=== PATIENT | male | born 1960 | race Caucasian/White ===

== ENCOUNTER 2017-06-11 08:42 | Observation (INO) ==
[2017-06-11] MEDS ORDERED: Albuterol 2.5 MG/3 ML NEBULIZER IH ONE (09:10)
[2017-06-11] MEDS ORDERED: CeFAZolin Syr 2,000MG/20 ML 2,000 MG/20 ML SYRINGE IVPB ONE (09:10)
[2017-06-11] MEDS ORDERED: Ringers Solution, Lactated 1,000 ML IVC SCH (09:15)
[2017-06-11] MEDS ORDERED: *HR* FentaNYL (PF) 100 MCG/2 ML VIAL ONE ×2 (09:37→10:56)
[2017-06-11] MEDS ORDERED: Ondansetron 4 MG/2 ML VIAL ONE (09:37)
[2017-06-11] MEDS ORDERED: Dexamethasone 4 MG/ML VIAL ONE (09:37)
[2017-06-11] MEDS ORDERED: *HR* Midazolam HCl 2 MG/2 ML VIAL ONE (09:37)
[2017-06-11] MEDS ORDERED: Lidocaine -MPF 2% 2 ML VIAL ONE (09:37)
[2017-06-11] MEDS ORDERED: *HR* Propofol 200 MG/20 ML VIAL IVP ONE (09:37)
--- NOTE | 2017-06-11 09:37 | Anesthesia Evaluation PreOp ---
Date of Encounter: 06/11/17 Time of Encounter: 09:35 - Past History Planned Operation: Right Ureteroscopic Stone Extraction Cardiac History: HTN, Hyperlipidemia, Arrhythmia (H/O A-Fib) Pulmonary History: Asthma GROUNDS CLEANER History: Denies Any Significant HX Other Medical History: Renal (kidney stones), Diabetes Type II, GERD Anesthesia History: No Prior Anesthetic Complications, Past Anesthesia Alcohol Use: none Drug use: none Medications and Allergies Albuterol Sulfate [Proventil Hfa] 6.7 gm IH PRN PRN 03/22/15 [History] Aspirin Enteric Coated [Aspirin EC] 81 mg PO DAILY 03/22/15 [History] Budesonide/Formoterol 160/4.5 [Symbicort 160/4.5] 2 puff IH BIDR 03/22/15 [ History] Gabapentin [Neurontin] 300 mg PO BID 03/22/15 [History] Isosorbide MONOnitrate (24 HR) [Imdur] 30 mg PO DAILY 03/22/15 [History] Losartan [Cozaar] 25 mg PO DAILY 03/22/15 [History] Metoprolol [Lopressor] 25 mg PO BID 03/22/15 [History] Omeprazole [PriLOSEC] 40 mg PO HS 03/22/15 [History] Simvastatin [Zocor] 20 mg PO HS 03/22/15 [History] Ferrous Sulfate 325 mg PO DAILY 11/01/15 [History] Fluticasone Propionate Nasal [Flonase] 1 spr NS DAILY PRN 06/11/17 [History] Loratadine [Allergy Relief] 10 mg PO DAILY 06/11/17 [History] Metformin HCl [Metformin HCl ER] 1,500 mg PO HS 06/11/17 [History] Multivitamin [One Daily Essential] 1 tab PO DAILY 06/11/17 [History] Rivaroxaban [Xarelto] 20 mg PO DAILY 06/11/17 [History] Sertraline [Zoloft] 25 mg PO DAILY 06/11/17 [History] 3 Allergy/AdvReac Type Severity Reaction Status Date / Time LYLA Inhibitors Allergy Cough Verified 06/06/17 09:13 - Meds/Allergy Pre-op Review Medications Reviewed: Yes Allergies Reviewed: Yes Beta Blockers on Current Med List: Yes If Beta Blockers taken, Date/Time (Last Dose taken): 06/11/2017 at 0730 Anesthesia Results - Labs Laboratory Tests 02/18/14 09/07/16 05/30/17 10:46 10:42 17:28 WBC Hgb Hct Plt Count PT 19.0 H PTT 27.3 INR 1.7 Sodium 133 L Potassium BUN 18 Creatinine 06/06/17 06/06/17 09:37 09:37 WBC 11.1 Hgb 10.0 L Hct 34.3 L Plt Count 430 H PT PTT INR Sodium Potassium 4.1 BUN Creatinine 1.17 - Imaging EKG: report reviewed (08/19/2016 SINUS RHYTHM WITH SINUS ARRHYTHMIA MODERATE VOLTAGE CRITERIA FOR LVH) Additional studies: 09/05/2016 Impression: Perfusion imaging was negative for ischemia or infarct. Pharmacologic ECG was negative for ischemia at the level of heart rate achieved. Patient described slight chest heaviness during pharmacologic infusion which is a non-diagnostic finding. Gated EF 58%. 09/05/2016 Echo Impressions: LVEF 55%. Normal left ventricular size and systolic function. There is evidence of moderate diastolic dysfunction of the left ventricle. Normal right ventricular size and function. No significant valvular dysfunction. No pulmonary hypertension. Anesthesia Exam O2 Sat Height 1.7 m Height 1.7 m Weight 88.451 kg Weight 88.451 kg O2 Sat by Pulse Oximetry 92 Vital Signs Temp Pulse Resp BP Pulse Ox 99.7 F H 92 18 128/77 92 06/11/17 09:06 06/11/17 09:06 06/11/17 09:06 06/11/17 09:06 06/11/17 09:06 Blood glucose: 151 Height: 5'7'' Weight: 195 lbs NPO (# of Hours): 8 Pain Scale: 5 (back) Pain Scale Used: Numeric (1 - 10) - HEENT Pupil (Motor): EOMI Mallampati: II Teeth: Normal, Missing Oral Opening: Greater than 3 - GROUNDS CLEANER LOC: Oriented GROUNDS CLEANER Motor: Normal RUE, Normal LUE, Normal RLE, Normal LLE, Normal Face GROUNDS CLEANER Sensory: Normal: RUE, LUE, Face, Deficit: RLE, LLE - Cardiac Rhythm: Regular Murmur: None - Pulmonary Breath Sounds: bilateral Clear Respiratory Effort: Symmetrical Anesthesia Assess/Plan ASA Score: 3 Modified [place] Scale for Level of Consciousness: Cooperative, oriented, and tranquil Anesthetic Plan: General Monitoring Plan: Standard Monitors Recovery Plan: PACU
[2017-06-11] MEDS ORDERED: *HR* Phenylephrine 10 MG/ML VIAL ONE (09:55)
--- NOTE | 2017-06-11 10:30 | History & Physical Report ---
Date of Encounter: 06/11/17 Time of Encounter: 10:30 24 Hour HP Update - Instructions Instructions: If the History and Physical is less than 30 days old and was completed prior to A.M. admission and or procedure and has NOT been updated on calendar day of procedure please complete this update prior to performing procedure. - Update Patient reports changes in Medical Condition: No Changes in examination, assessment, or condition: No Changes in Medication: No Preop tests/diagnostics Reviewed: Yes Surgery Remains Indicated: Yes Consent for Planned Operative Procedure(s) Verified: Yes - Pre-Operative Checklist Preoperative Checklist Indicated: Yes Prophylactic Antibiotic Ordered: Yes Home Medications Include Beta Sherman: Yes Is VTE Prophylaxis Indicated?: Yes
[2017-06-11] MEDS ORDERED: Ketorolac 30 MG/ML VIAL ONE (10:57)
[2017-06-11] MEDS ORDERED: Dexamethasone 4 MG/ML VIAL IVP ONE (11:02)
[2017-06-11] MEDS ORDERED: *HR* Promethazine 25 MG/ML VIAL IVP PRN (11:02)
[2017-06-11] MEDS ORDERED: Acetaminophen IV 1,000 MG/100 ML INFUS..BTL ONE (11:14)
--- NOTE | 2017-06-11 11:24 | Operative Note ---
Date of procedure: 06/11/17 Pre-op diagnosis: Right ureteral stone Post-op diagnosis: other (Right ureteral stone with urinary tract infection) Procedure: Right ureteroscopy, laser lithotripsy, basket stone extraction, and right ureteral stent placement. Implants: 6 Mongolian by 26 cm double-J stent Elder catheter Complications: None Anesthesia: GETA Surgeon: Sarabjit Goldberg Was there an assistant controller present: No Estimated blood loss (cc): 1 Specimen: Right ureteral stone Condition: stable Disposition: PACU Procedure in Detail: Indications: Mr. Ospina is a 56-year-old gentleman who has a history of right flank pain. A CT scan showed a stone in the mid right ureter. He elected to undergo a right ureteroscopy, laser lithotripsy, and stent placement. He is aware of the risks of the procedure including but not limited to bleeding, infection, injury to other structures, need for further procedures, stent irritation, and the risk of anesthesia. He is willing to proceed. Procedure: After informed consent was obtained the patient was brought back to the operating room and placed in supine position. A time out was performed. General anesthesia was administered and an LMA was placed. He was then placed in the lithotomy position. He was prepped and draped in the usual sterile fashion. Cystoscopy was performed. The anterior urethra was normal. There was no evidence of bladder tumors. The ureteral orifices were in the normal orthotopic position. The Zip wire was placed in the right ureteral orifice and brought into the kidney under fluoroscopic guidance. There was no purulent drainage from the kidney. The ureter was gently dilated with the 8/10 Mongolian ureteral dilator. I then advanced the semirigid ureteroscope into the ureter. The stone was fragmented using the 200 micron laser fiber into small pieces. The stone fragments were basket extracted. A 6 Mongolian by 26cm JJ stent was then placed with good curl seen in the kidney and the bladder. The dangle string was removed. The nurse diversified crops i farmworker then told me he had a temperature to 101. The bladder was drained with a Elder catheter. The patient was then awakened from general anesthesia and brought to recovery room in good condition. All sponge, needle, and instrument counts were correct.
[2017-06-11] MEDS ORDERED: Vancomycin 1,250 MG in D5% in Water 250 ML IVPB SCH (12:00)
[2017-06-11 12:07] LABS: Basophils % 0.3 %; Hematocrit 31.3 % (37.5-50.1); Hemoglobin 9.5 g/dL (12.9-16.9); Immature Granulocytes % 0.4 % (0-4); Lymphocytes # 1.3 K/mcL (0.6-4.6); Lymphocytes % 7.9 %; Mean Corpuscular HGB Conc 30.4 g/dL (31.6-35.5); Mean Corpuscular Hemoglobin 21.9 pg (28.0-33.3); Mean Corpuscular Volume 72.1 fL (83.0-100.0); Mean Platelet Volume 10.9 fL (9.4-12.4); Monocytes # 1.7 K/mcL (0.0-1.3); Monocytes % 10.5 %; Neutrophils # 12.8 K/mcL (1.6-8.9); Platelet Count 412 K/mcL (140-400); Red Blood Count 4.34 M/mcL (4.19-5.50); Red Cell Distribution Width 16.9 % (11.5-14.5); Segmented Neutrophils % 80.9 %
--- NOTE | 2017-06-11 12:27 | Anesthesia Evaluation Post Op ---
Date of Encounter: 06/11/17 Time of Encounter: 12:26 - Vital Signs Vital Signs: Last Vital Signs Temp 99.7 F H 06/11/17 09:06 Pulse 92 06/11/17 09:06 Resp 18 06/11/17 09:06 BP 128/77 06/11/17 09:06 Pulse Ox 92 06/11/17 09:06 - Lungs Lungs: Clear Ascult./Percussion - Airway Airway: Non-obstructed - Cardiovascular Regular Rate - Mental Status Mental Status: Alert & Oriented, Answers Appropriately - Pain Pain Scale: 0 Pain Scale used: Numeric (1 - 10) - Nausea Vomiting Nausea Vomiting: Not Present - Hydration Hydration: Tolerates oral liquids - Discharge PostOp Status: Transfer Patient to floor
[2017-06-11 12:35] LABS: Calcium 8.6 mg/dL (8.6-10.3); Carbon Dioxide 26 mEq/L (23-29); Chloride 99 mEq/L (98-107); Potassium 3.8 mEq/L (3.5-5.1); Sodium 133 mEq/L (136-145)
[2017-06-11 12:41] LABS: BUN/Creatinine Ratio 11 (6-26); Blood Urea Nitrogen 11 mg/dL (6-20); Glucose 148 mg/dL (70-105); Osmolality,Calculated 278 (280-300); eGFR For African Americans > 60 (> 60); eGFR For Non-African Americans > 60 (> 60)
[2017-06-11] MEDS ORDERED: D5% in Water 1,000 ML IVC PRN (13:18)
[2017-06-11] MEDS ORDERED: Dextrose Gel 15 GM/37.5 ML TUBE PO PRN ×2 (13:18)
[2017-06-11] MEDS ORDERED: Ondansetron 4 MG/2 ML VIAL IVP PRN (13:18)
[2017-06-11] MEDS ORDERED: *HR* Dextrose 50 % in Water (Syg) 50 ML SYRINGE IVP PRN (13:18)
[2017-06-11] MEDS ORDERED: Fluticasone Propionate Nasal 50 MCG/SPRAY BOTTLE NS PRN (13:18)
[2017-06-11] MEDS ORDERED: Acetaminophen 325 MG TABLET PO PRN (13:18)
[2017-06-11] MEDS ORDERED: Naloxone 0.4 MG/ML INJ IVP PRN (13:18)
--- NOTE | 2017-06-11 13:19 | Event Note ---
Date of Encounter: 06/11/17 Time of Encounter: 13:16 Consult reasen: fever 101 1. SIRS Unclear etiology, check a UA, blood cultures and a nasal swab for respiratory viral infections The patient's grandson was diagnosed weeks ago with influenza and the patient has been coughing since yesterday. May continue Zosyn for now as the patient has been on ciprofloxacin for the last week Mild hydration 2. Right ureteral stone status post laser lithotripsy and stone extraction, has a right ureteral stent Managed by primary team/urology 3. History of diastolic CHF, manage IV fluids with caution 4. A. fib, continue beta malia and Xarelto Thank you for consult: Please call with any questions. Consult note will be completed by resident Uzair Rivero
--- NOTE | 2017-06-11 13:38 | Internal Medicine Consult Note ---
<Uzair Rivero - Last Filed: 06/11/17 13:41> Date of Encounter: 06/11/17 Time of Encounter: 13:33 - Assessment and Plan (1) SIRS (systemic inflammatory response syndrome) Current Visit: Yes Status: Acute Assessment and plan: Patient presented after procedure with fever of 101 which has since resolved but also has leukocytosis of 15 Unclear etiology of infection but cannot rule out urinary tract post- procedurally, pulmonary, or viral Will obtain blood and urine cultures and respiratory infection panel as patient had exposure to influenza relative Continue broad spectrum coverage with Vancomycin and Zosyn; anticipate will stop Vanc tomorrow if blood cultures remain negative Gentle IVF hydration in setting of history of CHF (2) Right ureteral stone Current Visit: Yes Status: Acute Assessment and plan: POD # 0 ureteroscopy, laser lithotripsy and stone extraction, with placement of right ureteral stent Primary team is urology, will defer to them for management Continue supportive measures with analgesics KUB pending (3) Chronic diastolic CHF (congestive heart failure) Current Visit: Yes Status: Chronic Assessment and plan: Not currently in exacerbation, but patient has mild effusion on CXR Gentle hydration in setting of infection Patient does not have diuretics listed on home medications (4) Paroxysmal A-fib Current Visit: Yes Status: Chronic Assessment and plan: Currently rate controlled with home BB Holding Xarelto in setting of hematuria s/p urologic procedure, will resume once this resolves (5) Hypertension Current Visit: Yes Status: Chronic Assessment and plan: Blood pressures stable after procedure Continue home Losartan and Metoprolol Qualifiers: Hypertension type: essential hypertension Qualified Code(s): I10 - Essential (primary) hypertension (6) COPD (chronic obstructive pulmonary disease) Current Visit: Yes Status: Chronic Assessment and plan: Not currently in exacerbation Continue home breathing treatments and wean off supplemental oxygen as tolerated Qualifiers: Qualified Code(s): J44.9 - Chronic obstructive pulmonary disease, unspecified (7) DVT prophylaxis Current Visit: Yes Status: Acute Assessment and plan: EPCDs while holding Xarelto as above Internal Medicine - CN: HPI - Data of Consult Patient: new to practice Consult date: 06/11/17 Requesting Physician: Sarabjit Goldberg, - Consult Narrative Reason for consult: post-op fever History of present illness: Mr. Ospina is a 56 year old male who presents with post-op fever after undergoing right ureteroscopy, laser lithotripsy, basket stone extraction, and right ureteral stent placement by urology. According to post-op documentation, he did have a fever of 101 just after the procedure. Patient is with his who is able to assist with history. They mentioned that for the last week, he had been having intermittent low grade fevers of 99, and that he had a relative who had been diagnosed with influenza. He was started on Ciprofloxacin by the urologist a week prior for possible kidney/urinary tract infection. Patient states that he does not feel febrile now but does feel sweaty. He has no issues with chest pain or shortness of breath, but is on 2 L of oxygen now whereas he does not take any at home. He still complains of right flank pain but states this is similar to the area of his kidney stone. Denies any nausea, vomiting, diarrhea, lightheadedness. Past Med Surg Social Fam HX - Past Medical History Medical history: arthritis, asthma, atrial fibrillation, COPD, coronary artery disease, diabetes, GERD, hypertension, kidney stones Psychiatric history: anxiety - Past Surgical History Surgical History: herniorrhaphy - Social History Smoking Status: Never smoker Smokeless Tobacco Status: No Alcohol use: none Drug use: none - Family History Mother Living Status: Hx Family Cardiac Disorders: Yes (HTN) Hx Family Endocrine Disorder: Yes - Constitutional Constitutional: fever(s), malaise, no chills, no weakness - Cardiovascular Cardiovascular ROS IM: irregular heart rhythm, no chest pain, no diaphoresis, no dyspnea, no dyspnea on exertion, no edema, no lightheadedness, no syncope - Respiratory Respiratory: cough, dyspnea on exertion, no dyspnea, no hemoptysis - Gastrointestinal Gastrointestinal: no abdominal pain, no diarrhea, no nausea, no vomiting - Genitourinary Genitourinary ROS male: no difficulty urinating, no hematuria - Musculoskeletal Musculoskeletal ROS IM: no joint swelling, no numbness, no stiffness, no tingling - Integumentary Integumentary IM: no erythema, no new lesions, no rash, no skin ulcer - Neurological Neurological ROS: no abnormal gait, no confusion, no headache(s), no numbness, no tingling, no weakness - Endocrine Endocrine IM: excessive sweating, no cold intolerance, no polyuria Internal Medicine - CN: Meds Albuterol Sulfate [Proventil Hfa] 6.7 gm IH PRN PRN 11/09/15 [History] Aspirin Enteric Coated [Aspirin EC] 81 mg PO DAILY 03/22/15 [History] Budesonide/Formoterol 160/4.5 [Symbicort 160/4.5] 2 puff IH BIDR 03/22/15 [ History] Gabapentin [Neurontin] 300 mg PO BID 03/22/15 [History] Isosorbide MONOnitrate (24 HR) [Imdur] 30 mg PO DAILY 03/22/15 [History] Losartan [Cozaar] 25 mg PO DAILY 03/22/15 [History] Metoprolol [Lopressor] 25 mg PO BID 03/22/15 [History] Omeprazole [PriLOSEC] 40 mg PO HS 03/22/15 [History] Simvastatin [Zocor] 20 mg PO HS 03/22/15 [History] Ferrous Sulfate 325 mg PO DAILY 11/01/15 [History] Fluticasone Propionate Nasal [Flonase] 1 spr NS DAILY PRN 06/11/17 [History] Loratadine [Allergy Relief] 10 mg PO DAILY 06/11/17 [History] Metformin HCl [Metformin HCl ER] 1,500 mg PO HS 06/11/17 [History] Multivitamin [One Daily Essential] 1 tab PO DAILY 06/11/17 [History] Rivaroxaban [Xarelto] 20 mg PO DAILY 06/11/17 [History] Sertraline [Zoloft] 25 mg PO DAILY 06/11/17 [History] 3 Allergy/AdvReac Type Severity Reaction Status Date / Time LYLA Inhibitors Allergy Cough Verified 06/06/17 09:13 Internal Medicine - CN: Exam - Constitutional Vitals: Temp Pulse Resp BP Pulse Ox 97.7 F 73 14 109/65 95 06/11/17 12:38 06/11/17 12:38 06/11/17 12:38 06/11/17 12:38 06/11/17 12:38 General appearance IM: Present: cooperative, pleasant, no acute distress, answers questions appropriately - Head Head exam: Present: atraumatic, normocephalic - Eye Eye exam: Present: EOMI, PERRL - ENT ENT exam: Present: mucous membranes dry - Respiratory Respiratory exam: Present: CTAB. Absent: respiratory distress, wheezes - Cardiovascular Cardiovascular exam IM: Present: RRR - GI/Abdominal GI/Abdominal exam IM: Present: normal bowel sounds. Absent: distended, guarding , tenderness Additional comments: multiple scars from previous surgeries - Extremities Exam Extremities exam IM: Present: warm. Absent: cyanotic, pedal edema, tenderness - Back Exam Back exam: Present: CVA tenderness (R) - Neurological Exam Neurological exam: Present: alert, no focal deficits. Absent: facial droop, speech deficit - Psychiatric Psychiatric exam: Present: normal affect, normal mood. Absent: agitated, anxious - Skin Skin exam IM: Present: dry, intact Internal Medicine - CN: Reslt - Labs CBC & Chem 7: 06/11/17 11:55 06/11/17 11:55 Labs: Short CBC 06/11/17 Range/Units 11:55 WBC 15.8 H (4.3-11.1) K/mcL Hgb 9.5 L (12.9-16.9) g/dL Hct 31.3 L (37.5-50.1) % Plt Count 412 H (140-400) K/mcL Neutrophils # 12.8 H (1.6-8.9) K/mcL BMP 06/11/17 11:55 Sodium 133 L Potassium 3.8 Chloride 99 Carbon Dioxide 26 BUN 11 Creatinine 1.03 Glucose 148 H Calcium 8.6 - Impressions Impressions Fluoroscopy 06/11/17 00:00 IMPRESSION: Intraprocedural fluoroscopic spot images as above. See separate procedure report for more information. D/ / 06/11/2017 12:40:03 Melo Rosales MD / [facility] Interpreting Provider: Melo Rosales MD Chest X-Ray 06/11/17 11:25 IMPRESSION: Technically limited exam demonstrates no definite focal infiltrate. Evidence of mild subpulmonic right pleural effusion. Otherwise unremarkable chest. D/ / Haider Patel / Haider Patel Interpreting Provider: Haider Patel Consult Discharge Plan - Plan Referrals: Ruth Santos MD [Primary Care Provider] - <Blanco Peña - Last Filed: 06/11/17 15:02> Date of Encounter: 06/11/17 Internal Medicine - CN: HPI - Data of Consult Requesting Physician: Sarabjit Goldberg, - Consult Narrative History of present illness: Mr. Ospina is a 56 year old male Internal Medicine - CN: Exam - Constitutional Vitals: Temp Pulse Resp BP Pulse Ox 97.7 F 73 14 109/65 95 06/11/17 12:38 06/11/17 12:38 06/11/17 12:38 06/11/17 12:38 06/11/17 12:38 Internal Medicine - CN: Reslt - Labs CBC & Chem 7: 06/11/17 11:55 06/11/17 11:55 Labs: Short CBC 06/11/17 Range/Units 11:55 WBC 15.8 H (4.3-11.1) K/mcL Hgb 9.5 L (12.9-16.9) g/dL Hct 31.3 L (37.5-50.1) % Plt Count 412 H (140-400) K/mcL Neutrophils # 12.8 H (1.6-8.9) K/mcL BMP 06/11/17 11:55 Sodium 133 L Potassium 3.8 Chloride 99 Carbon Dioxide 26 BUN 11 Creatinine 1.03 Glucose 148 H Calcium 8.6 - Impressions Impressions Fluoroscopy 06/11/17 00:00 IMPRESSION: Intraprocedural fluoroscopic spot images as above. See separate procedure report for more information. D/ / 06/11/2017 12:40:03 Melo Rosales MD / [facility] Interpreting Provider: Melo Rosales MD Chest X-Ray 06/11/17 11:25 IMPRESSION: Technically limited exam demonstrates no definite focal infiltrate. Evidence of mild subpulmonic right pleural effusion. Otherwise unremarkable chest. D/ / Haider Patel / Haider Patel Interpreting Provider: Haider Patel - Attending Attestation Past medical history diastolic CHF with an ejection fraction of 55% and moderate diastolic dysfunction measured on August 2016, atrial fibrillation on Xarelto, COPD not oxygen dependent, diabetes type 2 not insulin-dependent, hypertension, OsteoARTHRITIS, CAD, GERD. Past surgical history: multiple abdominal surgeries due to prior bowel perforation , herniorrhaphy Family history mother with myocardial infarction and hypertension Date of Encounter: 06/11/17 Time of Encounter: 13:16 Consult reason: fever 101 1. SIRS Unclear etiology, check a UA, blood cultures and a nasal swab for respiratory viral infections The patient's grandson was diagnosed weeks ago with influenza and the patient has been coughing since yesterday. May continue Zosyn for now as the patient has been on ciprofloxacin for the last week Mild hydration 2. Right ureteral stone status post laser lithotripsy and stone extraction, has a right ureteral stent Managed by primary team/urology 3. History of diastolic CHF, manage IV fluids with caution 4. A. fib, continue beta malia and Xarelto 5. Diabetes type 2 not insulin-dependent, continue insulin sliding scale Thank you for consult: Please call with any questions. I examined this patient and my medical decision-making was reviewed with the Resident Physician. I agree with the documented findings, disposition and treatment plan as described except to the extent set forth below.
[2017-06-11 14:55] LABS: Bilirubin,Urine Large (Negative); Blood,Urine Large (Negative); Clarity,Urine Turbid (Clear); Color,Urine Red (Yellow); Glucose,Urine (UA) 100 mg/dL (Normal); Ketones,Urine 40 mg/dL (Negative); Leukocyte Esterase,Urine Large (Negative); Nitrite,Urine Positive (Negative); Protein,Urine >=300 mg/dL (Neg-Trace); Specific Gravity,Urine 1.023 (1.010-1.025); Urobilinogen,Urine Normal (Normal)
[2017-06-11 14:57] LABS: Bacteria,Urine None Seen per hpf (None-Few); RBC,Urine TNTC per hpf (0-3); Squamous Epithelial Cell,Urine None Seen per lpf (None-Few); WBC,Urine 0-3 per hpf (0-3)
[2017-06-11 15:22] LABS: Hyaline Casts,Urine None Seen per lpf (None-Few)
[2017-06-11] MEDS: Insulin LISPRO 300 UNITS/3 ML VIAL SQ SCH ×2 (16:05→18:17)
[2017-06-11] MEDS: Vancomycin 1,250 MG in D5% in Water 250 ML IVPB SCH (16:05)
[2017-06-11] MEDS: *HR* OxyCODONE Immed Rel 5 MG TABLET PO PRN ×2 (16:14→22:42)
[2017-06-11] MEDS: 0.9 % Sodium Chloride 1,000 ML IVC SCH (16:15)
[2017-06-11] MEDS: Gabapentin 300 MG CAPSULE PO SCH (21:31)
[2017-06-11] MEDS: *HR* Metformin 500 MG TABLET PO SCH (21:31)
[2017-06-11] MEDS: Budesonide/Formoterol 160/4.5 MDI IH SCH (22:24)
[2017-06-12] MEDS: Vancomycin 1,250 MG in D5% in Water 250 ML IVPB SCH ×2 (03:23→14:22)
[2017-06-12] MEDS: 0.9 % Sodium Chloride 1,000 ML IVC SCH (03:23)
[2017-06-12 04:59] LABS: Basophils % 0.1 %; Hematocrit 31.2 % (37.5-50.1); Hemoglobin 9.5 g/dL (12.9-16.9); Immature Granulocytes % 0.6 % (0-4); Lymphocytes # 1.1 K/mcL (0.6-4.6); Lymphocytes % 6.7 %; Mean Corpuscular HGB Conc 30.4 g/dL (31.6-35.5); Mean Corpuscular Hemoglobin 21.9 pg (28.0-33.3); Mean Corpuscular Volume 72.1 fL (83.0-100.0); Mean Platelet Volume 10.8 fL (9.4-12.4); Monocytes # 1.5 K/mcL (0.0-1.3); Monocytes % 9.1 %; Neutrophils # 13.5 K/mcL (1.6-8.9); Platelet Count 408 K/mcL (140-400); Red Blood Count 4.33 M/mcL (4.19-5.50); Segmented Neutrophils % 83.5 %
[2017-06-12 05:24] LABS: BUN/Creatinine Ratio 13 (6-26); Blood Urea Nitrogen 11 mg/dL (6-20); Calcium 8.3 mg/dL (8.6-10.3); Carbon Dioxide 27 mEq/L (23-29); Chloride 100 mEq/L (98-107); Glucose 275 mg/dL (70-105); Osmolality,Calculated 287 (280-300); Potassium 3.7 mEq/L (3.5-5.1); Sodium 134 mEq/L (136-145); eGFR For African Americans > 60 (> 60); eGFR For Non-African Americans > 60 (> 60)
--- NOTE | 2017-06-12 07:19 | Urology Progress Note ---
Date of Encounter: 06/12/17 Time of Encounter: 07:17 - Assessment and Plan (1) Ureteral stone Current Visit: Yes Status: Acute Assessment and plan: Status post right ureteroscopy, laser lithotripsy, and stent placement. Postoperative day #1. Urine is clearing. He has been afebrile. He is feeling well. (2) SIRS (systemic inflammatory response syndrome) Current Visit: Yes Status: Acute Assessment and plan: Appreciate internal medicine consultation. We'll get respiratory panel today. I will check a chest x-ray as well. Discontinue IV fluids. Discontinue Elder catheter. We'll reassess this afternoon. If all testing returns back negative, may consider discharge home with oral antibiotic. Progress Note Narrative: Feeling well today. No fevers overnight. Urine is clearing and the catheter. White blood cell count is slightly elevated from yesterday. Objective Initial Vital Signs Temp Pulse Resp BP Pulse Ox 99.7 F H 92 18 128/77 92 06/11/17 09:06 06/11/17 09:06 06/11/17 09:06 06/11/17 09:06 06/11/17 09:06 - General physical appearance Present: well developed, well nourished, no distress - Respiratory Present: normal respiratory effort - Abdomen Present: soft - Genitourinary Urine Appearance: Present: Clear, Hematuria (Light pink-colored urine.) - Labs 06/12/17 04:30 06/12/17 04:30 Diabetes panel 06/11/17 06/12/17 Range/Units 11:55 04:30 Sodium 133 L 134 L (136-145) mEq/L Potassium 3.8 3.7 (3.5-5.1) mEq/L Chloride 99 100 (98-107) mEq/L Carbon Dioxide 26 27 (23-29) mEq/L BUN 11 11 (6-20) mg/dL Creatinine 1.03 0.87 (0.70-1.30) mg/dL Glucose 148 H 275 H (70-105) mg/dL Calcium 8.6 8.3 L (8.6-10.3) mg/dL Calcium panel 06/11/17 06/12/17 Range/Units 11:55 04:30 Calcium 8.6 8.3 L (8.6-10.3) mg/dL Pituitary panel 06/11/17 06/12/17 Range/Units 11:55 04:30 Sodium 133 L 134 L (136-145) mEq/L Potassium 3.8 3.7 (3.5-5.1) mEq/L Chloride 99 100 (98-107) mEq/L Carbon Dioxide 26 27 (23-29) mEq/L BUN 11 11 (6-20) mg/dL Creatinine 1.03 0.87 (0.70-1.30) mg/dL Glucose 148 H 275 H (70-105) mg/dL Calcium 8.6 8.3 L (8.6-10.3) mg/dL Adrenal panel 06/11/17 06/12/17 Range/Units 11:55 04:30 Sodium 133 L 134 L (136-145) mEq/L Potassium 3.8 3.7 (3.5-5.1) mEq/L Chloride 99 100 (98-107) mEq/L Carbon Dioxide 26 27 (23-29) mEq/L BUN 11 11 (6-20) mg/dL Creatinine 1.03 0.87 (0.70-1.30) mg/dL Glucose 148 H 275 H (70-105) mg/dL Calcium 8.6 8.3 L (8.6-10.3) mg/dL - VTE Documentation of Mechanical Device: Intermittent pneumatic compression device Consult Discharge Plan - Plan Referrals: Ruth Santos MD [Primary Care Provider] -
[2017-06-12] MEDS: Gabapentin 300 MG CAPSULE PO SCH (08:17)
[2017-06-12] MEDS: *HR* Metformin 500 MG TABLET PO SCH (08:18)
[2017-06-12] MEDS: Insulin LISPRO 300 UNITS/3 ML VIAL SQ SCH ×3 (08:18→17:18)
--- NOTE | 2017-06-12 08:24 | Internal Med Progress Note ---
<Uzair Rivero - Last Filed: 06/12/17 13:08> Date of Encounter: 06/12/17 Time of Encounter: 08:23 - Assessment and plan (1) SIRS (systemic inflammatory response syndrome) Current Visit: Yes Status: Acute Assessment and plan: Patient presented after procedure with fever of 101 which has since resolved but still has leukocytosis of 16 Unclear etiology of infection but cannot rule out urinary tract post- procedurally, pulmonary, or viral Blood and urine cultures and respiratory infection panel pending Continue broad spectrum coverage with Vancomycin and Zosyn Possible discharge today if cultures remain negative (2) Right ureteral stone Current Visit: Yes Status: Acute Assessment and plan: POD # 1 ureteroscopy, laser lithotripsy and stone extraction, with placement of right ureteral stent Primary team is urology, will defer to them for management Continue supportive measures with analgesics KUB pending (3) Chronic diastolic CHF (congestive heart failure) Current Visit: Yes Status: Chronic Assessment and plan: Not currently in exacerbation, but patient has mild effusion on CXR Patient does not have diuretics listed on home medications, but appears euvolemic on exam (4) Paroxysmal A-fib Current Visit: Yes Status: Chronic Assessment and plan: Currently rate controlled with home BB Holding Xarelto in setting of hematuria s/p urologic procedure, will resume once this resolves (5) Hypertension Current Visit: Yes Status: Chronic Assessment and plan: Blood pressures stable after procedure Continue home Losartan and Metoprolol Qualifiers: Hypertension type: essential hypertension Qualified Code(s): I10 - Essential (primary) hypertension (6) COPD (chronic obstructive pulmonary disease) Current Visit: Yes Status: Chronic Assessment and plan: Not currently in exacerbation Continue home breathing treatments and wean off supplemental oxygen as tolerated Qualifiers: Qualified Code(s): J44.9 - Chronic obstructive pulmonary disease, unspecified (7) DVT prophylaxis Current Visit: Yes Status: Acute Assessment and plan: EPCDs while holding Xarelto as above - Subjective Interval history: Pt seen and examined. He states he is doing well this morning and has no fevers overnight. Denies any chest pain, nausea, vomiting, shortness of breath or diarrhea. His urine has cleared up since yesterday and his back pain has improved as well. - Constitutional Vitals: Temp Pulse Resp BP Pulse Ox 97.7 F 64 16 119/74 94 06/12/17 07:42 06/12/17 07:42 06/12/17 07:42 06/12/17 07:42 06/12/17 07:42 General appearance: Present: cooperative, pleasant, no acute distress, answers questions appropriately - Head Head exam: Present: atraumatic, normocephalic - Eye Eye exam: Present: PERRL, conjuntiva pink, sclera anicteric - Neck Neck exam general surgery: Present: supple, trachea midline. Absent: lymphadenopathy - Respiratory Respiratory exam: Present: CTAB. Absent: accessory muscle use, rales, rhonchi, wheezes - Cardiovascular Cardiovascular exam: Present: RRR, +S1, +S2. Absent: diastolic murmur, gallop, rubs, systolic murmur - GI/Abdominal GI/Abdominal exam: Present: normal bowel sounds, soft, no peritoneal signs. Absent: distended, tenderness - Extremities Exam Extremities exam: Present: warm, radial pulses palpable and symmetrical. Absent : calf tenderness, cyanotic, pedal edema - Neurological Exam Neurological exam: Present: alert, no focal deficits. Absent: facial droop, speech deficit - Skin Skin exam: Present: dry, intact Internal Medicine: Result - Labs CBC & Chem 7: 06/12/17 04:30 06/12/17 04:30 Labs: Short CBC 06/11/17 06/12/17 Range/Units 11:55 04:30 WBC 15.8 H 16.2 H (4.3-11.1) K/mcL Hgb 9.5 L 9.5 L (12.9-16.9) g/dL Hct 31.3 L 31.2 L (37.5-50.1) % Plt Count 412 H 408 H (140-400) K/mcL Neutrophils # 12.8 H 13.5 H (1.6-8.9) K/mcL BMP 06/11/17 06/12/17 11:55 04:30 Sodium 133 L 134 L Potassium 3.8 3.7 Chloride 99 100 Carbon Dioxide 26 27 BUN 11 11 Creatinine 1.03 0.87 Glucose 148 H 275 H Calcium 8.6 8.3 L Urine 06/11/17 Range/Units 12:05 Urine Color Red A (Yellow) Urine Clarity Turbid A (Clear) Urine pH 5.0 (5.0-8.0) pH Units Ur Specific [place] 1.023 (1.010-1.025) Urine Protein >=300 H (Neg-Trace) mg/dL Urine Glucose (UA) 100 H (Normal) mg/dL - Impressions Impressions Fluoroscopy 06/11/17 00:00 IMPRESSION: Intraprocedural fluoroscopic spot images as above. See separate procedure report for more information. D/ / 06/11/2017 12:40:03 Melo Rosales MD / [email or web address] Interpreting Provider: Melo Rosales MD Chest X-Ray 06/11/17 11:25 IMPRESSION: Technically limited exam demonstrates no definite focal infiltrate. Evidence of mild subpulmonic right pleural effusion. Otherwise unremarkable chest. D/ / Haider Patel / Haider Patel Interpreting Provider: Haider Patel - VTE Documentation of Mechanical Device: Intermittent pneumatic compression device Consult Discharge Plan - Plan Referrals: Ruth Santos MD [Primary Care Provider] - <Blanco Peña - Last Filed: 06/12/17 15:14> Date of Encounter: 06/12/17 - Constitutional Vitals: Temp Pulse Resp BP Pulse Ox 98.0 F 73 16 127/68 94 06/12/17 14:43 06/12/17 14:43 06/12/17 14:43 06/12/17 14:43 06/12/17 14:43 Internal Medicine: Result - Labs CBC & Chem 7: 06/12/17 04:30 06/12/17 04:30 Labs: Short CBC 06/12/17 Range/Units 04:30 WBC 16.2 H (4.3-11.1) K/mcL Hgb 9.5 L (12.9-16.9) g/dL Hct 31.2 L (37.5-50.1) % Plt Count 408 H (140-400) K/mcL Neutrophils # 13.5 H (1.6-8.9) K/mcL BMP 06/12/17 04:30 Sodium 134 L Potassium 3.7 Chloride 100 Carbon Dioxide 27 BUN 11 Creatinine 0.87 Glucose 275 H Calcium 8.3 L - Impressions Impressions Fluoroscopy 06/11/17 00:00 IMPRESSION: Intraprocedural fluoroscopic spot images as above. See separate procedure report for more information. D/ / 06/11/2017 12:40:03 Melo Rosales MD / [facility]i Interpreting Provider: Melo Rosales MD Chest X-Ray 06/12/17 07:20 IMPRESSION: Mild patchy airspace disease right lung base, new. Atelectasis versus developing infection. D/ / Lila Grace MD / Lila Grace MD Interpreting Provider: Lila Grace MD - Attending Attestation Respiratory infection panel was negative Urine culture did not grow any bacteria Okay to discontinue vancomycin and Zosyn, okay to discharge per primary team/ urology May hold Xarelto one more day due to a small amount of persistent hematuria I examined this patient and my medical decision-making was reviewed with the Resident Physician. I agree with the documented findings, disposition and treatment plan as described except to the extent set forth below.
[2017-06-12] MEDS: Budesonide/Formoterol 160/4.5 MDI IH SCH (08:49)
[2017-06-12] MEDS ORDERED: Isosorbide MONOnitrate (24 HR) 30 MG TAB.ER.24H PO SCH (09:00)
[2017-06-12] MEDS ORDERED: Loratadine 10 MG TABLET PO SCH (09:00)
[2017-06-12] MEDS ORDERED: Aspirin Enteric Coated 81 MG Tablet PO SCH (09:00)
[2017-06-12 14:22] LABS: Adenovirus Not Detected (Not Detect); Bordetella Pertussis Not Detected (Not Detect); Chlamydophila pneumoniae Not Detected (Not Detect); Coronavirus 229E Not Detected (Not Detect); Coronavirus HKU1 Not Detected (Not Detect); Coronavirus NL63 Not Detected (Not Detect); Coronavirus OC43 Not Detected (Not Detect); Human Metapneumovirus Not Detected (Not Detect); Human Rhinovirus/Enterovirus Not Detected (Not Detect); Influenza A Subtype 2009 H1 Not Detected (Not Detect); Influenza A Untypeable Not Detected (Not Detect); Influenza B Not Detected (Not Detect); Mycoplasma pneumoniae Not Detected (Not Detect); Parainfluenza Virus 1 Not Detected (Not Detect); Parainfluenza Virus 2 Not Detected (Not Detect); Parainfluenza Virus 3 Not Detected (Not Detect); Parainfluenza Virus 4 Not Detected (Not Detect); Respiratory Syncytial Virus Not Detected (Not Detect)
[2017-06-12 14:44] VITALS: BP 127/68
--- NOTE | 2017-06-12 16:10 | Discharge Summary ---
Date of Encounter: 06/12/17 Time of Encounter: 16:06 - Discharge Diagnosis (1) Ureteral stone Priority: Primary Status: Acute (2) SIRS (systemic inflammatory response syndrome) Priority: Secondary Status: Acute - Discharge Medications Prescriptions: Cefdinir [Omnicef] 300 mg PO BID #14 capsule Docusate [Colace] 100 mg PO BID #60 capsule Oxycodone HCl/Acetaminophen [Percocet 10-325 mg Tablet] 1 each PO Q6H PRN 4 Days #15 tablet PRN Reason: Pain Home Medications: Albuterol Sulfate [Proventil Hfa] 6.7 gm IH PRN PRN 03/22/15 [History] Aspirin Enteric Coated [Aspirin EC] 81 mg PO DAILY 03/22/15 [History] Budesonide/Formoterol 160/4.5 [Symbicort 160/4.5] 2 puff IH BIDR 03/22/15 [ History] Gabapentin [Neurontin] 300 mg PO BID 03/22/15 [History] Isosorbide MONOnitrate (24 HR) [Imdur] 30 mg PO DAILY 03/22/15 [History] Losartan [Cozaar] 25 mg PO DAILY 03/22/15 [History] Metoprolol [Lopressor] 25 mg PO BID 03/22/15 [History] Omeprazole [PriLOSEC] 40 mg PO HS 03/22/15 [History] Simvastatin [Zocor] 20 mg PO HS 03/22/15 [History] Ferrous Sulfate 325 mg PO DAILY 11/01/15 [History] Fluticasone Propionate Nasal [Flonase] 1 spr NS DAILY PRN 06/11/17 [History] Loratadine [Allergy Relief] 10 mg PO DAILY 06/11/17 [History] Metformin HCl [Metformin HCl ER] 1,500 mg PO HS 06/11/17 [History] Multivitamin [One Daily Essential] 1 tab PO DAILY 06/11/17 [History] Rivaroxaban [Xarelto] 20 mg PO DAILY 06/11/17 [History] Sertraline [Zoloft] 25 mg PO DAILY 06/11/17 [History] Cefdinir [Omnicef] 300 mg PO BID #14 capsule 06/12/17 [Rx] Docusate [Colace] 100 mg PO BID #60 capsule 06/12/17 [Rx] Oxycodone HCl/Acetaminophen [Percocet 10-325 mg Tablet] 1 each PO Q6H PRN 4 Days #15 tablet 06/12/17 [Rx] Allergies/Adverse Reactions: 3 Allergy/AdvReac Type Severity Reaction Status Date / Time LYLA Inhibitors Allergy Cough Verified 06/06/17 09:13 Labs on day of discharge: Labs from last 24 hours 06/12/17 06/12/17 06/12/17 13:10 07:45 04:30 WBC RBC Hgb Hct MCV MCH MCHC RDW Plt Count MPV Immature Gran % Seg Neutrophils % Lymphocytes % Monocytes % Eosinophils % Basophils % Neutrophils # Lymphocytes # Monocytes # Eosinophils # Basophils # Sodium 134 L Potassium 3.7 Chloride 100 Carbon Dioxide 27 BUN 11 Creatinine 0.87 Est GFR ( Amer) > 60 Est GFR (Non-Af Amer) > 60 BUN/Creatinine Ratio 13 Glucose 275 H POC Glucose 167 H Calculated Osmolality 287 Calcium 8.3 L Chlamy pneumoniae PCR Not Detected Adenovirus (PCR) Not Detected B. pertussis DNA (PCR) Not Detected B.parapertussis DNA PCR Not Detected Coronavirus OC43 (PCR) Not Detected Coronavirus HKU1 (PCR) Not Detected Coronavirus 229E (PCR) Not Detected Coronavirus NL63 (PCR) Not Detected Human Metapneumovir PCR Not Detected Influenza A (H1) PCR Not Detected Influ A (H1N1/09) PCR Not Detected Influenza A (H3) PCR Not Detected Influenza A Untype (PCR) Not Detected Influenza Type B (PCR) Not Detected M.pneumoniae DNA (PCR) Not Detected Parainfluenza 1 (PCR) Not Detected Parainfluenza 2 (PCR) Not Detected Parainfluenza 3 (PCR) Not Detected Parainfluenza 4 (PCR) Not Detected RSV (PCR) Not Detected Entero/Rhino (PCR) Not Detected 06/12/17 06/11/17 06/11/17 04:30 20:26 17:15 WBC 16.2 H RBC 4.33 Hgb 9.5 L Hct 31.2 L MCV 72.1 L MCH 21.9 L MCHC 30.4 L RDW 17.0 H Plt Count 408 H MPV 10.8 Immature Gran % 0.6 Seg Neutrophils % 83.5 Lymphocytes % 6.7 Monocytes % 9.1 Eosinophils % 0.0 Basophils % 0.1 Neutrophils # 13.5 H Lymphocytes # 1.1 Monocytes # 1.5 H Eosinophils # 0.0 Basophils # 0.0 Sodium Potassium Chloride Carbon Dioxide BUN Creatinine Est GFR ( Amer) Est GFR (Non-Af Amer) BUN/Creatinine Ratio Glucose POC Glucose 311 H 213 H Calculated Osmolality Calcium Chlamy pneumoniae PCR Adenovirus (PCR) B. pertussis DNA (PCR) B.parapertussis DNA PCR Coronavirus OC43 (PCR) Coronavirus HKU1 (PCR) Coronavirus 229E (PCR) Coronavirus NL63 (PCR) Human Metapneumovir PCR Influenza A (H1) PCR Influ A (H1N1/09) PCR Influenza A (H3) PCR Influenza A Untype (PCR) Influenza Type B (PCR) M.pneumoniae DNA (PCR) Parainfluenza 1 (PCR) Parainfluenza 2 (PCR) Parainfluenza 3 (PCR) Parainfluenza 4 (PCR) RSV (PCR) Entero/Rhino (PCR) - Impressions ITS Impressions Fluoroscopy 06/11/17 00:00 IMPRESSION: Intraprocedural fluoroscopic spot images as above. See separate procedure report for more information. D/ / 06/11/2017 12:40:03 Melo Rosales MD / [facility] Interpreting Provider: Melo Rosales MD Chest X-Ray 06/11/17 11:25 IMPRESSION: Technically limited exam demonstrates no definite focal infiltrate. Evidence of mild subpulmonic right pleural effusion. Otherwise unremarkable chest. D/ / Haider Patel / Haider Patel Interpreting Provider: Haider Patel Chest X-Ray 06/12/17 07:20 IMPRESSION: Mild patchy airspace disease right lung base, new. Atelectasis versus developing infection. D/ / Lila Grace MD / Lila Grace MD Interpreting Provider: Lila Grace MD Date of admission: 06/11/17 16:59 Primary care physician: Ruth Santos MD Discharging clinician: Sarabjit Goldberg Anticipated date of discharge: 06/12/17 - Patient Status Disposition: Home, Self-Care Condition: Good Functional capacity at discharge: independent ambulation Overall status at discharge: patient is progressing back to baseline - Discharge Instructions Follow Up With: Christian Silver MD [Partnered Physician] - (1 week for cystoscopy and stent removal. Or Dr. Askew. Whoever is available next week.) Additional Instructions: 1. The patient can follow up in 1 week for a cystoscopy and stent removal. 2. He should expect to feel flank pain with voiding. 3. The patient should call for any fevers, chills, nausea, emesis, or uncontrolled pain. 4. Please provide a work excuse if necessary for up to 1 week off. 5. Okay to resume anticoagulants in 1-2 days. - Diet and Activity Activity: increase activity as tolerated Diet: advance to your usual diet - Hospital Course Hospital course: Mr. Ospina is a 56 year old male with a history of right nephrolithiasis. On June 11, 2017 he underwent a right ureteroscopy, laser lithotripsy, stent placement. He developed a fever after surgery. He was admitted for further care. Blood and urine cultures were bilaterally negative. Respiratory panel was negative. On postoperative day #1 he remained afebrile. His antibiotics were discontinued. He was discharged home on oral antibiotic. - Time Spent with Patient Total time spent providing and/or coordinating discharge services: Less than 30 minutes Exam Initial Vital Signs Temp Pulse Resp BP Pulse Ox 99.7 F H 92 18 128/77 92 06/11/17 09:06 06/11/17 09:06 06/11/17 09:06 06/11/17 09:06 06/11/17 09:06 - General physical appearance Present: well developed, well nourished, no distress - Eyes Absent: icteric - ENT Present: normal nares - Neck Present: trachea midline - Respiratory Present: normal respiratory effort - Cardiovascular Cardiovascular exam IM: RRR - Abdomen Abdomen: Present: soft - VTE Documentation of Mechanical Device: Intermittent pneumatic compression device
[2017-06-12] MEDS ORDERED: Aminoglycoside Consult 1 EACH MC ONE (17:39)
[2017-06-12] MEDS ORDERED: Insulin LISPRO 300 UNITS/3 ML VIAL SQ SCH (21:00)
[2017-06-12] MEDS ORDERED: Insulin DETEMIR 100 UNIT/ML X5UNITS SQ SCH (21:00)
== END 2017-06-12 17:40 | disposition home or self-care (01) ==
LOC: SAMDAY 08:42 → 3ANU 08:42
PROVIDERS: ADMIT Urology; ATTEND Urology

== ENCOUNTER 2019-06-12 11:08 | Inpatient (IN) ==
[2019-06-12] MEDS ORDERED: Isovue-370 500 ML BOTTLE IVP ONE (11:33)
[2019-06-12] MEDS ORDERED: Morphine Sulfate 2 MG/ML SYRINGE IVP ONE (11:34)
[2019-06-12] MEDS ORDERED: Ondansetron 4 MG/2 ML VIAL IVP ONE ×2 (11:34→13:52)
[2019-06-12] MEDS ORDERED: 0.9 % Sodium Chloride 1,000 ML IVC ONE (11:38)
[2019-06-12 11:43] LABS: Basophils # 0.1 K/mcL (0.0-0.2); Basophils % 0.4 %; Hematocrit 47.6 % (37.5-50.1); Hemoglobin 15.8 g/dL (12.9-16.9); Immature Granulocytes % 0.5 % (0-4); Lymphocytes # 1.5 K/mcL (0.6-4.6); Lymphocytes % 9.1 %; Mean Corpuscular HGB Conc 33.2 g/dL (31.6-35.5); Mean Corpuscular Hemoglobin 29.1 pg (28.0-33.3); Mean Corpuscular Volume 87.7 fL (83.0-100.0); Mean Platelet Volume 11.8 fL (9.4-12.4); Monocytes # 1.5 K/mcL (0.0-1.3); Monocytes % 9.3 %; Neutrophils # 12.9 K/mcL (1.6-8.9); Platelet Count 342 K/mcL (140-400); Red Blood Count 5.43 M/mcL (4.19-5.50); Red Cell Distribution Width 12.9 % (11.5-14.5); Segmented Neutrophils % 80.7 %
[2019-06-12 12:05] LABS: Alanine Aminotransferase 67 Units/L (7-52); Albumin 4.8 g/dL (3.5-5.7); Albumin/Globulin Ratio 1.3 (1.1-2.2); Alkaline Phosphatase 107 Units/L (34-104); Aspartate Amino Transferase 50 Units/L (13-39); BUN/Creatinine Ratio 16 (6-26); Bilirubin,Direct 0.2 mg/dL (0.0-0.2); Bilirubin,Indirect 0.3 mg/dL (0.0-1.0); Bilirubin,Total 0.5 mg/dL (0.3-1.0); Blood Urea Nitrogen 14 mg/dL (6-20); Calcium 10.3 mg/dL (8.6-10.3); Carbon Dioxide 29 mEq/L (23-29); Chloride 93 mEq/L (98-107); Globulin 3.8 g/dL (2.4-3.5); Glucose 208 mg/dL (70-105); Lipase 28 Units/L (11-82); Osmolality,Calculated 289 (280-300); Potassium 4.1 mEq/L (3.5-5.1); Sodium 136 mEq/L (136-145); Total Protein 8.6 g/dL (6.4-8.9); eGFR For African Americans > 60 (> 60); eGFR For Non-African Americans > 60 (> 60)
[2019-06-12] MEDS ORDERED: Morphine Sulfate 2 MG/ML SYRINGE IVP PRN (13:51)
[2019-06-12] MEDS ORDERED: Naloxone 0.4 MG/ML INJ IVP PRN (14:38)
[2019-06-12] MEDS ORDERED: Ondansetron 4 MG/2 ML VIAL IVP PRN ×2 (14:38→16:03)
[2019-06-12] MEDS ORDERED: Ipratropium/Albuterol Neb 3 ML IH PRN (14:53)
[2019-06-12] MEDS ORDERED: *HR* LORazepam 2 MG/ML VIAL IVP ONE (14:59)
[2019-06-12] MEDS ORDERED: *HR* Metoprolol 5 MG/5 ML VIAL IVP PRN (15:01)
[2019-06-12] MEDS ORDERED: Lidocaine Jelly 11 ml Syringe MM STA (15:32)
[2019-06-12] MEDS ORDERED: Chloraseptic Spray 177 ML BOTTLE MM PRN (16:02)
[2019-06-12] MEDS: 0.9 % Sodium Chloride 1,000 ML IVC SCH (16:40)
[2019-06-12] MEDS: Pantoprazole 40 MG VIAL IVP SCH (17:40)
[2019-06-12] MEDS: Morphine Sulfate 2 MG/ML SYRINGE IVP PRN (20:13)
[2019-06-13 02:30] LABS: Basophils % 0.6 %; Hematocrit 37.8 % (37.5-50.1); Immature Granulocytes % 0.3 % (0-4); Lymphocytes # 1.2 K/mcL (0.6-4.6); Lymphocytes % 18.2 %; Mean Corpuscular HGB Conc 33.1 g/dL (31.6-35.5); Mean Corpuscular Hemoglobin 29.1 pg (28.0-33.3); Mean Corpuscular Volume 88.1 fL (83.0-100.0); Mean Platelet Volume 11.6 fL (9.4-12.4); Monocytes # 0.9 K/mcL (0.0-1.3); Monocytes % 12.7 %; Neutrophils # 4.6 K/mcL (1.6-8.9); Platelet Count 255 K/mcL (140-400); Red Blood Count 4.29 M/mcL (4.19-5.50); Red Cell Distribution Width 13.1 % (11.5-14.5); Segmented Neutrophils % 68.2 %
[2019-06-13 02:31] LABS: BUN/Creatinine Ratio 17 (6-26); Blood Urea Nitrogen 12 mg/dL (6-20); Calcium 8.2 mg/dL (8.6-10.3); Carbon Dioxide 29 mEq/L (23-29); Chloride 102 mEq/L (98-107); Glucose 98 mg/dL (70-105); Osmolality,Calculated 290 (280-300); Sodium 140 mEq/L (136-145); eGFR For African Americans > 60 (> 60); eGFR For Non-African Americans > 60 (> 60)
[2019-06-13 02:32] LABS: Hemoglobin 12.5 g/dL (12.9-16.9); White Blood Count 6.8 K/mcL (4.3-11.1)
[2019-06-13] MEDS: *HR* Heparin 5,000 UNIT/ML VIAL SQ SCH ×2 (04:56→05:02)
[2019-06-13] MEDS: Pantoprazole 40 MG VIAL IVP SCH ×2 (05:02→17:55)
[2019-06-13] MEDS ORDERED: Ondansetron 4 MG/2 ML VIAL IVP STA (07:19)
[2019-06-13] MEDS: Morphine Sulfate 2 MG/ML SYRINGE IVP PRN ×3 (09:34→21:33)
[2019-06-13] MEDS: 0.9 % Sodium Chloride 1,000 ML IVC SCH (09:35)
[2019-06-13] MEDS ORDERED: D5% in Water 1,000 ML IVC PRN (14:00)
[2019-06-13] MEDS ORDERED: *HR* Dextrose 50 % in Water (Syg) 50 ML SYRINGE IVP PRN (14:00)
[2019-06-13] MEDS ORDERED: Dextrose Gel 15 GM/37.5 ML TUBE PO PRN ×2 (14:00)
[2019-06-13] MEDS: Insulin LISPRO 300 UNITS/3 ML VIAL SQ SCH (16:33)
[2019-06-13] MEDS: *HR* Rivaroxaban 10 MG TABLET PO SCH (17:55)
[2019-06-13] MEDS: Budesonide/Formoterol 160/4.5 1 PUFF INH IH SCH (20:41)
[2019-06-14] MEDS: Insulin LISPRO 300 UNITS/3 ML VIAL SQ SCH ×5 (04:20→21:24)
[2019-06-14 06:12] LABS: Basophils % 0.9 %; Eosinophils % 0.9 %; Hemoglobin 12.5 g/dL (12.9-16.9); Lymphocytes # 1.2 K/mcL (0.6-4.6); Lymphocytes % 37.5 %; Mean Corpuscular HGB Conc 32.1 g/dL (31.6-35.5); Mean Corpuscular Hemoglobin 28.8 pg (28.0-33.3); Mean Corpuscular Volume 89.9 fL (83.0-100.0); Mean Platelet Volume 10.7 fL (9.4-12.4); Monocytes # 0.6 K/mcL (0.0-1.3); Monocytes % 17.2 %; Neutrophils # 1.4 K/mcL (1.6-8.9); Platelet Count 233 K/mcL (140-400); Red Blood Count 4.34 M/mcL (4.19-5.50); Red Cell Distribution Width 12.8 % (11.5-14.5); Segmented Neutrophils % 43.5 %; White Blood Count 3.3 K/mcL (4.3-11.1)
[2019-06-14] MEDS: Pantoprazole 40 MG VIAL IVP SCH ×2 (06:23→18:18)
[2019-06-14 06:34] LABS: BUN/Creatinine Ratio 11 (6-26); Blood Urea Nitrogen 7 mg/dL (6-20); Calcium 8.3 mg/dL (8.6-10.3); Carbon Dioxide 27 mEq/L (23-29); Chloride 104 mEq/L (98-107); Glucose 146 mg/dL (70-105); Osmolality,Calculated 287 (280-300); Potassium 3.7 mEq/L (3.5-5.1); Sodium 138 mEq/L (136-145); eGFR For African Americans > 60 (> 60); eGFR For Non-African Americans > 60 (> 60)
[2019-06-14] MEDS: Budesonide/Formoterol 160/4.5 1 PUFF INH IH SCH ×2 (07:51→20:52)
[2019-06-14] MEDS: Morphine Sulfate 2 MG/ML SYRINGE IVP PRN ×3 (10:11→22:57)
[2019-06-14] MEDS: *HR* Rivaroxaban 10 MG TABLET PO SCH (16:43)
[2019-06-14] MEDS: Gabapentin 400 MG CAPSULE PO SCH (21:55)
[2019-06-15 07:11] VITALS: BP 126/84
[2019-06-15] MEDS: Pantoprazole 40 MG VIAL IVP SCH (07:12)
[2019-06-15] MEDS: Insulin LISPRO 300 UNITS/3 ML VIAL SQ SCH ×2 (08:52→12:09)
[2019-06-15] MEDS ORDERED: Aspirin Enteric Coated 81 MG Tablet PO SCH (09:00)
[2019-06-15] MEDS: Gabapentin 400 MG CAPSULE PO SCH (09:28)
[2019-06-15] MEDS: Budesonide/Formoterol 160/4.5 1 PUFF INH IH SCH (10:30)
== END 2019-06-15 15:16 | disposition home or self-care (01) | DRG 390 ==
LOC: EMEROOARM 11:08 → 3ANU 11:08 → SUATTDRO 13:48 → 3ANU 14:38
PROVIDERS: ADMIT Internal Medicine; ATTEND Family Medicine

== ENCOUNTER 2019-06-29 19:43 | Observation (INO) ==
[2019-06-29] MEDS ORDERED: *HR* HYDROmorphone (PF) 1 MG/ML SYRINGE IVP STA (20:40)
[2019-06-29] MEDS ORDERED: Ondansetron 4 MG/2 ML VIAL IVP ONE (20:40)
[2019-06-29] MEDS ORDERED: 0.9 % Sodium Chloride 1,000 ML IVC ONE (20:40)
[2019-06-29 21:11] LABS: Basophils # 0.1 K/mcL (0.0-0.2); Basophils % 0.5 %; Eosinophils # 0.1 K/mcL (0.0-0.6); Eosinophils % 0.7 %; Hematocrit 41.2 % (37.5-50.1); Hemoglobin 12.9 g/dL (12.9-16.9); Immature Granulocytes % 0.3 % (0-4); Lymphocytes # 1.6 K/mcL (0.6-4.6); Lymphocytes % 14.1 %; Mean Corpuscular HGB Conc 31.3 g/dL (31.6-35.5); Mean Corpuscular Hemoglobin 28.4 pg (28.0-33.3); Mean Corpuscular Volume 90.5 fL (83.0-100.0); Mean Platelet Volume 11.6 fL (9.4-12.4); Monocytes % 8.8 %; Neutrophils # 8.7 K/mcL (1.6-8.9); Platelet Count 287 K/mcL (140-400); Red Blood Count 4.55 M/mcL (4.19-5.50); Red Cell Distribution Width 12.8 % (11.5-14.5); Segmented Neutrophils % 75.6 %; White Blood Count 11.5 K/mcL (4.3-11.1)
[2019-06-29 21:26] LABS: INR 1.6
[2019-06-29 21:32] LABS: Alanine Aminotransferase 47 Units/L (7-52); Albumin 4.1 g/dL (3.5-5.7); Albumin/Globulin Ratio 1.3 (1.1-2.2); Alkaline Phosphatase 91 Units/L (34-104); Aspartate Amino Transferase 32 Units/L (13-39); BUN/Creatinine Ratio 14 (6-26); Bilirubin,Direct 0.1 mg/dL (0.0-0.2); Bilirubin,Indirect 0.2 mg/dL (0.0-1.0); Bilirubin,Total 0.3 mg/dL (0.3-1.0); Blood Urea Nitrogen 9 mg/dL (6-20); Calcium 9.6 mg/dL (8.6-10.3); Carbon Dioxide 25 mEq/L (23-29); Chloride 101 mEq/L (98-107); Globulin 3.1 g/dL (2.4-3.5); Glucose 180 mg/dL (70-105); Lipase 29 Units/L (11-82); Osmolality,Calculated 287 (280-300); Potassium 3.9 mEq/L (3.5-5.1); Sodium 137 mEq/L (136-145); Total Protein 7.2 g/dL (6.4-8.9); eGFR For African Americans > 60 (> 60); eGFR For Non-African Americans > 60 (> 60)
[2019-06-29] MEDS ORDERED: Morphine Sulfate 2 MG/ML SYRINGE IVP ONE (22:13)
[2019-06-29] MEDS ORDERED: Naloxone 0.4 MG/ML INJ IVP PRN (23:36)
[2019-06-30 00:55] LABS: Basophils # 0.1 K/mcL (0.0-0.2); Basophils % 0.5 %; Eosinophils # 0.1 K/mcL (0.0-0.6); Eosinophils % 0.5 %; Hematocrit 38.2 % (37.5-50.1); Hemoglobin 12.4 g/dL (12.9-16.9); Immature Granulocytes % 0.3 % (0-4); Lymphocytes # 1.7 K/mcL (0.6-4.6); Lymphocytes % 15.3 %; Mean Corpuscular HGB Conc 32.5 g/dL (31.6-35.5); Mean Corpuscular Hemoglobin 28.2 pg (28.0-33.3); Mean Corpuscular Volume 86.8 fL (83.0-100.0); Mean Platelet Volume 11.3 fL (9.4-12.4); Monocytes % 8.7 %; Neutrophils # 8.2 K/mcL (1.6-8.9); Platelet Count 286 K/mcL (140-400); Red Cell Distribution Width 12.9 % (11.5-14.5); Segmented Neutrophils % 74.7 %
[2019-06-30 01:18] LABS: BUN/Creatinine Ratio 13 (6-26); Blood Urea Nitrogen 7 mg/dL (6-20); Calcium 9.1 mg/dL (8.6-10.3); Carbon Dioxide 26 mEq/L (23-29); Chloride 103 mEq/L (98-107); Glucose 91 mg/dL (70-105); Osmolality,Calculated 282 (280-300); Sodium 137 mEq/L (136-145); eGFR For African Americans > 60 (> 60); eGFR For Non-African Americans > 60 (> 60)
[2019-06-30] MEDS ORDERED: 0.9 % Sodium Chloride 1,000 ML IVC SCH (02:00)
[2019-06-30] MEDS: Morphine Sulfate 2 MG/ML SYRINGE IVP PRN ×5 (02:24→21:19)
[2019-06-30] MEDS: Ondansetron 4 MG/2 ML VIAL IVP PRN ×2 (05:26→21:50)
[2019-06-30 05:45] LABS: Bilirubin,Urine Negative (Negative); Blood,Urine Negative (Negative); Clarity,Urine Clear (Clear); Color,Urine Yellow (Yellow); Glucose,Urine (UA) Normal (Normal); Ketones,Urine Negative (Negative); Leukocyte Esterase,Urine Negative (Negative); Nitrite,Urine Negative (Negative); Protein,Urine Negative (Neg-Trace); Specific Gravity,Urine 1.022 (1.010-1.025); Urobilinogen,Urine Normal (Normal)
[2019-06-30] MEDS: Budesonide/Formoterol 160/4.5 1 PUFF INH IH SCH ×2 (07:49→20:17)
[2019-06-30] MEDS ORDERED: D5% in Water 1,000 ML IVC PRN (07:52)
[2019-06-30] MEDS ORDERED: *HR* Dextrose 50 % in Water (Syg) 50 ML SYRINGE IVP PRN (07:52)
[2019-06-30] MEDS ORDERED: Dextrose Gel 15 GM/37.5 ML TUBE PO PRN ×2 (07:52)
[2019-06-30] MEDS ORDERED: *HR* Labetalol 20 MG/4 ML SYRINGE IVP PRN (07:54)
[2019-06-30] MEDS ORDERED: D5% in Lactated Ringers 1,000 ML IVC SCH (08:00)
[2019-06-30] MEDS ORDERED: *HR* Heparin 5,000 UNIT/ML VIAL IVP PRN ×2 (10:46)
[2019-06-30] MEDS ORDERED: *HR* Heparin 5,000 UNIT/ML VIAL IVP ONE (10:46)
[2019-06-30 11:56] LABS: Hematocrit 43.1 % (37.5-50.1); Hemoglobin 13.5 g/dL (12.9-16.9); Mean Corpuscular HGB Conc 31.3 g/dL (31.6-35.5); Mean Corpuscular Hemoglobin 28.5 pg (28.0-33.3); Mean Corpuscular Volume 91.1 fL (83.0-100.0); Mean Platelet Volume 11.1 fL (9.4-12.4); Platelet Count 268 K/mcL (140-400); Red Blood Count 4.73 M/mcL (4.19-5.50); Red Cell Distribution Width 12.6 % (11.5-14.5); White Blood Count 10.3 K/mcL (4.3-11.1)
[2019-06-30] MEDS: Insulin LISPRO 300 UNITS/3 ML VIAL SQ SCH ×2 (11:56→17:47)
[2019-06-30 12:00] LABS: INR 1.2; Prothrombin Time 13.6 Seconds (9.4-12.1)
[2019-06-30] MEDS: Heparin 25,000 UNIT/250 ML D5W 25,000 UNIT/250 ML IV.SOLN IVC SCH (12:15)
[2019-06-30] MEDS ORDERED: Chloraseptic Spray 177 ML BOTTLE MM PRN (12:38)
[2019-06-30] MEDS: Pantoprazole 40 MG VIAL IVP SCH (15:08)
[2019-07-01] MEDS: Insulin LISPRO 300 UNITS/3 ML VIAL SQ SCH ×3 (00:59→12:46)
[2019-07-01] MEDS: Morphine Sulfate 2 MG/ML SYRINGE IVP PRN ×4 (02:27→20:14)
[2019-07-01 02:46] LABS: Basophils # 0.1 K/mcL (0.0-0.2); Basophils % 0.8 %; Eosinophils # 0.1 K/mcL (0.0-0.6); Eosinophils % 1.7 %; Hemoglobin 12.1 g/dL (12.9-16.9); Immature Granulocytes % 0.1 % (0-4); Lymphocytes # 1.9 K/mcL (0.6-4.6); Lymphocytes % 26.3 %; Mean Corpuscular HGB Conc 31.8 g/dL (31.6-35.5); Mean Corpuscular Hemoglobin 28.4 pg (28.0-33.3); Mean Corpuscular Volume 89.2 fL (83.0-100.0); Mean Platelet Volume 11.3 fL (9.4-12.4); Monocytes # 0.7 K/mcL (0.0-1.3); Monocytes % 9.3 %; Neutrophils # 4.4 K/mcL (1.6-8.9); Platelet Count 219 K/mcL (140-400); Red Blood Count 4.26 M/mcL (4.19-5.50); Red Cell Distribution Width 12.7 % (11.5-14.5); Segmented Neutrophils % 61.8 %; White Blood Count 7.1 K/mcL (4.3-11.1)
[2019-07-01 03:07] LABS: Magnesium 1.5 mg/dL (1.6-2.6)
[2019-07-01 03:08] LABS: BUN/Creatinine Ratio 13 (6-26); Blood Urea Nitrogen 8 mg/dL (6-20); Calcium 8.5 mg/dL (8.6-10.3); Carbon Dioxide 29 mEq/L (23-29); Chloride 101 mEq/L (98-107); Glucose 148 mg/dL (70-105); Osmolality,Calculated 287 (280-300); Potassium 3.5 mEq/L (3.5-5.1); Sodium 138 mEq/L (136-145); eGFR For African Americans > 60 (> 60); eGFR For Non-African Americans > 60 (> 60)
[2019-07-01] MEDS: Heparin 25,000 UNIT/250 ML D5W 25,000 UNIT/250 ML IV.SOLN IVC SCH (04:53)
[2019-07-01] MEDS: Budesonide/Formoterol 160/4.5 1 PUFF INH IH SCH ×2 (07:35→20:58)
[2019-07-01] MEDS ORDERED: D5% in Lactated Ringers 1,000 ML IVC SCH (07:45)
[2019-07-01] MEDS: Ondansetron 4 MG/2 ML VIAL IVP PRN (09:05)
[2019-07-01] MEDS: Pantoprazole 40 MG VIAL IVP SCH (09:06)
[2019-07-01] MEDS ORDERED: *HR* Rivaroxaban 10 MG TABLET PO SCH (17:00)
[2019-07-01] MEDS ORDERED: Insulin LISPRO 300 UNITS/3 ML VIAL SQ SCH (21:00)
[2019-07-01] MEDS ORDERED: NON-FORMULARY MEDICATION 1 EACH EACH (Omeprazole [Prilosec] 40 MG) PO SCH (21:00)
[2019-07-02 04:54] LABS: Basophils % 0.4 %; Eosinophils # 0.2 K/mcL (0.0-0.6); Eosinophils % 2.2 %; Hematocrit 37.9 % (37.5-50.1); Hemoglobin 12.1 g/dL (12.9-16.9); Immature Granulocytes % 0.1 % (0-4); Lymphocytes # 1.5 K/mcL (0.6-4.6); Lymphocytes % 21.9 %; Mean Corpuscular HGB Conc 31.9 g/dL (31.6-35.5); Mean Corpuscular Hemoglobin 28.5 pg (28.0-33.3); Mean Corpuscular Volume 89.4 fL (83.0-100.0); Mean Platelet Volume 11.3 fL (9.4-12.4); Monocytes # 0.9 K/mcL (0.0-1.3); Monocytes % 13.3 %; Neutrophils # 4.2 K/mcL (1.6-8.9); Platelet Count 239 K/mcL (140-400); Red Blood Count 4.24 M/mcL (4.19-5.50); Segmented Neutrophils % 62.1 %; White Blood Count 6.7 K/mcL (4.3-11.1)
[2019-07-02 05:11] LABS: BUN/Creatinine Ratio 8 (6-26); Blood Urea Nitrogen 5 mg/dL (6-20); Calcium 8.9 mg/dL (8.6-10.3); Carbon Dioxide 28 mEq/L (23-29); Chloride 104 mEq/L (98-107); Glucose 133 mg/dL (70-105); Magnesium 1.8 mg/dL (1.6-2.6); Osmolality,Calculated 287 (280-300); Phosphorous 3.6 mg/dL (2.7-4.5); Potassium 3.5 mEq/L (3.5-5.1); Sodium 139 mEq/L (136-145); eGFR For African Americans > 60 (> 60); eGFR For Non-African Americans > 60 (> 60)
[2019-07-02] MEDS: Insulin LISPRO 300 UNITS/3 ML VIAL SQ SCH ×2 (07:53→13:21)
[2019-07-02] MEDS: Budesonide/Formoterol 160/4.5 1 PUFF INH IH SCH (08:00)
[2019-07-02] MEDS ORDERED: Morphine Sulfate 2 MG/ML SYRINGE IVP PRN ×2 (08:05→08:06)
[2019-07-02] MEDS ORDERED: Aspirin Enteric Coated 81 MG Tablet PO SCH (09:00)
[2019-07-02] MEDS ORDERED: NON-FORMULARY MEDICATION 1 EACH EACH (Rivaroxaban [Xarelto] 20 MG) PO SCH (09:00)
[2019-07-02 11:11] VITALS: BP 152/82
== END 2019-07-02 16:29 | disposition home or self-care (01) ==
LOC: 3ANU 19:43 → EMEROOARM 19:43 → SUATTDRO 22:57 → 3ANU 23:25
PROVIDERS: ADMIT Internal Medicine; ATTEND Internal Medicine

== ENCOUNTER 2019-10-17 19:45 | Observation (INO) ==
[2019-10-17] MEDS ORDERED: Ondansetron 4 MG/2 ML VIAL IVP ONE (20:39)
[2019-10-17] MEDS ORDERED: 0.9 % Sodium Chloride 1,000 ML IVC ONE (20:39)
[2019-10-17] MEDS ORDERED: Morphine Sulfate 2 MG/ML SYRINGE IVP STA (20:39)
[2019-10-17] MEDS ORDERED: Isovue-370 500 ML BOTTLE IVP ONE (20:47)
[2019-10-17 21:34] LABS: Basophils % 0.2 %; Eosinophils % 0.2 %; Hematocrit 36.7 % (37.5-50.1); Hemoglobin 11.3 g/dL (12.9-16.9); Immature Granulocytes % 0.6 % (0-4); Lymphocytes # 1.2 K/mcL (0.6-4.6); Lymphocytes % 9.8 %; Mean Corpuscular HGB Conc 30.8 g/dL (31.6-35.5); Mean Corpuscular Hemoglobin 24.9 pg (28.0-33.3); Mean Platelet Volume 11.4 fL (9.4-12.4); Monocytes # 0.9 K/mcL (0.0-1.3); Monocytes % 7.6 %; Neutrophils # 9.8 K/mcL (1.6-8.9); Platelet Count 297 K/mcL (140-400); Red Blood Count 4.53 M/mcL (4.19-5.50); Red Cell Distribution Width 14.1 % (11.5-14.5); Segmented Neutrophils % 81.6 %; White Blood Count 12.1 K/mcL (4.3-11.1)
[2019-10-17 21:40] LABS: Bilirubin,Urine Negative (Negative); Blood,Urine Negative (Negative); Clarity,Urine Clear (Clear); Color,Urine Yellow (Yellow); Glucose,Urine (UA) Normal (Normal); Ketones,Urine Negative (Negative); Leukocyte Esterase,Urine Negative (Negative); Nitrite,Urine Negative (Negative); PH,Urine 5.5 pH Units (5.0-8.0); Protein,Urine 30 mg/dL (Neg-Trace); Specific Gravity,Urine 1.024 (1.010-1.025); Urobilinogen,Urine Normal (Normal)
[2019-10-17 21:46] LABS: Bacteria,Urine None Seen per hpf (None-Few); Hyaline Casts,Urine None Seen per lpf (None-Few); RBC,Urine 0-3 per hpf (0-3); Squamous Epithelial Cell,Urine Few per lpf (None-Few); WBC,Urine 0-3 per hpf (0-3)
[2019-10-17 21:53] LABS: Alanine Aminotransferase 49 Units/L (7-52); Albumin/Globulin Ratio 1.2 (1.1-2.2); Alkaline Phosphatase 96 Units/L (34-104); Amylase 16 Units/L (29-103); Aspartate Amino Transferase 34 Units/L (13-39); BUN/Creatinine Ratio 16 (6-26); Bilirubin,Direct 0.1 mg/dL (0.0-0.2); Bilirubin,Indirect 0.3 mg/dL (0.0-1.0); Bilirubin,Total 0.4 mg/dL (0.3-1.0); Blood Urea Nitrogen 12 mg/dL (8-23); Calcium 9.2 mg/dL (8.6-10.3); Carbon Dioxide 24 mEq/L (23-29); Chloride 101 mEq/L (98-107); Globulin 3.3 g/dL (2.4-3.5); Glucose 162 mg/dL (70-105); Lipase 19 Units/L (11-82); Osmolality,Calculated 283 (280-300); Potassium 3.9 mEq/L (3.5-5.1); Sodium 135 mEq/L (136-145); Total Protein 7.3 g/dL (6.4-8.9); eGFR For African Americans > 60 (> 60); eGFR For Non-African Americans > 60 (> 60)
[2019-10-17] MEDS ORDERED: *HR* FentaNYL (PF) 100 MCG/2 ML VIAL IVP ONE (23:21)
[2019-10-18] MEDS ORDERED: Naloxone 0.4 MG/ML INJ IVP PRN (03:09)
[2019-10-18] MEDS ORDERED: *HR* Dextrose 50 % in Water (Syg) 50 ML SYRINGE IVP PRN (03:36)
[2019-10-18] MEDS ORDERED: Dextrose Gel 15 GM/37.5 ML TUBE PO PRN ×2 (03:36)
[2019-10-18] MEDS ORDERED: D5% in Water 1,000 ML IVC PRN (03:36)
[2019-10-18] MEDS: Morphine Sulfate 2 MG/ML SYRINGE IVP PRN ×3 (03:44→17:29)
[2019-10-18] MEDS: *HR* Promethazine 25 MG/ML VIAL IVP PRN (03:45)
[2019-10-18] MEDS: 0.9 % Sodium Chloride 1,000 ML IVC SCH ×2 (03:45→12:49)
[2019-10-18] MEDS ORDERED: Insulin LISPRO 300 UNITS/3 ML VIAL SQ SCH (03:45)
[2019-10-18 03:46] LABS: Hematocrit 35.2 % (37.5-50.1); Hemoglobin 10.8 g/dL (12.9-16.9); Mean Corpuscular HGB Conc 30.7 g/dL (31.6-35.5); Mean Corpuscular Hemoglobin 25.2 pg (28.0-33.3); Mean Corpuscular Volume 82.2 fL (83.0-100.0); Platelet Count 277 K/mcL (140-400); Red Blood Count 4.28 M/mcL (4.19-5.50); Red Cell Distribution Width 14.2 % (11.5-14.5); White Blood Count 10.2 K/mcL (4.3-11.1)
[2019-10-18 03:47] LABS: INR 1.3; Prothrombin Time 14.7 Seconds (9.4-12.1)
[2019-10-18 04:01] LABS: BUN/Creatinine Ratio 16 (6-26); Blood Urea Nitrogen 10 mg/dL (8-23); Calcium 8.5 mg/dL (8.6-10.3); Carbon Dioxide 27 mEq/L (23-29); Chloride 103 mEq/L (98-107); Glucose 123 mg/dL (70-105); Magnesium 1.7 mg/dL (1.6-2.6); Osmolality,Calculated 280 (280-300); Phosphorous 3.4 mg/dL (2.7-4.5); Potassium 3.8 mEq/L (3.5-5.1); Sodium 135 mEq/L (136-145); eGFR For African Americans > 60 (> 60); eGFR For Non-African Americans > 60 (> 60)
[2019-10-18] MEDS: Insulin LISPRO 300 UNITS/3 ML VIAL SQ SCH ×5 (04:20→23:19)
[2019-10-18] MEDS: *HR* Heparin 5,000 UNIT/ML VIAL SQ SCH ×3 (06:24→21:06)
[2019-10-18] MEDS ORDERED: *HR* Metoprolol 5 MG/5 ML VIAL IVP PRN (07:43)
[2019-10-18] MEDS: Budesonide/Formoterol 160/4.5 1 PUFF INH IH SCH ×2 (09:40→20:16)
[2019-10-18 10:02] LABS: Estimated Average Glucose 200 mg/dl
[2019-10-19] MEDS: Pantoprazole 40 MG VIAL IVP SCH (03:36)
[2019-10-19] MEDS: *HR* Promethazine 25 MG/ML VIAL IVP PRN ×2 (03:36→10:44)
[2019-10-19 04:40] LABS: Basophils % 0.4 %; Eosinophils # 0.2 K/mcL (0.0-0.6); Eosinophils % 2.1 %; Hematocrit 37.2 % (37.5-50.1); Hemoglobin 11.1 g/dL (12.9-16.9); Immature Granulocytes % 0.5 % (0-4); Lymphocytes # 1.3 K/mcL (0.6-4.6); Mean Corpuscular HGB Conc 29.8 g/dL (31.6-35.5); Mean Corpuscular Hemoglobin 24.7 pg (28.0-33.3); Mean Corpuscular Volume 82.9 fL (83.0-100.0); Mean Platelet Volume 11.3 fL (9.4-12.4); Monocytes # 0.7 K/mcL (0.0-1.3); Monocytes % 8.9 %; Neutrophils # 5.2 K/mcL (1.6-8.9); Platelet Count 269 K/mcL (140-400); Red Blood Count 4.49 M/mcL (4.19-5.50); Red Cell Distribution Width 14.2 % (11.5-14.5); Segmented Neutrophils % 70.1 %; White Blood Count 7.5 K/mcL (4.3-11.1)
[2019-10-19 04:55] LABS: % Iron Saturation 5 % (20-55); BUN/Creatinine Ratio 16 (6-26); Blood Urea Nitrogen 10 mg/dL (8-23); Calcium 8.6 mg/dL (8.6-10.3); Carbon Dioxide 27 mEq/L (23-29); Chloride 102 mEq/L (98-107); Glucose 100 mg/dL (70-105); Iron 23 mcg/dL (65-175); Osmolality,Calculated 289 (280-300); Potassium 3.7 mEq/L (3.5-5.1); Sodium 140 mEq/L (136-145); Transferrin 322 mg/dL (203-362); eGFR For African Americans > 60 (> 60); eGFR For Non-African Americans > 60 (> 60)
[2019-10-19] MEDS: *HR* Heparin 5,000 UNIT/ML VIAL SQ SCH ×3 (05:17→20:31)
[2019-10-19] MEDS: Insulin LISPRO 300 UNITS/3 ML VIAL SQ SCH ×3 (05:49→17:18)
[2019-10-19] MEDS: Budesonide/Formoterol 160/4.5 1 PUFF INH IH SCH ×2 (08:03→19:48)
[2019-10-19] MEDS: 0.9 % Sodium Chloride 1,000 ML IVC SCH ×2 (09:07→20:32)
[2019-10-19] MEDS: *HR* Metoprolol 5 MG/5 ML VIAL IVP PRN ×2 (10:57→17:18)
[2019-10-19] MEDS: Morphine Sulfate 2 MG/ML SYRINGE IVP PRN ×2 (13:11→19:30)
[2019-10-19] MEDS ORDERED: Insulin LISPRO 300 UNITS/3 ML VIAL SQ SCH (21:00)
[2019-10-20 01:24] LABS: Basophils % 0.6 %; Eosinophils # 0.1 K/mcL (0.0-0.6); Eosinophils % 1.8 %; Hematocrit 36.1 % (37.5-50.1); Hemoglobin 11.1 g/dL (12.9-16.9); Immature Granulocytes % 0.4 % (0-4); Lymphocytes # 1.5 K/mcL (0.6-4.6); Lymphocytes % 21.8 %; Mean Corpuscular HGB Conc 30.7 g/dL (31.6-35.5); Mean Corpuscular Hemoglobin 25.3 pg (28.0-33.3); Mean Corpuscular Volume 82.4 fL (83.0-100.0); Mean Platelet Volume 11.9 fL (9.4-12.4); Monocytes # 0.8 K/mcL (0.0-1.3); Monocytes % 10.7 %; Neutrophils # 4.6 K/mcL (1.6-8.9); Platelet Count 280 K/mcL (140-400); Red Blood Count 4.38 M/mcL (4.19-5.50); Red Cell Distribution Width 14.3 % (11.5-14.5); Segmented Neutrophils % 64.7 %; White Blood Count 7.1 K/mcL (4.3-11.1)
[2019-10-20 01:43] LABS: BUN/Creatinine Ratio 13 (6-26); Blood Urea Nitrogen 8 mg/dL (8-23); Calcium 8.5 mg/dL (8.6-10.3); Carbon Dioxide 26 mEq/L (23-29); Chloride 105 mEq/L (98-107); Glucose 107 mg/dL (70-105); Osmolality,Calculated 283 (280-300); Potassium 3.5 mEq/L (3.5-5.1); Sodium 137 mEq/L (136-145); eGFR For African Americans > 60 (> 60); eGFR For Non-African Americans > 60 (> 60)
[2019-10-20] MEDS: *HR* Heparin 5,000 UNIT/ML VIAL SQ SCH ×2 (05:11→14:31)
[2019-10-20] MEDS: 0.9 % Sodium Chloride 1,000 ML IVC SCH (05:11)
[2019-10-20] MEDS: Budesonide/Formoterol 160/4.5 1 PUFF INH IH SCH (07:42)
[2019-10-20] MEDS ORDERED: Multivit/Ca/Min/Fe/FA 1 TAB TABLET PO SCH (09:00)
[2019-10-20] MEDS ORDERED: Aspirin Enteric Coated 81 MG Tablet PO SCH (09:00)
[2019-10-20] MEDS ORDERED: Isosorbide MONOnitrate (24 HR) 60 MG TAB.ER.24H PO SCH (09:00)
[2019-10-20] MEDS ORDERED: Gabapentin 400 MG CAPSULE PO SCH (09:00)
[2019-10-20] MEDS: Pantoprazole 40 MG VIAL IVP SCH (09:29)
[2019-10-20] MEDS: Insulin LISPRO 300 UNITS/3 ML VIAL SQ SCH ×2 (09:29→11:08)
[2019-10-20 09:56] VITALS: BP 157/76
== END 2019-10-20 16:08 | disposition home or self-care (01) ==
LOC: EMEROOARM 19:45 → 3ANU 19:45 → SUATTDRO 10-18 02:27 → 3ANU 10-18 03:01
PROVIDERS: ADMIT Internal Medicine; ATTEND Pharmacist

== ENCOUNTER 2019-11-05 14:11 | Inpatient (IN) ==
[2019-11-05] MEDS ORDERED: Ondansetron 4 MG/2 ML VIAL IVP ONE ×2 (15:08→18:19)
[2019-11-05] MEDS ORDERED: Morphine Sulfate 2 MG/ML SYRINGE IVP ONE ×2 (15:08→16:36)
[2019-11-05] MEDS ORDERED: Isovue-370 500 ML BOTTLE IVP ONE (15:27)
[2019-11-05] MEDS ORDERED: Isovue-370 500 ML BOTTLE PO ONE (15:40)
[2019-11-05 15:52] LABS: Basophils % 0.4 %; Eosinophils % 0.4 %; Hematocrit 36.9 % (37.5-50.1); Hemoglobin 11.3 g/dL (12.9-16.9); Immature Granulocytes % 0.3 % (0-4); Lymphocytes # 1.2 K/mcL (0.6-4.6); Lymphocytes % 11.2 %; Mean Corpuscular HGB Conc 30.6 g/dL (31.6-35.5); Mean Corpuscular Hemoglobin 24.8 pg (28.0-33.3); Mean Corpuscular Volume 81.1 fL (83.0-100.0); Mean Platelet Volume 11.3 fL (9.4-12.4); Monocytes # 1.1 K/mcL (0.0-1.3); Monocytes % 10.1 %; Neutrophils # 8.5 K/mcL (1.6-8.9); Platelet Count 319 K/mcL (140-400); Red Blood Count 4.55 M/mcL (4.19-5.50); Red Cell Distribution Width 14.4 % (11.5-14.5); Segmented Neutrophils % 77.6 %; White Blood Count 10.9 K/mcL (4.3-11.1)
[2019-11-05 15:57] LABS: INR 1.8
[2019-11-05 15:59] LABS: Activated Partial Thrombo Time 38.8 Seconds (26.0-36.0)
[2019-11-05 16:11] LABS: Alanine Aminotransferase 60 Units/L (7-52); Albumin 3.9 g/dL (3.5-5.7); Albumin/Globulin Ratio 1.2 (1.1-2.2); Alkaline Phosphatase 109 Units/L (34-104); Aspartate Amino Transferase 37 Units/L (13-39); BUN/Creatinine Ratio 15 (6-26); Bilirubin,Direct 0.1 mg/dL (0.0-0.2); Bilirubin,Indirect 0.2 mg/dL (0.0-1.0); Bilirubin,Total 0.3 mg/dL (0.3-1.0); Blood Urea Nitrogen 9 mg/dL (8-23); Calcium 9.1 mg/dL (8.6-10.3); Carbon Dioxide 27 mEq/L (23-29); Chloride 101 mEq/L (98-107); Globulin 3.2 g/dL (2.4-3.5); Glucose 125 mg/dL (70-105); Lipase 40 Units/L (11-82); Osmolality,Calculated 282 (280-300); Potassium 4.1 mEq/L (3.5-5.1); Sodium 136 mEq/L (136-145); Total Protein 7.1 g/dL (6.4-8.9); eGFR For African Americans > 60 (> 60); eGFR For Non-African Americans > 60 (> 60)
[2019-11-05] MEDS ORDERED: 0.9 % Sodium Chloride 1,000 ML IVC ONE (16:24)
[2019-11-05 16:31] LABS: Bilirubin,Urine Negative (Negative); Blood,Urine Negative (Negative); Clarity,Urine Clear (Clear); Color,Urine Yellow (Yellow); Glucose,Urine (UA) 30 mg/dL (Normal); Ketones,Urine Negative (Negative); Leukocyte Esterase,Urine Negative (Negative); Nitrite,Urine Negative (Negative); Protein,Urine Trace mg/dL (Neg-Trace); Specific Gravity,Urine > 1.030 (1.010-1.025); Urobilinogen,Urine Normal (Normal)
[2019-11-05] MEDS ORDERED: Naloxone 0.4 MG/ML INJ IVP PRN (20:02)
[2019-11-05] MEDS ORDERED: *HR* HYDROmorphone (PF) 1 MG/ML SYRINGE IVP ONE (20:03)
[2019-11-05] MEDS ORDERED: *HR* LORazepam 2 MG/ML VIAL IVP ONE (20:59)
[2019-11-05] MEDS ORDERED: Dextrose Gel 15 GM/37.5 ML TUBE PO PRN ×2 (21:27)
[2019-11-05] MEDS ORDERED: *HR* Dextrose 50 % in Water (Vial) 50 ML VIAL IVP PRN (21:27)
[2019-11-05] MEDS ORDERED: D5% in Water 1,000 ML IVC PRN (21:27)
[2019-11-05] MEDS ORDERED: 0.9 % Sodium Chloride 1,000 ML IVC SCH (21:45)
[2019-11-05] MEDS ORDERED: *HR* Heparin 5,000 UNIT/ML VIAL SQ SCH (22:00)
[2019-11-05] MEDS: Budesonide/Formoterol 160/4.5 1 PUFF INH IH SCH (22:03)
[2019-11-06] MEDS: Insulin LISPRO 300 UNITS/3 ML VIAL SQ SCH ×4 (00:48→17:37)
[2019-11-06 02:47] LABS: Basophils % 0.2 %; Eosinophils % 0.1 %; Hematocrit 36.2 % (37.5-50.1); Hemoglobin 11.2 g/dL (12.9-16.9); Immature Granulocytes % 0.4 % (0-4); Lymphocytes # 1.1 K/mcL (0.6-4.6); Lymphocytes % 7.4 %; Mean Corpuscular HGB Conc 30.9 g/dL (31.6-35.5); Mean Corpuscular Hemoglobin 24.8 pg (28.0-33.3); Mean Corpuscular Volume 80.1 fL (83.0-100.0); Mean Platelet Volume 11.5 fL (9.4-12.4); Monocytes # 1.2 K/mcL (0.0-1.3); Monocytes % 8.5 %; Neutrophils # 12.1 K/mcL (1.6-8.9); Platelet Count 294 K/mcL (140-400); Red Blood Count 4.52 M/mcL (4.19-5.50); Red Cell Distribution Width 14.5 % (11.5-14.5); Segmented Neutrophils % 83.4 %; White Blood Count 14.5 K/mcL (4.3-11.1)
[2019-11-06] MEDS ORDERED: Morphine Sulfate 2 MG/ML SYRINGE IVP ONE ×2 (02:51→06:29)
[2019-11-06 03:06] LABS: BUN/Creatinine Ratio 16 (6-26); Blood Urea Nitrogen 9 mg/dL (8-23); Calcium 8.6 mg/dL (8.6-10.3); Carbon Dioxide 26 mEq/L (23-29); Chloride 100 mEq/L (98-107); Glucose 127 mg/dL (70-105); Osmolality,Calculated 280 (280-300); Sodium 135 mEq/L (136-145); eGFR For African Americans > 60 (> 60); eGFR For Non-African Americans > 60 (> 60)
[2019-11-06] MEDS ORDERED: Ondansetron 4 MG/2 ML VIAL IVP PRN (04:44)
[2019-11-06] MEDS: Budesonide/Formoterol 160/4.5 1 PUFF INH IH SCH ×2 (07:23→19:47)
[2019-11-06] MEDS ORDERED: *HR* Rivaroxaban 10 MG TABLET PO SCH (09:00)
[2019-11-06] MEDS: *HR* Heparin 5,000 UNIT/ML VIAL SQ SCH ×2 (11:49→17:37)
[2019-11-06] MEDS: *HR* Metoprolol 5 MG/5 ML VIAL IVP SCH ×2 (11:49→17:52)
[2019-11-06] MEDS: Pantoprazole 40 MG VIAL IVP SCH (14:33)
[2019-11-06] MEDS ORDERED: Chloraseptic Spray 177 ML BOTTLE MM PRN (14:35)
[2019-11-07] MEDS: *HR* Metoprolol 5 MG/5 ML VIAL IVP SCH ×5 (00:25→23:34)
[2019-11-07] MEDS: Insulin LISPRO 300 UNITS/3 ML VIAL SQ SCH ×5 (00:27→23:33)
[2019-11-07 01:33] LABS: Basophils # 0.1 K/mcL (0.0-0.2); Basophils % 0.7 %; Eosinophils # 0.2 K/mcL (0.0-0.6); Eosinophils % 2.5 %; Hematocrit 36.2 % (37.5-50.1); Immature Granulocytes % 0.3 % (0-4); Lymphocytes # 1.6 K/mcL (0.6-4.6); Lymphocytes % 22.9 %; Mean Corpuscular HGB Conc 30.4 g/dL (31.6-35.5); Mean Corpuscular Hemoglobin 24.6 pg (28.0-33.3); Mean Corpuscular Volume 80.8 fL (83.0-100.0); Mean Platelet Volume 11.3 fL (9.4-12.4); Monocytes # 0.8 K/mcL (0.0-1.3); Monocytes % 10.6 %; Platelet Count 283 K/mcL (140-400); Red Blood Count 4.48 M/mcL (4.19-5.50); Red Cell Distribution Width 14.7 % (11.5-14.5)
[2019-11-07 01:35] LABS: Neutrophils # 4.5 K/mcL (1.6-8.9); White Blood Count 7.1 K/mcL (4.3-11.1)
[2019-11-07 01:54] LABS: BUN/Creatinine Ratio 15 (6-26); Blood Urea Nitrogen 11 mg/dL (8-23); Calcium 8.5 mg/dL (8.6-10.3); Carbon Dioxide 29 mEq/L (23-29); Chloride 100 mEq/L (98-107); Glucose 100 mg/dL (70-105); Osmolality,Calculated 281 (280-300); Potassium 3.8 mEq/L (3.5-5.1); Sodium 136 mEq/L (136-145); eGFR For African Americans > 60 (> 60); eGFR For Non-African Americans > 60 (> 60)
[2019-11-07] MEDS: *HR* Heparin 5,000 UNIT/ML VIAL SQ SCH ×2 (05:30→17:42)
[2019-11-07] MEDS: Budesonide/Formoterol 160/4.5 1 PUFF INH IH SCH ×2 (07:17→20:15)
[2019-11-07] MEDS: Pantoprazole 40 MG VIAL IVP SCH (08:36)
[2019-11-07] MEDS: 0.9 % Sodium Chloride 1,000 ML IVC SCH ×2 (08:37→20:07)
[2019-11-07] MEDS ORDERED: Melatonin 3 MG TABLET PO ONE (20:21)
[2019-11-08 01:20] LABS: Basophils % 0.5 %; Eosinophils # 0.1 K/mcL (0.0-0.6); Eosinophils % 1.9 %; Hematocrit 34.2 % (37.5-50.1); Hemoglobin 10.6 g/dL (12.9-16.9); Immature Granulocytes % 0.3 % (0-4); Lymphocytes # 1.5 K/mcL (0.6-4.6); Lymphocytes % 22.7 %; Mean Corpuscular Hemoglobin 24.9 pg (28.0-33.3); Mean Corpuscular Volume 80.3 fL (83.0-100.0); Monocytes # 0.7 K/mcL (0.0-1.3); Monocytes % 10.3 %; Neutrophils # 4.1 K/mcL (1.6-8.9); Platelet Count 272 K/mcL (140-400); Red Blood Count 4.26 M/mcL (4.19-5.50); Red Cell Distribution Width 14.6 % (11.5-14.5); Segmented Neutrophils % 64.3 %; White Blood Count 6.4 K/mcL (4.3-11.1)
[2019-11-08 01:42] LABS: BUN/Creatinine Ratio 12 (6-26); Blood Urea Nitrogen 8 mg/dL (8-23); Calcium 8.4 mg/dL (8.6-10.3); Carbon Dioxide 27 mEq/L (23-29); Chloride 102 mEq/L (98-107); Glucose 107 mg/dL (70-105); Osmolality,Calculated 283 (280-300); Potassium 3.5 mEq/L (3.5-5.1); Sodium 137 mEq/L (136-145); eGFR For African Americans > 60 (> 60); eGFR For Non-African Americans > 60 (> 60)
[2019-11-08] MEDS: *HR* Metoprolol 5 MG/5 ML VIAL IVP SCH (05:16)
[2019-11-08] MEDS: *HR* Heparin 5,000 UNIT/ML VIAL SQ SCH (05:17)
[2019-11-08] MEDS: 0.9 % Sodium Chloride 1,000 ML IVC SCH (05:20)
[2019-11-08] MEDS: Insulin LISPRO 300 UNITS/3 ML VIAL SQ SCH (05:50)
[2019-11-08] MEDS: Budesonide/Formoterol 160/4.5 1 PUFF INH IH SCH (07:36)
[2019-11-08 07:40] VITALS: BP 150/84
[2019-11-08] MEDS: Pantoprazole 40 MG VIAL IVP SCH (07:48)
== END 2019-11-08 11:56 | disposition home or self-care (01) | DRG 389 ==
LOC: EMEROOARM 14:11 → 3ANU 14:11 → SUATTDRO 20:12 → 3ANU 20:37
PROVIDERS: ADMIT Internal Medicine; ATTEND Internal Medicine

== ENCOUNTER 2020-03-18 06:04 | Inpatient (IN) ==
[2020-03-18] MEDS ORDERED: 0.9 % Sodium Chloride 1,000 ML IVC ONE (06:28)
[2020-03-18] MEDS ORDERED: Ondansetron 4 MG/2 ML VIAL IVP ONE ×3 (06:28→10:28)
[2020-03-18] MEDS ORDERED: Morphine Sulfate 2 MG/ML SYRINGE IVP ONE ×4 (06:51→12:33)
[2020-03-18 07:12] LABS: Basophils % 0.3 %; Eosinophils % 0.1 %; Hematocrit 36.3 % (37.5-50.1); Hemoglobin 10.8 g/dL (12.9-16.9); Immature Granulocytes % 0.5 % (0-4); Lymphocytes # 0.7 K/mcL (0.6-4.6); Lymphocytes % 5.1 %; Mean Corpuscular HGB Conc 29.8 g/dL (31.6-35.5); Mean Corpuscular Hemoglobin 23.1 pg (28.0-33.3); Mean Corpuscular Volume 77.7 fL (83.0-100.0); Mean Platelet Volume 11.1 fL (9.4-12.4); Monocytes # 0.9 K/mcL (0.0-1.3); Monocytes % 6.3 %; Neutrophils # 12.3 K/mcL (1.6-8.9); Platelet Count 313 K/mcL (140-400); Red Blood Count 4.67 M/mcL (4.19-5.50); Red Cell Distribution Width 15.6 % (11.5-14.5); Segmented Neutrophils % 87.7 %
[2020-03-18 07:14] LABS: INR 1.3; Prothrombin Time 14.7 Seconds (9.4-12.1)
[2020-03-18 07:16] LABS: Activated Partial Thrombo Time 27.7 Seconds (26.0-36.0)
[2020-03-18 07:24] LABS: Alanine Aminotransferase 40 Units/L (7-52); Albumin 4.1 g/dL (3.5-5.7); Albumin/Globulin Ratio 1.3 (1.1-2.2); Alkaline Phosphatase 97 Units/L (34-104); Aspartate Amino Transferase 32 Units/L (13-39); BUN/Creatinine Ratio 15 (6-26); Bilirubin,Indirect 0.3 mg/dL (0.0-1.0); Bilirubin,Total 0.3 mg/dL (0.3-1.0); Blood Urea Nitrogen 9 mg/dL (8-23); Calcium 9.5 mg/dL (8.6-10.3); Carbon Dioxide 26 mEq/L (23-29); Chloride 102 mEq/L (98-107); Globulin 3.1 g/dL (2.4-3.5); Glucose 201 mg/dL (70-105); Lipase 18 Units/L (11-82); Osmolality,Calculated 288 (280-300); Potassium 3.8 mEq/L (3.5-5.1); Sodium 137 mEq/L (136-145); Total Protein 7.2 g/dL (6.4-8.9); Troponin I < 0.03 ng/mL (< 0.04); eGFR For African Americans > 60 (> 60); eGFR For Non-African Americans > 60 (> 60)
[2020-03-18] MEDS ORDERED: Isovue-370 500 ML BOTTLE IVP ONE (07:39)
[2020-03-18 08:48] LABS: Bilirubin,Urine Negative (Negative); Blood,Urine Moderate (Negative); Clarity,Urine Clear (Clear); Color,Urine Light-Yellow (Yellow); Glucose,Urine (UA) 300 mg/dL (Normal); Hyaline Casts,Urine Many per lpf (None Seen); Ketones,Urine Negative (Negative); Leukocyte Esterase,Urine Negative (Negative); Mucus,Urine Few per lpf (None-Few); Nitrite,Urine Negative (Negative); Protein,Urine Negative (Neg-Trace); RBC,Urine 0-3 per hpf (0-3); Specific Gravity,Urine 1.023 (1.010-1.025); Urobilinogen,Urine Normal (Normal); WBC,Urine 0-3 per hpf (0-3)
[2020-03-18] MEDS ORDERED: Metoclopramide 10 MG/2 ML VIAL IVP ONE (12:33)
[2020-03-18] MEDS ORDERED: Chloraseptic Spray 177 ML BOTTLE MM PRN (13:22)
[2020-03-18] MEDS ORDERED: Naloxone 0.4 MG/ML INJ IVP PRN (13:24)
[2020-03-18] MEDS ORDERED: D5% in Water 1,000 ML IVC PRN (13:29)
[2020-03-18] MEDS ORDERED: Dextrose Gel 15 GM/37.5 ML TUBE PO PRN ×2 (13:29)
[2020-03-18] MEDS ORDERED: *HR* Dextrose 50 % in Water (Vial) 50 ML VIAL IVP PRN (13:29)
[2020-03-18] MEDS ORDERED: *HR* HYDROmorphone (PF) 1 MG/ML SYRINGE IVP ONE (14:07)
[2020-03-18] MEDS ORDERED: *HR* Heparin 5,000 UNIT/ML VIAL IVP ONE (14:22)
[2020-03-18] MEDS ORDERED: *HR* Heparin 5,000 UNIT/ML VIAL IVP PRN ×4 (14:22→16:31)
[2020-03-18] MEDS ORDERED: Heparin 25,000UNIT/250ML 1/2NS 25,000 UNIT/250 ML IV.SOLN IVC SCH (14:30)
[2020-03-18] MEDS: 0.9 % Sodium Chloride 1,000 ML IVC SCH (14:33)
[2020-03-18] MEDS ORDERED: Famotidine 20 MG/2 ML VIAL IVP ONE ×2 (14:35→17:00)
[2020-03-18] MEDS ORDERED: Prochlorperazine 10 MG/2 ML VIAL IVP PRN (15:14)
[2020-03-18 15:30] LABS: Activated Partial Thrombo Time 27.1 Seconds (26.0-36.0); Heparin anti-factor XA UFH < 0.04 IU/mL (0.30-0.70)
[2020-03-18] MEDS: Heparin 25,000UNIT/250ML 1/2NS 25,000 UNIT/250 ML IV.SOLN IVC SCH (18:04)
[2020-03-18] MEDS: Insulin LISPRO 300 UNITS/3 ML VIAL SQ SCH (18:13)
[2020-03-18] MEDS: *HR* HYDROmorphone (PF) 1 MG/ML SYRINGE IVP PRN (18:46)
[2020-03-18] MEDS ORDERED: *HR* HYDROmorphone PF 0.5 MG/0.5 ML SYRINGE IVP ONE (21:38)
[2020-03-19] MEDS ORDERED: *HR* FentaNYL PATCH 12 MCG PATCH TD SCH (00:53)
[2020-03-19] MEDS: Ondansetron 4 MG/2 ML VIAL IVP SCH ×4 (01:10→17:46)
[2020-03-19] MEDS: Insulin LISPRO 300 UNITS/3 ML VIAL SQ SCH ×5 (01:24→23:53)
[2020-03-19] MEDS: *HR* HYDROmorphone (PF) 1 MG/ML SYRINGE IVP PRN (03:39)
[2020-03-19] MEDS: 0.9 % Sodium Chloride 1,000 ML IVC SCH (03:49)
[2020-03-19 08:20] LABS: Hematocrit 38.9 % (37.5-50.1); Hemoglobin 11.6 g/dL (12.9-16.9); Mean Corpuscular HGB Conc 29.8 g/dL (31.6-35.5); Mean Corpuscular Hemoglobin 22.9 pg (28.0-33.3); Mean Corpuscular Volume 76.7 fL (83.0-100.0); Mean Platelet Volume 11.8 fL (9.4-12.4); Platelet Count 362 K/mcL (140-400); Red Blood Count 5.07 M/mcL (4.19-5.50); Red Cell Distribution Width 15.8 % (11.5-14.5); White Blood Count 13.4 K/mcL (4.3-11.1)
[2020-03-19 08:51] LABS: BUN/Creatinine Ratio 21 (6-26); Blood Urea Nitrogen 14 mg/dL (8-23); Calcium 8.9 mg/dL (8.6-10.3); Carbon Dioxide 27 mEq/L (23-29); Chloride 100 mEq/L (98-107); Chol/HDL Ratio 4.1 (0-4.9); Cholesterol 136 mg/dL (< 200); Glucose 176 mg/dL (70-105); HDL Cholesterol 33 mg/dL (40-59); LDL Cholesterol,Calculated 80 mg/dL (< 100); Magnesium 1.6 mg/dL (1.6-2.6); Osmolality,Calculated 291 (280-300); Potassium 3.4 mEq/L (3.5-5.1); Sodium 138 mEq/L (136-145); Triglycerides 114 mg/dL (< 150); eGFR For African Americans > 60 (> 60); eGFR For Non-African Americans > 60 (> 60)
[2020-03-19] MEDS: Heparin 25,000UNIT/250ML 1/2NS 25,000 UNIT/250 ML IV.SOLN IVC SCH (12:47)
[2020-03-19] MEDS: *HR* Metoprolol 5 MG/5 ML VIAL IVP SCH ×2 (13:28→17:45)
[2020-03-19] MEDS: Pantoprazole 40 MG VIAL IVP SCH (13:29)
[2020-03-19] MEDS: *HR* HYDROmorphone PF 0.5 MG/0.5 ML SYRINGE IVP PRN (15:57)
[2020-03-19] MEDS: Budesonide/Formoterol 160/4.5 1 PUFF INH IH SCH ×2 (19:43→19:45)
[2020-03-19] MEDS: 0.9 % Sodium Chloride w KCl 20 MEQ/1,000 ML MLS IVC SCH (21:58)
[2020-03-20] MEDS: *HR* Metoprolol 5 MG/5 ML VIAL IVP SCH ×5 (00:19→23:59)
[2020-03-20] MEDS: Ondansetron 4 MG/2 ML VIAL IVP SCH ×4 (00:19→18:03)
[2020-03-20] MEDS: Heparin 25,000UNIT/250ML 1/2NS 25,000 UNIT/250 ML IV.SOLN IVC SCH ×2 (05:20→19:55)
[2020-03-20] MEDS: Insulin LISPRO 300 UNITS/3 ML VIAL SQ SCH ×4 (06:16→23:58)
[2020-03-20 07:12] LABS: Hematocrit 32.6 % (37.5-50.1); Mean Corpuscular HGB Conc 30.1 g/dL (31.6-35.5); Mean Corpuscular Hemoglobin 23.7 pg (28.0-33.3); Mean Corpuscular Volume 78.9 fL (83.0-100.0); Mean Platelet Volume 11.3 fL (9.4-12.4); Platelet Count 268 K/mcL (140-400); Red Blood Count 4.13 M/mcL (4.19-5.50); Red Cell Distribution Width 15.8 % (11.5-14.5)
[2020-03-20 07:24] LABS: BUN/Creatinine Ratio 20 (6-26); Blood Urea Nitrogen 13 mg/dL (8-23); Calcium 8.3 mg/dL (8.6-10.3); Carbon Dioxide 27 mEq/L (23-29); Chloride 108 mEq/L (98-107); Glucose 133 mg/dL (70-105); Osmolality,Calculated 294 (280-300); Potassium 3.8 mEq/L (3.5-5.1); Sodium 141 mEq/L (136-145); eGFR For African Americans > 60 (> 60); eGFR For Non-African Americans > 60 (> 60)
[2020-03-20 07:39] LABS: Hemoglobin 9.8 g/dL (12.9-16.9); White Blood Count 6.7 K/mcL (4.3-11.1)
[2020-03-20] MEDS: Pantoprazole 40 MG VIAL IVP SCH (07:54)
[2020-03-20] MEDS: Fluticasone Propionate Nasal 50 MCG/SPRAY BOTTLE NS SCH (07:55)
[2020-03-20] MEDS: *HR* HYDROmorphone PF 0.5 MG/0.5 ML SYRINGE IVP PRN (10:16)
[2020-03-20] MEDS: 0.9 % Sodium Chloride w KCl 20 MEQ/1,000 ML MLS IVC SCH (11:19)
[2020-03-20] MEDS ORDERED: Ondansetron 4 MG/2 ML VIAL IVP PRN (18:06)
[2020-03-20] MEDS: Budesonide/Formoterol 160/4.5 1 PUFF INH IH SCH (21:23)
[2020-03-21] MEDS: 0.9 % Sodium Chloride w KCl 20 MEQ/1,000 ML MLS IVC SCH (00:47)
[2020-03-21] MEDS: *HR* Metoprolol 5 MG/5 ML VIAL IVP SCH (05:51)
[2020-03-21] MEDS: Insulin LISPRO 300 UNITS/3 ML VIAL SQ SCH ×2 (05:59→12:20)
[2020-03-21] MEDS: Budesonide/Formoterol 160/4.5 1 PUFF INH IH SCH (08:04)
[2020-03-21 08:22] LABS: BUN/Creatinine Ratio 13 (6-26); Blood Urea Nitrogen 8 mg/dL (8-23); Calcium 8.5 mg/dL (8.6-10.3); Carbon Dioxide 24 mEq/L (23-29); Chloride 106 mEq/L (98-107); Glucose 125 mg/dL (70-105); Osmolality,Calculated 282 (280-300); Potassium 4.1 mEq/L (3.5-5.1); Sodium 136 mEq/L (136-145); eGFR For African Americans > 60 (> 60); eGFR For Non-African Americans > 60 (> 60)
[2020-03-21] MEDS: Pantoprazole 40 MG VIAL IVP SCH (08:41)
[2020-03-21] MEDS: Fluticasone Propionate Nasal 50 MCG/SPRAY BOTTLE NS SCH (08:42)
[2020-03-21] MEDS: Heparin 25,000UNIT/250ML 1/2NS 25,000 UNIT/250 ML IV.SOLN IVC SCH (11:21)
[2020-03-21 11:37] VITALS: BP 144/80
== END 2020-03-21 13:29 | disposition home or self-care (01) | DRG 389 ==
LOC: EMEROOARM 06:04 → 3ANU 06:04 → SUATTDRO 12:56 → 3ANU 12:58
PROVIDERS: ADMIT Family Medicine; ATTEND Internal Medicine

== ENCOUNTER 2020-04-24 20:56 | Inpatient (IN) ==
[2020-04-24] MEDS ORDERED: Naloxone 0.4 MG/ML INJ IVP PRN (23:25)
[2020-04-24] MEDS ORDERED: Ondansetron 4 MG/2 ML VIAL IVP PRN (23:25)
[2020-04-24] MEDS ORDERED: Acetaminophen 325 MG TABLET PO PRN (23:25)
[2020-04-24] MEDS ORDERED: 0.9 % Sodium Chloride 1,000 ML IVC SCH (23:30)
[2020-04-24] MEDS ORDERED: *HR* LORazepam 1 MG TABLET PO ONE (23:32)
[2020-04-24] MEDS ORDERED: Perflutren Lipid Microsphere 1.3 ML in 0.9 % Sodium Chloride 8.7 ML IVP PRN (23:43)
[2020-04-24] MEDS ORDERED: Furosemide 40 MG/4 ML VIAL IVP ONE (23:44)
[2020-04-24] MEDS ORDERED: Ipratropium/Albuterol Neb 3 ML IH PRN (23:45)
[2020-04-24] MEDS ORDERED: Benzonatate 100 MG CAPSULE PO PRN (23:45)
[2020-04-25] MEDS: DilTIAZem 50 MG/50 ML IV.SOLN IVC SCH ×2 (00:18→06:03)
[2020-04-25] MEDS ORDERED: *HR* Dextrose 50 % in Water (Vial) 50 ML VIAL IVP PRN (00:42)
[2020-04-25] MEDS ORDERED: Dextrose Gel 15 GM/37.5 ML TUBE PO PRN ×2 (00:42)
[2020-04-25] MEDS ORDERED: D5% in Water 1,000 ML IVC PRN (00:42)
[2020-04-25] MEDS: MethylPREDNISolone 40 MG/ML VIAL IVP SCH ×3 (00:55→16:31)
[2020-04-25 03:05] LABS: INR 1.8; Prothrombin Time 20.1 Seconds (9.4-12.1)
[2020-04-25 03:07] LABS: Basophils # 0.1 K/mcL (0.0-0.2); Basophils % 0.6 %; Eosinophils # 0.6 K/mcL (0.0-0.6); Hematocrit 39.5 % (37.5-50.1); Hemoglobin 12.1 g/dL (12.9-16.9); Immature Granulocytes % 1.1 % (0-4); Lymphocytes # 1.8 K/mcL (0.6-4.6); Lymphocytes % 13.1 %; Mean Corpuscular HGB Conc 30.6 g/dL (31.6-35.5); Mean Corpuscular Hemoglobin 23.5 pg (28.0-33.3); Mean Corpuscular Volume 76.7 fL (83.0-100.0); Mean Platelet Volume 11.8 fL (9.4-12.4); Monocytes # 1.4 K/mcL (0.0-1.3); Monocytes % 10.2 %; Neutrophils # 9.9 K/mcL (1.6-8.9); Platelet Count 322 K/mcL (140-400); Red Blood Count 5.15 M/mcL (4.19-5.50); Red Cell Distribution Width 18.6 % (11.5-14.5); White Blood Count 13.9 K/mcL (4.3-11.1)
[2020-04-25] MEDS: Ipratropium/Albuterol Neb 3 ML IH SCH ×7 (03:11→23:17)
[2020-04-25 03:24] LABS: Troponin I 0.03 ng/mL (< 0.04)
[2020-04-25 03:25] LABS: Alanine Aminotransferase 43 Units/L (7-52); Albumin 3.9 g/dL (3.5-5.7); Albumin/Globulin Ratio 1.1 (1.1-2.2); Alkaline Phosphatase 83 Units/L (34-104); Aspartate Amino Transferase 17 Units/L (13-39); BUN/Creatinine Ratio 13 (6-26); Bilirubin,Total 0.6 mg/dL (0.3-1.0); Blood Urea Nitrogen 16 mg/dL (8-23); Calcium 9.4 mg/dL (8.6-10.3); Carbon Dioxide 26 mEq/L (23-29); Chloride 94 mEq/L (98-107); Chol/HDL Ratio 4.8 (0-4.9); Cholesterol 135 mg/dL (< 200); Globulin 3.4 g/dL (2.4-3.5); Glucose 151 mg/dL (70-105); HDL Cholesterol 28 mg/dL (40-59); LDL Cholesterol,Calculated 81 mg/dL (< 100); Magnesium 1.5 mg/dL (1.6-2.6); Osmolality,Calculated 282 (280-300); Potassium 3.9 mEq/L (3.5-5.1); Sodium 134 mEq/L (136-145); Total Protein 7.3 g/dL (6.4-8.9); Triglycerides 128 mg/dL (< 150); eGFR For African Americans > 60 (> 60); eGFR For Non-African Americans 59 (> 60)
[2020-04-25] MEDS: Insulin LISPRO 300 UNITS/3 ML VIAL SQ SCH ×4 (07:27→20:42)
[2020-04-25] MEDS: Budesonide/Formoterol 160/4.5 1 PUFF INH IH SCH ×2 (07:39→19:53)
[2020-04-25] MEDS: *HR* Rivaroxaban 10 MG TABLET PO SCH (08:15)
[2020-04-25] MEDS: Furosemide 40 MG/4 ML VIAL IVP SCH ×2 (08:15→16:31)
[2020-04-25] MEDS: Aspirin Enteric Coated 81 MG Tablet PO SCH (08:15)
[2020-04-25] MEDS: Gabapentin 300 MG CAPSULE PO SCH ×2 (13:56→20:21)
[2020-04-25] MEDS: Isosorbide MONOnitrate (24 HR) 60 MG TAB.ER.24H PO SCH (13:56)
[2020-04-25] MEDS ORDERED: *HR* Metoprolol 5 MG/5 ML VIAL IVP ONE (18:17)
[2020-04-25] MEDS ORDERED: *HR* LORazepam 1 MG TABLET PO ONE (20:46)
[2020-04-25] MEDS ORDERED: Insulin DETEMIR 100 UNIT/ML X5UNITS SQ SCH (21:00)
[2020-04-26] MEDS ORDERED: Insulin LISPRO 300 UNITS/3 ML VIAL SQ ONE ×3 (00:24→10:15)
[2020-04-26] MEDS: Ipratropium/Albuterol Neb 3 ML IH SCH ×6 (04:25→23:54)
[2020-04-26] MEDS: MethylPREDNISolone 40 MG/ML VIAL IVP SCH (05:50)
[2020-04-26 06:04] LABS: Basophils % 0.1 %; Hematocrit 35.5 % (37.5-50.1); Hemoglobin 10.9 g/dL (12.9-16.9); Immature Granulocytes % 0.6 % (0-4); Lymphocytes # 0.6 K/mcL (0.6-4.6); Lymphocytes % 2.3 %; Mean Corpuscular HGB Conc 30.7 g/dL (31.6-35.5); Mean Corpuscular Hemoglobin 22.7 pg (28.0-33.3); Mean Platelet Volume 11.5 fL (9.4-12.4); Monocytes # 1.3 K/mcL (0.0-1.3); Monocytes % 5.4 %; Neutrophils # 22.6 K/mcL (1.6-8.9); Platelet Count 451 K/mcL (140-400); Red Cell Distribution Width 17.8 % (11.5-14.5); Segmented Neutrophils % 91.6 %
[2020-04-26 06:08] LABS: White Blood Count 24.7 K/mcL (4.3-11.1)
[2020-04-26 06:29] LABS: Calcium 9.3 mg/dL (8.6-10.3); Potassium 4.3 mEq/L (3.5-5.1)
[2020-04-26] MEDS ORDERED: Insulin Human Regular 10 UNIT in 0.9 % Sodium Chloride 10 ML IV ONE (06:32)
[2020-04-26 06:48] LABS: Platelet Estimate Normal (Normal)
[2020-04-26] MEDS: Insulin LISPRO 300 UNITS/3 ML VIAL SQ SCH ×4 (08:05→21:51)
[2020-04-26] MEDS: *HR* Rivaroxaban 10 MG TABLET PO SCH (08:16)
[2020-04-26] MEDS: Aspirin Enteric Coated 81 MG Tablet PO SCH (08:16)
[2020-04-26] MEDS: Gabapentin 300 MG CAPSULE PO SCH ×3 (08:17→20:26)
[2020-04-26] MEDS: Budesonide/Formoterol 160/4.5 1 PUFF INH IH SCH ×2 (08:33→19:45)
[2020-04-26] MEDS: Isosorbide MONOnitrate (24 HR) 60 MG TAB.ER.24H PO SCH (09:50)
[2020-04-26] MEDS ORDERED: Nitroglycerin 0.4 MG TAB.SUBL SL PRN (10:13)
[2020-04-26] MEDS ORDERED: 0.9 % Sodium Chloride 1,000 ML IVC SCH (12:30)
[2020-04-26] MEDS: predniSONE 20 MG TABLET PO SCH (17:11)
[2020-04-26] MEDS ORDERED: Insulin DETEMIR 100 UNIT/ML X5UNITS SQ SCH (21:00)
[2020-04-26] MEDS ORDERED: Melatonin 3 MG TABLET PO ONE (22:04)
[2020-04-27] MEDS: Ipratropium/Albuterol Neb 3 ML IH SCH ×6 (03:50→23:14)
[2020-04-27 06:09] LABS: Hematocrit 32.9 % (37.5-50.1); Immature Granulocytes % 0.5 % (0-4); Lymphocytes % 4.5 %; Mean Corpuscular HGB Conc 30.4 g/dL (31.6-35.5); Mean Corpuscular Volume 75.8 fL (83.0-100.0); Mean Platelet Volume 11.3 fL (9.4-12.4); Monocytes # 1.2 K/mcL (0.0-1.3); Monocytes % 5.5 %; Neutrophils # 19.7 K/mcL (1.6-8.9); Platelet Count 385 K/mcL (140-400); Red Blood Count 4.34 M/mcL (4.19-5.50); Red Cell Distribution Width 18.3 % (11.5-14.5); Segmented Neutrophils % 89.5 %
[2020-04-27 06:29] LABS: Calcium 8.8 mg/dL (8.6-10.3); Potassium 4.4 mEq/L (3.5-5.1)
[2020-04-27] MEDS: Budesonide/Formoterol 160/4.5 1 PUFF INH IH SCH ×2 (07:41→19:53)
[2020-04-27] MEDS: Insulin LISPRO 300 UNITS/3 ML VIAL SQ SCH ×4 (08:00→21:09)
[2020-04-27] MEDS: Aspirin Enteric Coated 81 MG Tablet PO SCH (08:01)
[2020-04-27] MEDS: *HR* Rivaroxaban 10 MG TABLET PO SCH (08:01)
[2020-04-27] MEDS: Gabapentin 300 MG CAPSULE PO SCH ×3 (08:01→21:08)
[2020-04-27] MEDS: predniSONE 20 MG TABLET PO SCH (08:01)
[2020-04-27] MEDS: Isosorbide MONOnitrate (24 HR) 60 MG TAB.ER.24H PO SCH (08:01)
[2020-04-27] MEDS ORDERED: 0.9 % Sodium Chloride 1,000 ML IVC SCH (09:30)
[2020-04-27 11:09] LABS: Estimated Average Glucose 209 mg/dl; Hemoglobin A1C 8.9 %
[2020-04-27] MEDS: Insulin DETEMIR 100 UNIT/ML X5UNITS SQ SCH ×2 (11:25→21:09)
[2020-04-27] MEDS ORDERED: *HR* Metoprolol 5 MG/5 ML VIAL IVP ONE ×2 (15:18→16:40)
[2020-04-27] MEDS ORDERED: DilTIAZem 50 MG/50 ML IV.SOLN IVC SCH (17:30)
[2020-04-27] MEDS ORDERED: Melatonin 3 MG TABLET PO ONE (20:58)
[2020-04-28] MEDS: Ipratropium/Albuterol Neb 3 ML IH SCH ×2 (03:53→08:07)
[2020-04-28 05:56] LABS: Basophils % 0.1 %; Eosinophils % 0.1 %; Hematocrit 33.2 % (37.5-50.1); Lymphocytes # 1.5 K/mcL (0.6-4.6); Lymphocytes % 8.9 %; Mean Corpuscular HGB Conc 30.1 g/dL (31.6-35.5); Mean Corpuscular Hemoglobin 23.1 pg (28.0-33.3); Mean Corpuscular Volume 76.9 fL (83.0-100.0); Monocytes # 1.4 K/mcL (0.0-1.3); Monocytes % 8.7 %; Neutrophils # 13.4 K/mcL (1.6-8.9); Platelet Count 363 K/mcL (140-400); Red Blood Count 4.32 M/mcL (4.19-5.50); Red Cell Distribution Width 18.2 % (11.5-14.5); Segmented Neutrophils % 81.2 %; White Blood Count 16.5 K/mcL (4.3-11.1)
[2020-04-28 06:11] LABS: BUN/Creatinine Ratio 27 (6-26); Blood Urea Nitrogen 37 mg/dL (8-23); Carbon Dioxide 26 mEq/L (23-29); Chloride 101 mEq/L (98-107); Glucose 300 mg/dL (70-105); Osmolality,Calculated 300 (280-300); Potassium 4.2 mEq/L (3.5-5.1); Sodium 135 mEq/L (136-145); eGFR For African Americans > 60 (> 60); eGFR For Non-African Americans 53 (> 60)
[2020-04-28] MEDS: Budesonide/Formoterol 160/4.5 1 PUFF INH IH SCH ×2 (08:07→19:57)
[2020-04-28] MEDS: Gabapentin 300 MG CAPSULE PO SCH ×3 (08:19→20:05)
[2020-04-28] MEDS: predniSONE 20 MG TABLET PO SCH (08:20)
[2020-04-28] MEDS: Aspirin Enteric Coated 81 MG Tablet PO SCH (08:21)
[2020-04-28] MEDS: *HR* Rivaroxaban 10 MG TABLET PO SCH (08:21)
[2020-04-28] MEDS: Insulin LISPRO 300 UNITS/3 ML VIAL SQ SCH ×4 (08:24→21:13)
[2020-04-28] MEDS: Isosorbide MONOnitrate (24 HR) 60 MG TAB.ER.24H PO SCH (08:36)
[2020-04-28] MEDS: Insulin DETEMIR 100 UNIT/ML X5UNITS SQ SCH (08:37)
[2020-04-28] MEDS: 0.9 % Sodium Chloride 1,000 ML IVC SCH ×2 (11:40→20:06)
[2020-04-28] MEDS ORDERED: Insulin LISPRO 300 UNITS/3 ML VIAL SUBQ ONE (15:30)
[2020-04-28] MEDS: Insulin DETEMIR 100 UNIT/ML X5UNITS SUBQ SCH (20:05)
[2020-04-28] MEDS ORDERED: Melatonin 3 MG TABLET PO PRN (21:19)
[2020-04-29 06:37] LABS: Basophils % 0.3 %; Eosinophils # 0.1 K/mcL (0.0-0.6); Eosinophils % 0.9 %; Hematocrit 34.1 % (37.5-50.1); Hemoglobin 10.2 g/dL (12.9-16.9); Immature Granulocytes % 1.3 % (0-4); Lymphocytes % 13.6 %; Mean Corpuscular HGB Conc 29.9 g/dL (31.6-35.5); Mean Platelet Volume 11.2 fL (9.4-12.4); Monocytes # 1.3 K/mcL (0.0-1.3); Monocytes % 9.1 %; Neutrophils # 10.9 K/mcL (1.6-8.9); Platelet Count 349 K/mcL (140-400); Red Blood Count 4.43 M/mcL (4.19-5.50); Red Cell Distribution Width 18.2 % (11.5-14.5); Segmented Neutrophils % 74.8 %; White Blood Count 14.5 K/mcL (4.3-11.1)
[2020-04-29 07:09] VITALS: BP 133/80
[2020-04-29] MEDS: Budesonide/Formoterol 160/4.5 1 PUFF INH IH SCH (08:01)
[2020-04-29] MEDS: Insulin DETEMIR 100 UNIT/ML X5UNITS SUBQ SCH (08:34)
[2020-04-29] MEDS: Gabapentin 300 MG CAPSULE PO SCH (08:34)
[2020-04-29] MEDS: Isosorbide MONOnitrate (24 HR) 60 MG TAB.ER.24H PO SCH (08:34)
[2020-04-29] MEDS: Insulin LISPRO 300 UNITS/3 ML VIAL SQ SCH ×2 (08:34→11:56)
[2020-04-29] MEDS: Aspirin Enteric Coated 81 MG Tablet PO SCH (08:34)
[2020-04-29] MEDS: predniSONE 20 MG TABLET PO SCH (08:35)
[2020-04-29] MEDS: *HR* Rivaroxaban 10 MG TABLET PO SCH (08:35)
[2020-04-29] MEDS ORDERED: DilTIAZem CD (24hr) 120 MG CAP.ER.24H PO SCH (09:45)
[2020-04-29 11:43] LABS: BUN/Creatinine Ratio 25 (6-26); Blood Urea Nitrogen 29 mg/dL (8-23); Calcium 8.6 mg/dL (8.6-10.3); Carbon Dioxide 24 mEq/L (23-29); Chloride 101 mEq/L (98-107); Glucose 297 mg/dL (70-105); Osmolality,Calculated 297 (280-300); Potassium 4.1 mEq/L (3.5-5.1); Sodium 135 mEq/L (136-145); eGFR For African Americans > 60 (> 60); eGFR For Non-African Americans > 60 (> 60)
[2020-04-29] MEDS: 0.9 % Sodium Chloride 1,000 ML IVC SCH (11:54)
== END 2020-04-29 13:40 | disposition home or self-care (01) | DRG 190 ==
LOC: 3ANU → SUATTDRO 22:46
PROVIDERS: ADMIT Family Medicine; ATTEND Internal Medicine

== ENCOUNTER 2020-05-01 15:01 | Inpatient (IN) ==
[2020-05-01] MEDS ORDERED: 0.9 % Sodium Chloride 1,000 ML IVC ONE (15:34)
[2020-05-01] MEDS ORDERED: Ondansetron 4 MG/2 ML VIAL IVP ONE (15:34)
[2020-05-01] MEDS ORDERED: *HR* FentaNYL (PF) 100 MCG/2 ML VIAL IVP ONE ×2 (15:34→16:59)
[2020-05-01 15:59] LABS: Basophils % 0.2 %; Red Cell Distribution Width 18.6 % (11.5-14.5)
[2020-05-01 16:04] LABS: Basophils # 0.1 K/mcL (0.0-0.2); Hemoglobin 12.2 g/dL (12.9-16.9); Immature Granulocytes % 0.8 % (0-4); Lymphocytes # 0.8 K/mcL (0.6-4.6); Lymphocytes % 2.9 %; Mean Corpuscular HGB Conc 31.3 g/dL (31.6-35.5); Mean Corpuscular Hemoglobin 23.7 pg (28.0-33.3); Mean Corpuscular Volume 75.7 fL (83.0-100.0); Mean Platelet Volume 11.4 fL (9.4-12.4); Monocytes # 1.6 K/mcL (0.0-1.3); Monocytes % 5.8 %; Platelet Count 457 K/mcL (140-400); Red Blood Count 5.15 M/mcL (4.19-5.50); Segmented Neutrophils % 90.3 %; White Blood Count 28.1 K/mcL (4.3-11.1)
[2020-05-01] MEDS ORDERED: Isovue-370 500 ML BOTTLE IVP ONE (16:10)
[2020-05-01 16:13] LABS: Neutrophils # 25.4 K/mcL (1.6-8.9)
[2020-05-01 16:26] LABS: Alanine Aminotransferase 41 Units/L (7-52); Albumin 3.9 g/dL (3.5-5.7); Albumin/Globulin Ratio 1.2 (1.1-2.2); Alkaline Phosphatase 83 Units/L (34-104); Aspartate Amino Transferase 13 Units/L (13-39); BUN/Creatinine Ratio 28 (6-26); Bilirubin,Direct 0.1 mg/dL (0.0-0.2); Bilirubin,Indirect 0.6 mg/dL (0.0-1.0); Bilirubin,Total 0.7 mg/dL (0.3-1.0); Blood Urea Nitrogen 30 mg/dL (8-23); Calcium 9.4 mg/dL (8.6-10.3); Carbon Dioxide 25 mEq/L (23-29); Chloride 97 mEq/L (98-107); Globulin 3.3 g/dL (2.4-3.5); Glucose 227 mg/dL (70-105); Osmolality,Calculated 289 (280-300); Potassium 4.4 mEq/L (3.5-5.1); Sodium 133 mEq/L (136-145); Total Protein 7.2 g/dL (6.4-8.9); Troponin I < 0.03 ng/mL (< 0.04); eGFR For African Americans > 60 (> 60); eGFR For Non-African Americans > 60 (> 60)
[2020-05-01 16:51] LABS: Platelet Estimate Normal (Normal)
[2020-05-01] MEDS ORDERED: Piperacillin/Tazobactam 3.375 GM in 0.9 % Sodium Chloride Mini Bag 100 ML IVPB ONE (17:10)
[2020-05-01] MEDS ORDERED: 0.9 % Sodium Chloride 1,000 ML IVC STA (17:15)
[2020-05-01] MEDS ORDERED: Naloxone 0.4 MG/ML INJ IVP PRN (17:41)
[2020-05-01] MEDS ORDERED: Ondansetron 4 MG/2 ML VIAL IVP PRN (17:41)
[2020-05-01] MEDS ORDERED: Dextrose Gel 15 GM/37.5 ML TUBE PO PRN ×2 (17:43)
[2020-05-01] MEDS ORDERED: Ipratropium/Albuterol Neb 3 ML IH PRN (17:43)
[2020-05-01] MEDS ORDERED: D5% in Water 1,000 ML IVC PRN (17:43)
[2020-05-01] MEDS ORDERED: *HR* Dextrose 50 % in Water (Vial) 50 ML VIAL IVP PRN (17:43)
[2020-05-01] MEDS ORDERED: *HR* HYDROmorphone (PF) 1 MG/ML SYRINGE IVP PRN (17:44)
[2020-05-01] MEDS ORDERED: *HR* Metoprolol 5 MG/5 ML VIAL IVP PRN (18:08)
[2020-05-01 18:27] LABS: Bilirubin,Urine Negative (Negative); Blood,Urine Negative (Negative); Clarity,Urine Clear (Clear); Color,Urine Light-Yellow (Yellow); Glucose,Urine (UA) 300 mg/dL (Normal); Ketones,Urine Negative (Negative); Leukocyte Esterase,Urine Negative (Negative); Nitrite,Urine Negative (Negative); Protein,Urine Trace mg/dL (Neg-Trace); Specific Gravity,Urine > 1.030 (1.010-1.025); Squamous Epithelial Cell,Urine Few per hpf (None-Few); Urobilinogen,Urine Normal (Normal); WBC,Urine 0-3 per hpf (0-3)
[2020-05-01] MEDS: 0.9 % Sodium Chloride 1,000 ML IVC SCH (18:34)
[2020-05-01] MEDS: Insulin LISPRO 300 UNITS/3 ML VIAL SUBQ SCH (18:35)
[2020-05-01] MEDS: *HR* Heparin 5,000 UNIT/ML VIAL SQ SCH (21:49)
[2020-05-02] MEDS: Ondansetron 4 MG/2 ML VIAL IVP PRN ×2 (00:19→04:10)
[2020-05-02] MEDS: 0.9 % Sodium Chloride 1,000 ML IVC SCH (00:20)
[2020-05-02] MEDS: Insulin LISPRO 300 UNITS/3 ML VIAL SUBQ SCH ×4 (00:24→16:48)
[2020-05-02] MEDS: *HR* HYDROmorphone (PF) 1 MG/ML SYRINGE IVP PRN ×2 (01:43→05:55)
[2020-05-02] MEDS ORDERED: Prochlorperazine 10 MG/2 ML VIAL IVP ONE (04:46)
[2020-05-02] MEDS: *HR* Heparin 5,000 UNIT/ML VIAL SQ SCH ×3 (05:53→20:39)
[2020-05-02 06:10] LABS: Basophils % 0.2 %; Eosinophils % 0.1 %; Hematocrit 37.3 % (37.5-50.1); Hemoglobin 11.3 g/dL (12.9-16.9); Immature Granulocytes % 0.5 % (0-4); Lymphocytes # 0.8 K/mcL (0.6-4.6); Lymphocytes % 4.3 %; Mean Corpuscular HGB Conc 30.3 g/dL (31.6-35.5); Mean Platelet Volume 11.4 fL (9.4-12.4); Monocytes # 1.9 K/mcL (0.0-1.3); Monocytes % 10.4 %; Neutrophils # 15.6 K/mcL (1.6-8.9); Platelet Count 407 K/mcL (140-400); Red Blood Count 4.91 M/mcL (4.19-5.50); Red Cell Distribution Width 18.6 % (11.5-14.5); Segmented Neutrophils % 84.5 %; White Blood Count 18.4 K/mcL (4.3-11.1)
[2020-05-02 06:33] LABS: BUN/Creatinine Ratio 23 (6-26); Blood Urea Nitrogen 24 mg/dL (8-23); Calcium 8.8 mg/dL (8.6-10.3); Carbon Dioxide 24 mEq/L (23-29); Chloride 102 mEq/L (98-107); Glucose 191 mg/dL (70-105); Osmolality,Calculated 291 (280-300); Potassium 3.8 mEq/L (3.5-5.1); Sodium 136 mEq/L (136-145); eGFR For African Americans > 60 (> 60); eGFR For Non-African Americans > 60 (> 60)
[2020-05-02] MEDS ORDERED: *HR* Propofol 200 MG/20 ML VIAL IVP ONE (07:12)
[2020-05-02] MEDS ORDERED: *HR* FentaNYL (PF) 100 MCG/2 ML VIAL ONE (07:12)
[2020-05-02] MEDS ORDERED: *HR* Succinylcholine 200 MG/10 ML VIAL IVP ONE (07:19)
[2020-05-02] MEDS ORDERED: Lidocaine -MPF 2% 2 ML VIAL ONE (07:19)
[2020-05-02] MEDS ORDERED: Isovue-300 50ML VIAL ONE (07:45)
[2020-05-02] MEDS ORDERED: *HR* Phenylephrine 10 MG/ML VIAL ONE (07:45)
[2020-05-02] MEDS ORDERED: Acetaminophen IV 1,000 MG/100 ML BAG IVPB ONE (08:28)
[2020-05-02] MEDS ORDERED: *HR* Metoprolol 5 MG/5 ML VIAL IVP ONE (08:53)
[2020-05-02] MEDS ORDERED: Dextrose Gel 15 GM/37.5 ML TUBE PO PRN ×2 (09:47)
[2020-05-02] MEDS ORDERED: *HR* HYDROmorphone (PF) 1 MG/ML SYRINGE IVP PRN (09:47)
[2020-05-02] MEDS ORDERED: D5% in Water 1,000 ML IVC PRN (09:47)
[2020-05-02] MEDS ORDERED: 0.9 % Sodium Chloride 1,000 ML IVC SCH (09:47)
[2020-05-02] MEDS ORDERED: Naloxone 0.4 MG/ML INJ IVP PRN (09:47)
[2020-05-02] MEDS ORDERED: Ipratropium/Albuterol Neb 3 ML IH PRN (09:47)
[2020-05-02] MEDS ORDERED: *HR* Metoprolol 5 MG/5 ML VIAL IVP PRN (09:47)
[2020-05-02] MEDS ORDERED: *HR* Dextrose 50 % in Water (Vial) 50 ML VIAL IVP PRN (09:47)
[2020-05-02] MEDS ORDERED: Ondansetron 4 MG/2 ML VIAL IVP PRN (09:47)
[2020-05-02] MEDS: Pantoprazole 40 MG VIAL IVP SCH (16:47)
[2020-05-02] MEDS: Budesonide/Formoterol 160/4.5 1 PUFF INH IH SCH (20:23)
[2020-05-02] MEDS ORDERED: Melatonin 3 MG TABLET PO ONE (20:56)
[2020-05-03] MEDS: Insulin LISPRO 300 UNITS/3 ML VIAL SUBQ SCH ×3 (00:06→12:29)
[2020-05-03 05:14] LABS: Basophils % 0.1 %; Eosinophils % 0.1 %; Hematocrit 33.6 % (37.5-50.1); Hemoglobin 9.9 g/dL (12.9-16.9); Immature Granulocytes % 0.4 % (0-4); Mean Corpuscular HGB Conc 29.5 g/dL (31.6-35.5); Mean Corpuscular Hemoglobin 23.1 pg (28.0-33.3); Mean Corpuscular Volume 78.3 fL (83.0-100.0); Mean Platelet Volume 12.4 fL (9.4-12.4); Monocytes % 10.3 %; Neutrophils # 7.4 K/mcL (1.6-8.9); Platelet Count 355 K/mcL (140-400); Red Blood Count 4.29 M/mcL (4.19-5.50); Red Cell Distribution Width 18.7 % (11.5-14.5); Segmented Neutrophils % 78.1 %; White Blood Count 9.4 K/mcL (4.3-11.1)
[2020-05-03] MEDS: *HR* Heparin 5,000 UNIT/ML VIAL SQ SCH ×3 (05:18→21:23)
[2020-05-03] MEDS: Pantoprazole 40 MG VIAL IVP SCH ×2 (05:18→17:06)
[2020-05-03 05:37] LABS: BUN/Creatinine Ratio 24 (6-26); Blood Urea Nitrogen 16 mg/dL (8-23); Calcium 8.5 mg/dL (8.6-10.3); Carbon Dioxide 26 mEq/L (23-29); Chloride 106 mEq/L (98-107); Glucose 149 mg/dL (70-105); Osmolality,Calculated 296 (280-300); Potassium 3.7 mEq/L (3.5-5.1); Sodium 141 mEq/L (136-145); eGFR For African Americans > 60 (> 60); eGFR For Non-African Americans > 60 (> 60)
[2020-05-03] MEDS: Budesonide/Formoterol 160/4.5 1 PUFF INH IH SCH ×2 (07:41→19:48)
[2020-05-03] MEDS: DilTIAZem CD (24hr) 120 MG CAP.ER.24H PO SCH (14:02)
[2020-05-03] MEDS: Gabapentin 300 MG CAPSULE PO SCH ×2 (14:02→21:24)
[2020-05-03] MEDS: *HR* Rivaroxaban 10 MG TABLET PO SCH (14:05)
[2020-05-03] MEDS ORDERED: Melatonin 3 MG TABLET PO ONE (20:01)
[2020-05-03] MEDS ORDERED: Insulin LISPRO 300 UNITS/3 ML VIAL SUBQ SCH (21:00)
[2020-05-04] MEDS: *HR* Heparin 5,000 UNIT/ML VIAL SQ SCH (05:44)
[2020-05-04] MEDS: Pantoprazole 40 MG VIAL IVP SCH (05:45)
[2020-05-04 06:10] LABS: Basophils % 0.2 %; Eosinophils # 0.2 K/mcL (0.0-0.6); Eosinophils % 2.1 %; Hematocrit 36.2 % (37.5-50.1); Hemoglobin 10.9 g/dL (12.9-16.9); Immature Granulocytes % 0.4 % (0-4); Lymphocytes # 1.4 K/mcL (0.6-4.6); Lymphocytes % 17.2 %; Mean Corpuscular HGB Conc 30.1 g/dL (31.6-35.5); Mean Corpuscular Hemoglobin 23.7 pg (28.0-33.3); Mean Corpuscular Volume 78.7 fL (83.0-100.0); Mean Platelet Volume 11.1 fL (9.4-12.4); Monocytes # 0.8 K/mcL (0.0-1.3); Monocytes % 10.1 %; Neutrophils # 5.7 K/mcL (1.6-8.9); Platelet Count 306 K/mcL (140-400); Red Cell Distribution Width 18.6 % (11.5-14.5); White Blood Count 8.1 K/mcL (4.3-11.1)
[2020-05-04 06:32] LABS: BUN/Creatinine Ratio 18 (6-26); Blood Urea Nitrogen 11 mg/dL (8-23); Calcium 8.4 mg/dL (8.6-10.3); Carbon Dioxide 28 mEq/L (23-29); Chloride 103 mEq/L (98-107); Glucose 162 mg/dL (70-105); Osmolality,Calculated 289 (280-300); Potassium 3.3 mEq/L (3.5-5.1); Sodium 138 mEq/L (136-145); eGFR For African Americans > 60 (> 60); eGFR For Non-African Americans > 60 (> 60)
[2020-05-04 07:54] VITALS: BP 135/82
[2020-05-04] MEDS ORDERED: Isosorbide MONOnitrate (24 HR) 60 MG TAB.ER.24H PO SCH (09:00)
[2020-05-04] MEDS ORDERED: Aspirin Enteric Coated 81 MG Tablet PO SCH (09:00)
[2020-05-04] MEDS: DilTIAZem CD (24hr) 120 MG CAP.ER.24H PO SCH (09:38)
[2020-05-04] MEDS: Gabapentin 300 MG CAPSULE PO SCH (09:38)
[2020-05-04] MEDS: Insulin LISPRO 300 UNITS/3 ML VIAL SUBQ SCH ×2 (09:38→12:06)
[2020-05-04] MEDS: *HR* Rivaroxaban 10 MG TABLET PO SCH (09:38)
[2020-05-04] MEDS: Budesonide/Formoterol 160/4.5 1 PUFF INH IH SCH (10:23)
== END 2020-05-04 13:19 | disposition home or self-care (01) | DRG 660 ==
LOC: 3ANU 15:01 → EMEROOARM 15:01 → SUATTDRO 17:49 → 3ANU 18:10 → SUATTDRO 05-03 21:33
PROVIDERS: ADMIT Student in an Organized Health Care Education/Training Program; ATTEND Internal Medicine

== ENCOUNTER 2020-05-06 12:18 | Inpatient (IN) ==
[2020-05-06] MEDS ORDERED: *HR* HYDROmorphone (PF) 1 MG/ML SYRINGE IVP STA (12:31)
[2020-05-06] MEDS ORDERED: Ondansetron 4 MG/2 ML VIAL IVP ONE (12:31)
[2020-05-06] MEDS ORDERED: 0.9 % Sodium Chloride 1,000 ML IVC ONE (12:31)
[2020-05-06] MEDS ORDERED: Isovue-370 500 ML BOTTLE IVP ONE (12:33)
[2020-05-06 13:01] LABS: Basophils % 0.2 %; Eosinophils # 0.2 K/mcL (0.0-0.6); Eosinophils % 1.2 %; Hematocrit 38.9 % (37.5-50.1); Hemoglobin 11.9 g/dL (12.9-16.9); Immature Granulocytes % 0.5 % (0-4); Lymphocytes # 0.8 K/mcL (0.6-4.6); Lymphocytes % 6.6 %; Mean Corpuscular HGB Conc 30.6 g/dL (31.6-35.5); Mean Corpuscular Hemoglobin 23.6 pg (28.0-33.3); Mean Corpuscular Volume 77.2 fL (83.0-100.0); Mean Platelet Volume 11.9 fL (9.4-12.4); Monocytes # 0.8 K/mcL (0.0-1.3); Monocytes % 6.4 %; Neutrophils # 10.5 K/mcL (1.6-8.9); Platelet Count 319 K/mcL (140-400); Red Blood Count 5.04 M/mcL (4.19-5.50); Red Cell Distribution Width 18.6 % (11.5-14.5); Segmented Neutrophils % 85.1 %
[2020-05-06 13:03] LABS: White Blood Count 12.3 K/mcL (4.3-11.1)
[2020-05-06 13:10] LABS: INR 2.4; Prothrombin Time 27.1 Seconds (9.4-12.1)
[2020-05-06 13:13] LABS: Activated Partial Thrombo Time 31.9 Seconds (26.0-36.0)
[2020-05-06 13:18] LABS: Alanine Aminotransferase 29 Units/L (7-52); Albumin 3.5 g/dL (3.5-5.7); Albumin/Globulin Ratio 1.1 (1.1-2.2); Alkaline Phosphatase 73 Units/L (34-104); Aspartate Amino Transferase 19 Units/L (13-39); BUN/Creatinine Ratio 11 (6-26); Bilirubin,Direct 0.1 mg/dL (0.0-0.2); Bilirubin,Indirect 0.2 mg/dL (0.0-1.0); Bilirubin,Total 0.3 mg/dL (0.3-1.0); Blood Urea Nitrogen 8 mg/dL (8-23); Calcium 9.1 mg/dL (8.6-10.3); Carbon Dioxide 25 mEq/L (23-29); Chloride 101 mEq/L (98-107); Globulin 3.1 g/dL (2.4-3.5); Glucose 206 mg/dL (70-105); Lipase 45 Units/L (11-82); Osmolality,Calculated 288 (280-300); Potassium 3.9 mEq/L (3.5-5.1); Sodium 137 mEq/L (136-145); Total Protein 6.6 g/dL (6.4-8.9); Troponin I < 0.03 ng/mL (< 0.04); eGFR For African Americans > 60 (> 60); eGFR For Non-African Americans > 60 (> 60)
[2020-05-06] MEDS ORDERED: Isovue-370 500 ML BOTTLE PO ONE (13:47)
[2020-05-06] MEDS ORDERED: *HR* HYDROmorphone (PF) 1 MG/ML SYRINGE IVP ONE ×2 (14:26→15:58)
[2020-05-06 15:22] LABS: Bilirubin,Urine Negative (Negative); Blood,Urine Large (Negative); Clarity,Urine Ex.Turbid (Clear); Color,Urine Red (Yellow); Glucose,Urine (UA) 70 mg/dL (Normal); Ketones,Urine Negative (Negative); Leukocyte Esterase,Urine Moderate (Negative); Nitrite,Urine Negative (Negative); PH,Urine 6.5 pH Units (5.0-8.0); Protein,Urine 200 mg/dL (Neg-Trace); Specific Gravity,Urine 1.016 (1.010-1.025); Urobilinogen,Urine Normal (Normal)
[2020-05-06] MEDS ORDERED: Naloxone 0.4 MG/ML INJ IVP PRN (15:46)
[2020-05-06] MEDS ORDERED: D5% in Water 1,000 ML IVC PRN (16:57)
[2020-05-06] MEDS ORDERED: Dextrose Gel 15 GM/37.5 ML TUBE PO PRN ×2 (16:57)
[2020-05-06] MEDS ORDERED: *HR* Dextrose 50 % in Water (Vial) 50 ML VIAL IVP PRN (16:57)
[2020-05-06] MEDS ORDERED: Nitroglycerin 0.4 MG TAB.SUBL SL PRN (17:38)
[2020-05-06] MEDS: Morphine Sulfate 2 MG/ML SYRINGE IVP PRN ×2 (18:06→22:17)
[2020-05-06] MEDS: Ondansetron 4 MG/2 ML VIAL IVP PRN ×2 (18:07→22:16)
[2020-05-06] MEDS: Insulin LISPRO 300 UNITS/3 ML VIAL SUBQ SCH ×2 (19:07→23:49)
[2020-05-06] MEDS: Gabapentin 300 MG CAPSULE PO SCH (19:22)
[2020-05-06] MEDS ORDERED: *HR* Metoprolol 5 MG/5 ML VIAL IVP PRN (20:02)
[2020-05-06] MEDS: Budesonide/Formoterol 160/4.5 1 PUFF INH IH SCH (20:02)
[2020-05-06] MEDS: Ketorolac 15 MG/ML VIAL IVP PRN (23:05)
[2020-05-06] MEDS: DilTIAZem 50 MG/50 ML IV.SOLN IVC SCH (23:52)
[2020-05-07] MEDS: Piperacillin/Tazobactam 3.375 GM in 0.9 % Sodium Chloride Mini Bag 100 ML IVPB SCH ×3 (00:38→17:10)
[2020-05-07 00:57] LABS: Basophils % 0.2 %; Eosinophils % 0.1 %; Hematocrit 39.5 % (37.5-50.1); Hemoglobin 11.7 g/dL (12.9-16.9); Immature Granulocytes % 0.4 % (0-4); Lymphocytes # 0.6 K/mcL (0.6-4.6); Mean Corpuscular HGB Conc 29.6 g/dL (31.6-35.5); Mean Corpuscular Volume 77.6 fL (83.0-100.0); Monocytes # 0.7 K/mcL (0.0-1.3); Monocytes % 3.6 %; Neutrophils # 18.5 K/mcL (1.6-8.9); Platelet Count 310 K/mcL (140-400); Red Blood Count 5.09 M/mcL (4.19-5.50); Red Cell Distribution Width 18.9 % (11.5-14.5); Segmented Neutrophils % 92.7 %
[2020-05-07 01:01] LABS: BUN/Creatinine Ratio 20 (6-26); Blood Urea Nitrogen 12 mg/dL (8-23); Calcium 8.8 mg/dL (8.6-10.3); Carbon Dioxide 26 mEq/L (23-29); Chloride 101 mEq/L (98-107); Glucose 187 mg/dL (70-105); Osmolality,Calculated 285 (280-300); Potassium 4.3 mEq/L (3.5-5.1); Sodium 135 mEq/L (136-145); eGFR For African Americans > 60 (> 60); eGFR For Non-African Americans > 60 (> 60)
[2020-05-07] MEDS: Morphine Sulfate 2 MG/ML SYRINGE IVP PRN ×3 (04:18→14:11)
[2020-05-07] MEDS: Insulin LISPRO 300 UNITS/3 ML VIAL SUBQ SCH ×4 (06:15→23:51)
[2020-05-07] MEDS: Budesonide/Formoterol 160/4.5 1 PUFF INH IH SCH ×2 (08:01→19:52)
[2020-05-07] MEDS: Isosorbide MONOnitrate (24 HR) 60 MG TAB.ER.24H PO SCH (08:03)
[2020-05-07] MEDS: Gabapentin 300 MG CAPSULE PO SCH ×2 (08:03→19:52)
[2020-05-07] MEDS: DilTIAZem CD (24hr) 120 MG CAP.ER.24H PO SCH (08:03)
[2020-05-07] MEDS: 0.9 % Sodium Chloride 1,000 ML IVC SCH (12:08)
[2020-05-07] MEDS: Ketorolac 15 MG/ML VIAL IVP PRN (20:06)
[2020-05-07] MEDS: DilTIAZem 50 MG/50 ML IV.SOLN IVC SCH (23:32)
[2020-05-08] MEDS: Piperacillin/Tazobactam 3.375 GM in 0.9 % Sodium Chloride Mini Bag 100 ML IVPB SCH ×3 (00:04→18:41)
[2020-05-08] MEDS: 0.9 % Sodium Chloride 1,000 ML IVC SCH (00:11)
[2020-05-08] MEDS: Morphine Sulfate 2 MG/ML SYRINGE IVP PRN ×4 (03:53→20:59)
[2020-05-08 06:05] LABS: Basophils % 0.2 %; Eosinophils # 0.3 K/mcL (0.0-0.6); Eosinophils % 3.1 %; Hematocrit 32.1 % (37.5-50.1); Immature Granulocytes % 0.4 % (0-4); Lymphocytes # 0.8 K/mcL (0.6-4.6); Lymphocytes % 8.9 %; Mean Corpuscular HGB Conc 29.9 g/dL (31.6-35.5); Mean Corpuscular Hemoglobin 23.8 pg (28.0-33.3); Mean Corpuscular Volume 79.7 fL (83.0-100.0); Mean Platelet Volume 11.6 fL (9.4-12.4); Neutrophils # 7.2 K/mcL (1.6-8.9); Platelet Count 256 K/mcL (140-400); Red Blood Count 4.03 M/mcL (4.19-5.50); Red Cell Distribution Width 18.9 % (11.5-14.5); Segmented Neutrophils % 76.4 %; White Blood Count 9.4 K/mcL (4.3-11.1)
[2020-05-08 06:06] LABS: Hemoglobin 9.6 g/dL (12.9-16.9)
[2020-05-08] MEDS: Insulin LISPRO 300 UNITS/3 ML VIAL SUBQ SCH ×3 (06:14→18:39)
[2020-05-08 06:25] LABS: BUN/Creatinine Ratio 18 (6-26); Blood Urea Nitrogen 14 mg/dL (8-23); Calcium 8.3 mg/dL (8.6-10.3); Carbon Dioxide 28 mEq/L (23-29); Chloride 101 mEq/L (98-107); Glucose 132 mg/dL (70-105); Osmolality,Calculated 282 (280-300); Potassium 4.1 mEq/L (3.5-5.1); Sodium 135 mEq/L (136-145); eGFR For African Americans > 60 (> 60); eGFR For Non-African Americans > 60 (> 60)
[2020-05-08] MEDS: Ondansetron 4 MG/2 ML VIAL IVP PRN ×2 (07:48→19:56)
[2020-05-08] MEDS: Gabapentin 300 MG CAPSULE PO SCH ×2 (07:48→19:55)
[2020-05-08] MEDS: DilTIAZem CD (24hr) 120 MG CAP.ER.24H PO SCH (07:49)
[2020-05-08] MEDS: Isosorbide MONOnitrate (24 HR) 60 MG TAB.ER.24H PO SCH (07:49)
[2020-05-08] MEDS: Budesonide/Formoterol 160/4.5 1 PUFF INH IH SCH ×2 (10:53→20:38)
[2020-05-08] MEDS: Ketorolac 15 MG/ML VIAL IVP PRN (11:22)
[2020-05-08] MEDS: DilTIAZem 50 MG/50 ML IV.SOLN IVC SCH (20:43)
[2020-05-09] MEDS: Ondansetron 4 MG/2 ML VIAL IVP PRN (01:58)
[2020-05-09] MEDS: Morphine Sulfate 2 MG/ML SYRINGE IVP PRN (02:57)
[2020-05-09] MEDS ORDERED: Acetaminophen 325 MG TABLET PO PRN (03:51)
[2020-05-09] MEDS: Insulin LISPRO 300 UNITS/3 ML VIAL SUBQ SCH ×4 (05:24→17:48)
[2020-05-09] MEDS: Budesonide/Formoterol 160/4.5 1 PUFF INH IH SCH ×2 (07:54→21:32)
[2020-05-09] MEDS: Isosorbide MONOnitrate (24 HR) 60 MG TAB.ER.24H PO SCH (08:19)
[2020-05-09] MEDS: Aspirin Enteric Coated 81 MG Tablet PO SCH (08:20)
[2020-05-09] MEDS: Piperacillin/Tazobactam 3.375 GM in 0.9 % Sodium Chloride Mini Bag 100 ML IVPB SCH ×3 (08:20→18:14)
[2020-05-09] MEDS: *HR* Rivaroxaban 10 MG TABLET PO SCH (08:20)
[2020-05-09] MEDS: Gabapentin 300 MG CAPSULE PO SCH ×2 (08:20→21:57)
[2020-05-09] MEDS: DilTIAZem CD (24hr) 120 MG CAP.ER.24H PO SCH (08:22)
[2020-05-09] MEDS: Sennosides/Docusate Sodium TABLET PO SCH ×2 (12:00→21:57)
[2020-05-09] MEDS: DilTIAZem 50 MG/50 ML IV.SOLN IVC SCH (22:12)
[2020-05-10] MEDS: Piperacillin/Tazobactam 3.375 GM in 0.9 % Sodium Chloride Mini Bag 100 ML IVPB SCH ×2 (01:30→08:37)
[2020-05-10] MEDS: Insulin LISPRO 300 UNITS/3 ML VIAL SUBQ SCH ×3 (02:21→12:05)
[2020-05-10] MEDS: Morphine Sulfate 2 MG/ML SYRINGE IVP PRN ×2 (04:06→09:02)
[2020-05-10] MEDS: Budesonide/Formoterol 160/4.5 1 PUFF INH IH SCH (07:31)
[2020-05-10] MEDS ORDERED: Isovue-370 500 ML BOTTLE IVP ONE (08:05)
[2020-05-10] MEDS: DilTIAZem CD (24hr) 120 MG CAP.ER.24H PO SCH (08:36)
[2020-05-10] MEDS: Sennosides/Docusate Sodium TABLET PO SCH (08:36)
[2020-05-10] MEDS: Aspirin Enteric Coated 81 MG Tablet PO SCH (08:36)
[2020-05-10] MEDS: Isosorbide MONOnitrate (24 HR) 60 MG TAB.ER.24H PO SCH (08:36)
[2020-05-10] MEDS: Gabapentin 300 MG CAPSULE PO SCH (08:36)
[2020-05-10] MEDS: *HR* Rivaroxaban 10 MG TABLET PO SCH (08:37)
[2020-05-10] MEDS: Ondansetron 4 MG/2 ML VIAL IVP PRN (09:02)
[2020-05-10 09:17] LABS: Basophils % 0.1 %; Eosinophils # 0.2 K/mcL (0.0-0.6); Eosinophils % 2.4 %; Hematocrit 33.2 % (37.5-50.1); Hemoglobin 9.9 g/dL (12.9-16.9); Immature Granulocytes % 0.1 % (0-4); Lymphocytes % 14.8 %; Mean Corpuscular HGB Conc 29.8 g/dL (31.6-35.5); Mean Corpuscular Hemoglobin 23.1 pg (28.0-33.3); Mean Corpuscular Volume 77.4 fL (83.0-100.0); Mean Platelet Volume 11.3 fL (9.4-12.4); Monocytes # 0.7 K/mcL (0.0-1.3); Monocytes % 10.2 %; Neutrophils # 4.9 K/mcL (1.6-8.9); Platelet Count 262 K/mcL (140-400); Red Blood Count 4.29 M/mcL (4.19-5.50); Red Cell Distribution Width 18.6 % (11.5-14.5); Segmented Neutrophils % 72.4 %; White Blood Count 6.7 K/mcL (4.3-11.1)
[2020-05-10 09:32] LABS: BUN/Creatinine Ratio 13 (6-26); Blood Urea Nitrogen 8 mg/dL (8-23); Calcium 8.4 mg/dL (8.6-10.3); Carbon Dioxide 26 mEq/L (23-29); Chloride 104 mEq/L (98-107); Glucose 210 mg/dL (70-105); Osmolality,Calculated 287 (280-300); Potassium 3.3 mEq/L (3.5-5.1); Sodium 136 mEq/L (136-145); eGFR For African Americans > 60 (> 60); eGFR For Non-African Americans > 60 (> 60)
[2020-05-10 12:05] VITALS: BP 92/65
== END 2020-05-10 16:30 | disposition home health service (06) | DRG 871 ==
LOC: EMEROOARM 12:18 → 3BNU 12:18
PROVIDERS: ADMIT Student in an Organized Health Care Education/Training Program; ATTEND Student in an Organized Health Care Education/Training Program

== ENCOUNTER 2020-06-04 21:49 | Inpatient (IN) ==
[2020-06-04] MEDS ORDERED: 0.9 % Sodium Chloride 1,000 ML IVC ONE (22:02)
[2020-06-04] MEDS ORDERED: Morphine Sulfate 2 MG/ML SYRINGE IVP ONE (22:02)
[2020-06-04] MEDS ORDERED: Ondansetron 4 MG/2 ML VIAL IVP ONE (22:02)
[2020-06-04] MEDS ORDERED: Isovue-370 500 ML BOTTLE IVP ONE (22:27)
[2020-06-04 22:34] LABS: Bilirubin,Urine Negative (Negative); Blood,Urine Moderate (Negative); Clarity,Urine Clear (Clear); Color,Urine Yellow (Yellow); Glucose,Urine (UA) Normal (Normal); Ketones,Urine Negative (Negative); Leukocyte Esterase,Urine Negative (Negative); Mucus,Urine Few per lpf (None-Few); Nitrite,Urine Negative (Negative); Protein,Urine 100 mg/dL (Neg-Trace); RBC,Urine TNTC per hpf (0-3); Specific Gravity,Urine 1.024 (1.010-1.025); Urobilinogen,Urine Normal (Normal); WBC,Urine 0-3 per hpf (0-3)
[2020-06-04 22:49] LABS: Basophils # 0.1 K/mcL (0.0-0.2); Basophils % 0.6 %; Eosinophils # 0.2 K/mcL (0.0-0.6); Eosinophils % 1.5 %; Hematocrit 35.9 % (37.5-50.1); Hemoglobin 10.8 g/dL (12.9-16.9); Immature Granulocytes % 0.6 % (0-4); Lymphocytes # 1.5 K/mcL (0.6-4.6); Lymphocytes % 10.2 %; Mean Corpuscular HGB Conc 30.1 g/dL (31.6-35.5); Mean Corpuscular Hemoglobin 23.5 pg (28.0-33.3); Monocytes # 1.2 K/mcL (0.0-1.3); Monocytes % 8.3 %; Neutrophils # 11.3 K/mcL (1.6-8.9); Platelet Count 359 K/mcL (140-400); Red Cell Distribution Width 19.1 % (11.5-14.5); Segmented Neutrophils % 78.8 %; White Blood Count 14.4 K/mcL (4.3-11.1)
[2020-06-04 22:57] LABS: INR 1.2; Prothrombin Time 13.7 Seconds (9.4-12.1)
[2020-06-04 23:10] LABS: Alanine Aminotransferase 35 Units/L (7-52); Albumin 3.7 g/dL (3.5-5.7); Alkaline Phosphatase 84 Units/L (34-104); Aspartate Amino Transferase 27 Units/L (13-39); BUN/Creatinine Ratio 13 (6-26); Bilirubin,Direct 0.1 mg/dL (0.0-0.2); Bilirubin,Indirect 0.2 mg/dL (0.0-1.0); Bilirubin,Total 0.3 mg/dL (0.3-1.0); Blood Urea Nitrogen 9 mg/dL (8-23); Calcium 9.2 mg/dL (8.6-10.3); Carbon Dioxide 28 mEq/L (23-29); Chloride 99 mEq/L (98-107); Globulin 3.7 g/dL (2.4-3.5); Glucose 151 mg/dL (70-105); Lipase 25 Units/L (11-82); Osmolality,Calculated 288 (280-300); Potassium 4.1 mEq/L (3.5-5.1); Sodium 138 mEq/L (136-145); Total Protein 7.4 g/dL (6.4-8.9); Troponin I < 0.03 ng/mL (< 0.04); eGFR For African Americans > 60 (> 60); eGFR For Non-African Americans > 60 (> 60)
[2020-06-04] MEDS ORDERED: *HR* HYDROmorphone (PF) 1 MG/ML SYRINGE IVP ONE (23:20)
[2020-06-05] MEDS ORDERED: *HR* HYDROmorphone (PF) 1 MG/ML SYRINGE IVP ONE (02:00)
[2020-06-05] MEDS ORDERED: *HR* Promethazine 25 MG/ML VIAL IM PRN (02:44)
[2020-06-05] MEDS ORDERED: Ondansetron 4 MG/2 ML VIAL IVP PRN (02:44)
[2020-06-05] MEDS: *HR* HYDROmorphone (PF) 1 MG/ML SYRINGE IVP PRN ×3 (03:15→16:21)
[2020-06-05] MEDS ORDERED: Nitroglycerin 0.4 MG TAB.SUBL SL PRN (04:16)
[2020-06-05] MEDS ORDERED: Sennosides/Docusate Sodium TABLET PO PRN (04:16)
[2020-06-05] MEDS ORDERED: *HR* Metoprolol 5 MG/5 ML VIAL IVP PRN (04:17)
[2020-06-05] MEDS ORDERED: Ipratropium/Albuterol Neb 3 ML IH PRN (04:17)
[2020-06-05] MEDS ORDERED: *HR* Dextrose 50 % in Water (Vial) 50 ML VIAL IVP PRN (04:20)
[2020-06-05] MEDS ORDERED: Dextrose Gel 15 GM/37.5 ML TUBE PO PRN ×2 (04:20)
[2020-06-05] MEDS ORDERED: D5% in Water 1,000 ML IVC PRN (04:20)
[2020-06-05] MEDS ORDERED: Naloxone 0.4 MG/ML INJ IVP PRN (04:38)
[2020-06-05] MEDS: Insulin LISPRO 300 UNITS/3 ML VIAL SUBQ SCH ×3 (06:40→19:09)
[2020-06-05] MEDS: Budesonide/Formoterol 160/4.5 1 PUFF INH IH SCH ×2 (07:46→20:17)
[2020-06-05 09:38] LABS: Basophils # 0.1 K/mcL (0.0-0.2); Basophils % 0.4 %; Eosinophils # 0.3 K/mcL (0.0-0.6); Eosinophils % 1.8 %; Hematocrit 31.4 % (37.5-50.1); Hemoglobin 9.4 g/dL (12.9-16.9); Immature Granulocytes % 0.5 % (0-4); Lymphocytes # 2.1 K/mcL (0.6-4.6); Lymphocytes % 15.2 %; Mean Corpuscular HGB Conc 29.9 g/dL (31.6-35.5); Mean Corpuscular Hemoglobin 23.4 pg (28.0-33.3); Mean Corpuscular Volume 78.3 fL (83.0-100.0); Mean Platelet Volume 10.7 fL (9.4-12.4); Monocytes # 1.6 K/mcL (0.0-1.3); Monocytes % 11.4 %; Neutrophils # 9.7 K/mcL (1.6-8.9); Platelet Count 314 K/mcL (140-400); Red Blood Count 4.01 M/mcL (4.19-5.50); Segmented Neutrophils % 70.7 %; White Blood Count 13.8 K/mcL (4.3-11.1)
[2020-06-05] MEDS: Aspirin Enteric Coated 81 MG Tablet PO SCH (09:49)
[2020-06-05] MEDS: Gabapentin 300 MG CAPSULE PO SCH ×2 (09:49→21:31)
[2020-06-05] MEDS: Multivit/Ca/Min/Fe/FA 1 TAB TABLET PO SCH (09:49)
[2020-06-05] MEDS: DilTIAZem CD (24hr) 120 MG CAP.ER.24H PO SCH (09:49)
[2020-06-05] MEDS: Isosorbide MONOnitrate (24 HR) 60 MG TAB.ER.24H PO SCH (09:49)
[2020-06-05] MEDS: Metoprolol 100 MG TABLET PO SCH ×2 (09:49→21:31)
[2020-06-05 09:52] LABS: Alanine Aminotransferase 30 Units/L (7-52); Albumin 3.4 g/dL (3.5-5.7); Albumin/Globulin Ratio 1.2 (1.1-2.2); Alkaline Phosphatase 81 Units/L (34-104); Aspartate Amino Transferase 24 Units/L (13-39); BUN/Creatinine Ratio 19 (6-26); Bilirubin,Total 0.3 mg/dL (0.3-1.0); Blood Urea Nitrogen 11 mg/dL (8-23); Calcium 8.6 mg/dL (8.6-10.3); Carbon Dioxide 27 mEq/L (23-29); Chloride 104 mEq/L (98-107); Globulin 2.9 g/dL (2.4-3.5); Glucose 74 mg/dL (70-105); Osmolality,Calculated 286 (280-300); Potassium 4.3 mEq/L (3.5-5.1); Sodium 139 mEq/L (136-145); Total Protein 6.3 g/dL (6.4-8.9); eGFR For African Americans > 60 (> 60); eGFR For Non-African Americans > 60 (> 60)
[2020-06-05] MEDS: 0.9 % Sodium Chloride 1,000 ML IVC SCH (12:36)
[2020-06-05] MEDS ORDERED: Chloraseptic Spray 177 ML BOTTLE MM PRN (15:10)
[2020-06-05] MEDS: Acetaminophen IV 1,000 MG/100 ML BAG IVPB SCH (17:40)
[2020-06-05] MEDS ORDERED: Ketorolac 15 MG/ML VIAL IVP PRN (21:10)
[2020-06-06] MEDS: Acetaminophen IV 1,000 MG/100 ML BAG IVPB SCH ×4 (00:22→17:22)
[2020-06-06] MEDS: Insulin LISPRO 300 UNITS/3 ML VIAL SUBQ SCH ×4 (00:25→17:17)
[2020-06-06] MEDS: 0.9 % Sodium Chloride 1,000 ML IVC SCH ×2 (00:26→10:48)
[2020-06-06 07:25] LABS: Basophils % 0.6 %; Eosinophils # 0.5 K/mcL (0.0-0.6); Eosinophils % 7.2 %; Hematocrit 31.2 % (37.5-50.1); Hemoglobin 9.3 g/dL (12.9-16.9); Immature Granulocytes % 0.3 % (0-4); Lymphocytes # 1.4 K/mcL (0.6-4.6); Lymphocytes % 21.2 %; Mean Corpuscular HGB Conc 29.8 g/dL (31.6-35.5); Mean Corpuscular Hemoglobin 23.9 pg (28.0-33.3); Mean Corpuscular Volume 80.2 fL (83.0-100.0); Monocytes # 0.8 K/mcL (0.0-1.3); Monocytes % 11.8 %; Platelet Count 294 K/mcL (140-400); Red Blood Count 3.89 M/mcL (4.19-5.50); Red Cell Distribution Width 18.9 % (11.5-14.5); Segmented Neutrophils % 58.9 %
[2020-06-06 07:34] LABS: White Blood Count 6.8 K/mcL (4.3-11.1)
[2020-06-06 07:42] LABS: BUN/Creatinine Ratio 19 (6-26); Blood Urea Nitrogen 11 mg/dL (8-23); Calcium 8.5 mg/dL (8.6-10.3); Carbon Dioxide 27 mEq/L (23-29); Chloride 104 mEq/L (98-107); Glucose 103 mg/dL (70-105); Magnesium 1.7 mg/dL (1.6-2.6); Osmolality,Calculated 286 (280-300); Phosphorous 4.5 mg/dL (2.7-4.5); Potassium 4.3 mEq/L (3.5-5.1); Sodium 138 mEq/L (136-145); eGFR For African Americans > 60 (> 60); eGFR For Non-African Americans > 60 (> 60)
[2020-06-06] MEDS: Budesonide/Formoterol 160/4.5 1 PUFF INH IH SCH ×2 (08:02→19:57)
[2020-06-06] MEDS: Gabapentin 300 MG CAPSULE PO SCH ×2 (08:23→21:16)
[2020-06-06] MEDS: Isosorbide MONOnitrate (24 HR) 60 MG TAB.ER.24H PO SCH (08:23)
[2020-06-06] MEDS: DilTIAZem CD (24hr) 120 MG CAP.ER.24H PO SCH (08:23)
[2020-06-06] MEDS: Multivit/Ca/Min/Fe/FA 1 TAB TABLET PO SCH (08:23)
[2020-06-06] MEDS: Metoprolol 100 MG TABLET PO SCH ×2 (08:23→21:16)
[2020-06-06] MEDS: Aspirin Enteric Coated 81 MG Tablet PO SCH (08:23)
[2020-06-06] MEDS ORDERED: Calcium Gluconate 1gm/50mL 1 GM/50 ML BAG IVPB SCH (09:00)
[2020-06-06] MEDS: Apixaban 5 MG TABLET PO SCH ×2 (09:56→21:16)
[2020-06-06] MEDS ORDERED: Acetaminophen 325 MG TABLET PO PRN (18:10)
[2020-06-06] MEDS ORDERED: Melatonin 3 MG TABLET PO PRN (20:50)
[2020-06-07 03:15] LABS: Basophils # 0.1 K/mcL (0.0-0.2); Basophils % 0.7 %; Eosinophils # 0.4 K/mcL (0.0-0.6); Eosinophils % 5.7 %; Hematocrit 31.1 % (37.5-50.1); Hemoglobin 9.4 g/dL (12.9-16.9); Immature Granulocytes % 0.4 % (0-4); Lymphocytes # 1.7 K/mcL (0.6-4.6); Lymphocytes % 23.4 %; Mean Corpuscular HGB Conc 30.2 g/dL (31.6-35.5); Mean Corpuscular Hemoglobin 23.9 pg (28.0-33.3); Mean Corpuscular Volume 78.9 fL (83.0-100.0); Mean Platelet Volume 11.5 fL (9.4-12.4); Monocytes # 0.9 K/mcL (0.0-1.3); Monocytes % 11.9 %; Neutrophils # 4.2 K/mcL (1.6-8.9); Platelet Count 322 K/mcL (140-400); Red Blood Count 3.94 M/mcL (4.19-5.50); Red Cell Distribution Width 18.6 % (11.5-14.5); Segmented Neutrophils % 57.9 %; White Blood Count 7.2 K/mcL (4.3-11.1)
[2020-06-07 03:33] LABS: BUN/Creatinine Ratio 13 (6-26); Blood Urea Nitrogen 7 mg/dL (8-23); Calcium 8.8 mg/dL (8.6-10.3); Carbon Dioxide 26 mEq/L (23-29); Chloride 104 mEq/L (98-107); Glucose 105 mg/dL (70-105); Magnesium 1.5 mg/dL (1.6-2.6); Osmolality,Calculated 284 (280-300); Phosphorous 4.5 mg/dL (2.7-4.5); Potassium 3.7 mEq/L (3.5-5.1); Sodium 138 mEq/L (136-145); eGFR For African Americans > 60 (> 60); eGFR For Non-African Americans > 60 (> 60)
[2020-06-07 07:00] VITALS: BP 169/97
[2020-06-07 07:22] LABS: Estimated Average Glucose 174 mg/dl; Hemoglobin A1C 7.7 %
[2020-06-07] MEDS: Insulin LISPRO 300 UNITS/3 ML VIAL SUBQ SCH ×2 (07:39→12:31)
[2020-06-07] MEDS: Budesonide/Formoterol 160/4.5 1 PUFF INH IH SCH (08:04)
[2020-06-07] MEDS: Apixaban 5 MG TABLET PO SCH (09:18)
[2020-06-07] MEDS: Metoprolol 100 MG TABLET PO SCH (09:18)
[2020-06-07] MEDS: Isosorbide MONOnitrate (24 HR) 60 MG TAB.ER.24H PO SCH (09:18)
[2020-06-07] MEDS: Gabapentin 300 MG CAPSULE PO SCH (09:18)
[2020-06-07] MEDS: Aspirin Enteric Coated 81 MG Tablet PO SCH (09:18)
[2020-06-07] MEDS: DilTIAZem CD (24hr) 120 MG CAP.ER.24H PO SCH (09:18)
[2020-06-07] MEDS: Multivit/Ca/Min/Fe/FA 1 TAB TABLET PO SCH (09:19)
== END 2020-06-07 14:21 | disposition home or self-care (01) | DRG 389 ==
LOC: 3ANU 21:49 → EMEROOARM 21:49 → SUATTDRO 06-05 01:46 → 3ANU 06-05 02:21
PROVIDERS: ADMIT Family Medicine; ATTEND Internal Medicine

== ENCOUNTER 2020-07-29 22:09 | Observation (INO) ==
[2020-07-29] MEDS ORDERED: *HR* FentaNYL (PF) 100 MCG/2 ML VIAL IVP ONE (22:36)
[2020-07-29] MEDS ORDERED: Ondansetron 4 MG/2 ML VIAL IVP ONE (22:36)
[2020-07-29] MEDS ORDERED: Isovue-370 500 ML BOTTLE IVP ONE (22:36)
[2020-07-29] MEDS ORDERED: 0.9 % Sodium Chloride 1,000 ML IVC ONE (22:36)
[2020-07-29 22:48] LABS: Basophils # 0.1 K/mcL (0.0-0.2); Basophils % 0.3 %; Eosinophils % 0.2 %; Hematocrit 38.2 % (37.5-50.1); Hemoglobin 11.6 g/dL (12.9-16.9); Immature Granulocytes % 0.3 % (0-4); Lymphocytes # 1.5 K/mcL (0.6-4.6); Lymphocytes % 10.7 %; Mean Corpuscular HGB Conc 30.4 g/dL (31.6-35.5); Mean Corpuscular Hemoglobin 23.5 pg (28.0-33.3); Mean Corpuscular Volume 77.5 fL (83.0-100.0); Mean Platelet Volume 10.7 fL (9.4-12.4); Monocytes # 0.9 K/mcL (0.0-1.3); Monocytes % 6.6 %; Neutrophils # 11.7 K/mcL (1.6-8.9); Platelet Count 309 K/mcL (140-400); Red Blood Count 4.93 M/mcL (4.19-5.50); Red Cell Distribution Width 15.4 % (11.5-14.5); Segmented Neutrophils % 81.9 %; White Blood Count 14.3 K/mcL (4.3-11.1)
[2020-07-29 23:00] LABS: Bilirubin,Urine Negative (Negative); Blood,Urine Negative (Negative); Clarity,Urine Clear (Clear); Color,Urine Yellow (Yellow); Glucose,Urine (UA) Normal (Normal); Ketones,Urine Negative (Negative); Leukocyte Esterase,Urine Negative (Negative); Mucus,Urine Few per lpf (None-Few); Nitrite,Urine Negative (Negative); Protein,Urine 100 mg/dL (Neg-Trace); RBC,Urine 0-3 per hpf (0-3); Specific Gravity,Urine > 1.030 (1.010-1.025); Squamous Epithelial Cell,Urine Few per hpf (None-Few); Urobilinogen,Urine Normal (Normal); WBC,Urine 0-3 per hpf (0-3)
[2020-07-29 23:07] LABS: Alanine Aminotransferase 36 Units/L (7-52); Albumin 4.6 g/dL (3.5-5.7); Albumin/Globulin Ratio 1.2 (1.1-2.2); Alkaline Phosphatase 95 Units/L (34-104); Aspartate Amino Transferase 29 Units/L (13-39); BUN/Creatinine Ratio 12 (6-26); Bilirubin,Direct 0.1 mg/dL (0.0-0.2); Bilirubin,Indirect 0.2 mg/dL (0.0-1.0); Bilirubin,Total 0.3 mg/dL (0.3-1.0); Blood Urea Nitrogen 9 mg/dL (8-23); Calcium 9.8 mg/dL (8.6-10.3); Chloride 101 mEq/L (98-107); Globulin 3.7 g/dL (2.4-3.5); Glucose 190 mg/dL (70-105); Osmolality,Calculated 286 (280-300); Potassium 3.9 mEq/L (3.5-5.1); Sodium 136 mEq/L (136-145); Total Protein 8.3 g/dL (6.4-8.9); eGFR For African Americans > 60 (> 60); eGFR For Non-African Americans > 60 (> 60)
[2020-07-29] MEDS ORDERED: *HR* HYDROmorphone (PF) 1 MG/ML SYRINGE IVP ONE (23:52)
[2020-07-30] MEDS ORDERED: Tetracaine/Benzocaine/Butamben 1 SPRAY AEROSOL MM ONE (01:02)
[2020-07-30 01:09] LABS: Carbon Dioxide 23 mEq/L (23-29)
[2020-07-30] MEDS ORDERED: Melatonin 3 MG TABLET PO PRN (02:25)
[2020-07-30] MEDS ORDERED: Naloxone 0.4 MG/ML INJ IVP PRN (02:25)
[2020-07-30] MEDS ORDERED: Ondansetron 4 MG/2 ML VIAL IVP PRN (02:25)
[2020-07-30] MEDS ORDERED: *HR* Dextrose 50 % in Water (Vial) 50 ML VIAL IVP PRN (02:27)
[2020-07-30] MEDS ORDERED: Dextrose Gel 15 GM/37.5 ML TUBE PO PRN ×2 (02:27)
[2020-07-30] MEDS ORDERED: D5% in Water 1,000 ML IVC PRN (02:27)
[2020-07-30] MEDS: 0.9 % Sodium Chloride 1,000 ML IVC SCH ×2 (03:05→11:24)
[2020-07-30] MEDS: *HR* HYDROmorphone (PF) 1 MG/ML SYRINGE IVP PRN ×2 (03:06→08:58)
[2020-07-30 03:33] LABS: Basophils % 0.3 %; Hematocrit 34.6 % (37.5-50.1); Hemoglobin 10.6 g/dL (12.9-16.9); Immature Granulocytes % 0.4 % (0-4); Lymphocytes # 1.3 K/mcL (0.6-4.6); Mean Corpuscular HGB Conc 30.6 g/dL (31.6-35.5); Mean Corpuscular Hemoglobin 23.9 pg (28.0-33.3); Mean Corpuscular Volume 78.1 fL (83.0-100.0); Mean Platelet Volume 10.8 fL (9.4-12.4); Monocytes # 0.8 K/mcL (0.0-1.3); Monocytes % 6.4 %; Neutrophils # 10.7 K/mcL (1.6-8.9); Platelet Count 317 K/mcL (140-400); Red Blood Count 4.43 M/mcL (4.19-5.50); Red Cell Distribution Width 15.2 % (11.5-14.5); Segmented Neutrophils % 82.9 %; White Blood Count 12.9 K/mcL (4.3-11.1)
[2020-07-30 03:53] LABS: BUN/Creatinine Ratio 13 (6-26); Blood Urea Nitrogen 8 mg/dL (8-23); Calcium 9.1 mg/dL (8.6-10.3); Carbon Dioxide 23 mEq/L (23-29); Chloride 103 mEq/L (98-107); Glucose 187 mg/dL (70-105); Magnesium 1.7 mg/dL (1.6-2.6); Osmolality,Calculated 285 (280-300); Phosphorous 3.5 mg/dL (2.7-4.5); Sodium 136 mEq/L (136-145); eGFR For African Americans > 60 (> 60); eGFR For Non-African Americans > 60 (> 60)
[2020-07-30] MEDS: Insulin LISPRO 300 UNITS/3 ML VIAL SUBQ SCH ×3 (05:53→16:11)
[2020-07-30] MEDS: *HR* Enoxaparin 100 MG/ML SYRINGE SQ SCH ×2 (08:59→22:23)
[2020-07-30] MEDS: Multivit/Ca/Min/Fe/FA 1 TAB TABLET PO SCH (11:25)
[2020-07-30] MEDS ORDERED: Acetaminophen IV 1,000 MG/100 ML BAG IVPB ONE (15:08)
[2020-07-30] MEDS: *HR* Metoprolol 5 MG/5 ML VIAL IVP SCH (18:57)
[2020-07-30] MEDS: Budesonide/Formoterol 160/4.5 1 PUFF INH IH SCH (22:01)
[2020-07-30] MEDS ORDERED: Chloraseptic Spray 177 ML BOTTLE MM PRN (23:43)
[2020-07-31] MEDS: Insulin LISPRO 300 UNITS/3 ML VIAL SUBQ SCH ×4 (00:48→16:42)
[2020-07-31] MEDS ORDERED: Morphine Sulfate 2 MG/ML SYRINGE IVP ONE (01:55)
[2020-07-31] MEDS: *HR* Metoprolol 5 MG/5 ML VIAL IVP SCH ×3 (02:05→16:42)
[2020-07-31 02:10] LABS: Hematocrit 33.5 % (37.5-50.1); Hemoglobin 9.9 g/dL (12.9-16.9); Mean Corpuscular HGB Conc 29.6 g/dL (31.6-35.5); Mean Corpuscular Hemoglobin 23.2 pg (28.0-33.3); Mean Corpuscular Volume 78.5 fL (83.0-100.0); Mean Platelet Volume 11.1 fL (9.4-12.4); Platelet Count 263 K/mcL (140-400); Red Blood Count 4.27 M/mcL (4.19-5.50); Red Cell Distribution Width 15.4 % (11.5-14.5); White Blood Count 7.4 K/mcL (4.3-11.1)
[2020-07-31 02:30] LABS: BUN/Creatinine Ratio 15 (6-26); Blood Urea Nitrogen 8 mg/dL (8-23); Calcium 8.3 mg/dL (8.6-10.3); Carbon Dioxide 27 mEq/L (23-29); Chloride 106 mEq/L (98-107); Glucose 103 mg/dL (70-105); Magnesium 2.1 mg/dL (1.6-2.6); Osmolality,Calculated 287 (280-300); Phosphorous 2.9 mg/dL (2.7-4.5); Potassium 3.7 mEq/L (3.5-5.1); Sodium 139 mEq/L (136-145); eGFR For African Americans > 60 (> 60); eGFR For Non-African Americans > 60 (> 60)
[2020-07-31] MEDS: Budesonide/Formoterol 160/4.5 1 PUFF INH IH SCH ×2 (08:13→22:16)
[2020-07-31] MEDS: *HR* Enoxaparin 100 MG/ML SYRINGE SQ SCH (10:15)
[2020-07-31] MEDS: Multivit/Ca/Min/Fe/FA 1 TAB TABLET PO SCH (10:15)
[2020-07-31] MEDS: Calcium Gluconate 1gm/50mL 1 GM/50 ML BAG IVPB SCH ×2 (10:15→10:26)
[2020-07-31] MEDS ORDERED: Nitroglycerin 0.4 MG TAB.SUBL SL PRN (16:59)
[2020-07-31] MEDS ORDERED: Melatonin 3 MG TABLET PO PRN (17:08)
[2020-07-31] MEDS: DilTIAZem CD (24hr) 120 MG CAP.ER.24H PO SCH (19:33)
[2020-07-31] MEDS ORDERED: Insulin LISPRO 300 UNITS/3 ML VIAL SUBQ SCH (21:00)
[2020-07-31] MEDS: Apixaban 5 MG TABLET PO SCH (21:07)
[2020-07-31] MEDS: Gabapentin 300 MG CAPSULE PO SCH (21:07)
[2020-07-31] MEDS ORDERED: Acetaminophen 325 MG TABLET PO ONE (22:46)
[2020-08-01 00:37] LABS: Hematocrit 33.6 % (37.5-50.1); Mean Corpuscular HGB Conc 29.8 g/dL (31.6-35.5); Mean Corpuscular Hemoglobin 23.2 pg (28.0-33.3); Mean Platelet Volume 11.6 fL (9.4-12.4); Platelet Count 291 K/mcL (140-400); Red Blood Count 4.31 M/mcL (4.19-5.50); Red Cell Distribution Width 15.2 % (11.5-14.5); White Blood Count 8.4 K/mcL (4.3-11.1)
[2020-08-01 00:57] LABS: BUN/Creatinine Ratio 11 (6-26); Blood Urea Nitrogen 7 mg/dL (8-23); Calcium 8.8 mg/dL (8.6-10.3); Carbon Dioxide 27 mEq/L (23-29); Chloride 102 mEq/L (98-107); Glucose 114 mg/dL (70-105); Magnesium 1.9 mg/dL (1.6-2.6); Osmolality,Calculated 285 (280-300); Phosphorous 4.2 mg/dL (2.7-4.5); Potassium 3.7 mEq/L (3.5-5.1); Sodium 138 mEq/L (136-145); eGFR For African Americans > 60 (> 60); eGFR For Non-African Americans > 60 (> 60)
[2020-08-01] MEDS: Insulin LISPRO 300 UNITS/3 ML VIAL SUBQ SCH (00:59)
[2020-08-01] MEDS: *HR* Metoprolol 5 MG/5 ML VIAL IVP SCH ×2 (01:24→10:15)
[2020-08-01 06:57] VITALS: BP 137/77
[2020-08-01] MEDS ORDERED: Insulin LISPRO 300 UNITS/3 ML VIAL SUBQ SCH (07:30)
[2020-08-01] MEDS: Budesonide/Formoterol 160/4.5 1 PUFF INH IH SCH (08:08)
[2020-08-01] MEDS ORDERED: Isosorbide MONOnitrate (24 HR) 60 MG TAB.ER.24H PO SCH (09:00)
[2020-08-01] MEDS ORDERED: VIT K PO SCH (09:00)
[2020-08-01] MEDS ORDERED: Multivit/Ca/Min/Fe/FA 1 TAB TABLET PO SCH (09:00)
[2020-08-01] MEDS ORDERED: LYCOP PO SCH (09:00)
[2020-08-01] MEDS ORDERED: MULTIVIT MIN PO SCH (09:00)
[2020-08-01] MEDS ORDERED: FOLIC PO SCH (09:00)
[2020-08-01] MEDS ORDERED: Aspirin Enteric Coated 81 MG Tablet PO SCH (09:00)
[2020-08-01] MEDS ORDERED: DilTIAZem CD (24hr) 120 MG CAP.ER.24H PO SCH (09:00)
[2020-08-01] MEDS ORDERED: [UNRECOGNIZED DRUG - OTHER] PO SCH (09:00)
[2020-08-01] MEDS: DilTIAZem CD (24hr) 120 MG CAP.ER.24H PO SCH (10:10)
[2020-08-01] MEDS: Gabapentin 300 MG CAPSULE PO SCH (10:10)
[2020-08-01] MEDS: Multivit/Ca/Min/Fe/FA 1 TAB TABLET PO SCH (10:11)
[2020-08-01] MEDS: Apixaban 5 MG TABLET PO SCH (10:11)
== END 2020-08-01 12:13 | disposition home or self-care (01) ==
LOC: 3ANU 22:09 → EMEROOARM 22:09 → SUATTDRO 07-30 01:05 → 3ANU 07-30 02:00
PROVIDERS: ADMIT Internal Medicine; ATTEND Internal Medicine

== ENCOUNTER 2020-09-24 02:20 | Observation (INO) ==
[2020-09-24] MEDS ORDERED: Isovue-370 500 ML BOTTLE IVP ONE (02:25)
[2020-09-24] MEDS ORDERED: 0.9 % Sodium Chloride 1,000 ML IVC ONE (02:43)
[2020-09-24] MEDS ORDERED: Ondansetron 4 MG/2 ML VIAL IVP ONE ×2 (02:43→05:23)
[2020-09-24] MEDS ORDERED: *HR* FentaNYL (PF) 100 MCG/2 ML VIAL IVP ONE (02:43)
[2020-09-24 03:16] LABS: Basophils % 0.3 %; Eosinophils # 0.1 K/mcL (0.0-0.6); Eosinophils % 0.6 %; Hematocrit 36.7 % (37.5-50.1); Immature Granulocytes % 0.3 % (0-4); Lymphocytes # 1.2 K/mcL (0.6-4.6); Lymphocytes % 9.8 %; Mean Corpuscular Hemoglobin 23.3 pg (28.0-33.3); Mean Corpuscular Volume 77.6 fL (83.0-100.0); Mean Platelet Volume 11.5 fL (9.4-12.4); Monocytes % 7.6 %; Neutrophils # 10.2 K/mcL (1.6-8.9); Platelet Count 281 K/mcL (140-400); Red Blood Count 4.73 M/mcL (4.19-5.50); Segmented Neutrophils % 81.4 %; White Blood Count 12.5 K/mcL (4.3-11.1)
[2020-09-24 03:31] LABS: Alanine Aminotransferase 55 Units/L (7-52); Albumin/Globulin Ratio 1.3 (1.1-2.2); Alkaline Phosphatase 96 Units/L (34-104); Aspartate Amino Transferase 39 Units/L (13-39); BUN/Creatinine Ratio 13 (6-26); Bilirubin,Total 0.3 mg/dL (0.3-1.0); Blood Urea Nitrogen 9 mg/dL (8-23); Carbon Dioxide 24 mEq/L (23-29); Chloride 104 mEq/L (98-107); Globulin 3.2 g/dL (2.4-3.5); Glucose 172 mg/dL (70-105); Lipase 21 Units/L (11-82); Osmolality,Calculated 285 (280-300); Sodium 136 mEq/L (136-145); Total Protein 7.2 g/dL (6.4-8.9); eGFR For African Americans > 60 (> 60); eGFR For Non-African Americans > 60 (> 60)
[2020-09-24] MEDS ORDERED: *HR* HYDROmorphone (PF) 1 MG/ML SYRINGE IVP ONE ×3 (03:31→06:41)
[2020-09-24] MEDS ORDERED: Naloxone 0.4 MG/ML INJ IVP PRN (05:54)
[2020-09-24] MEDS ORDERED: *HR* Promethazine 25 MG/ML VIAL IM PRN (05:54)
[2020-09-24] MEDS ORDERED: Ondansetron 4 MG/2 ML VIAL IVP PRN (05:54)
[2020-09-24] MEDS ORDERED: Dextrose Gel 15 GM/37.5 ML TUBE PO PRN ×2 (05:57)
[2020-09-24] MEDS ORDERED: *HR* Dextrose 50 % in Water (Vial) 50 ML VIAL IVP PRN (05:57)
[2020-09-24] MEDS ORDERED: D5% in Water 1,000 ML IVC PRN (05:57)
[2020-09-24] MEDS: Insulin LISPRO 300 UNITS/3 ML VIAL SUBQ SCH ×3 (09:10→19:23)
[2020-09-24] MEDS: Ringers Solution, Lactated 1,000 ML IVC SCH (09:36)
[2020-09-24] MEDS ORDERED: *HR* Metoprolol 5 MG/5 ML VIAL IVP PRN (12:25)
[2020-09-24] MEDS: Piperacillin/Tazobactam 3.375 GM in 0.9 % Sodium Chloride Mini Bag 100 ML IVPB SCH (15:04)
[2020-09-24] MEDS: *HR* Enoxaparin 100 MG/ML SYRINGE SQ SCH (19:30)
[2020-09-24] MEDS: Budesonide/Formoterol 160/4.5 1 PUFF INH IH SCH (19:36)
[2020-09-25] MEDS: Ringers Solution, Lactated 1,000 ML IVC SCH ×2 (00:33→14:44)
[2020-09-25] MEDS: Piperacillin/Tazobactam 3.375 GM in 0.9 % Sodium Chloride Mini Bag 100 ML IVPB SCH ×2 (00:34→08:40)
[2020-09-25] MEDS: Insulin LISPRO 300 UNITS/3 ML VIAL SUBQ SCH ×4 (01:14→17:48)
[2020-09-25 05:16] LABS: Basophils % 0.6 %; Eosinophils # 0.2 K/mcL (0.0-0.6); Eosinophils % 2.2 %; Hematocrit 33.9 % (37.5-50.1); Hemoglobin 10.1 g/dL (12.9-16.9); Immature Granulocytes % 0.7 % (0-4); Lymphocytes # 1.5 K/mcL (0.6-4.6); Lymphocytes % 20.9 %; Mean Corpuscular HGB Conc 29.8 g/dL (31.6-35.5); Mean Corpuscular Hemoglobin 22.9 pg (28.0-33.3); Mean Corpuscular Volume 76.9 fL (83.0-100.0); Mean Platelet Volume 10.7 fL (9.4-12.4); Monocytes # 0.7 K/mcL (0.0-1.3); Monocytes % 9.5 %; Neutrophils # 4.7 K/mcL (1.6-8.9); Platelet Count 235 K/mcL (140-400); Red Blood Count 4.41 M/mcL (4.19-5.50); Red Cell Distribution Width 16.2 % (11.5-14.5); Segmented Neutrophils % 66.1 %; White Blood Count 7.1 K/mcL (4.3-11.1)
[2020-09-25 05:35] LABS: BUN/Creatinine Ratio 15 (6-26); Blood Urea Nitrogen 9 mg/dL (8-23); Calcium 8.4 mg/dL (8.6-10.3); Carbon Dioxide 30 mEq/L (23-29); Chloride 102 mEq/L (98-107); Glucose 104 mg/dL (70-105); Magnesium 1.6 mg/dL (1.6-2.6); Osmolality,Calculated 283 (280-300); Potassium 3.6 mEq/L (3.5-5.1); Sodium 137 mEq/L (136-145); eGFR For African Americans > 60 (> 60); eGFR For Non-African Americans > 60 (> 60)
[2020-09-25] MEDS: *HR* Enoxaparin 100 MG/ML SYRINGE SQ SCH ×2 (06:14→17:53)
[2020-09-25] MEDS: Budesonide/Formoterol 160/4.5 1 PUFF INH IH SCH ×2 (08:46→19:41)
[2020-09-26] MEDS: Ringers Solution, Lactated 1,000 ML IVC SCH (00:49)
[2020-09-26] MEDS: Insulin LISPRO 300 UNITS/3 ML VIAL SUBQ SCH (00:52)
[2020-09-26 06:26] LABS: Hematocrit 34.1 % (37.5-50.1); Hemoglobin 10.1 g/dL (12.9-16.9); Mean Corpuscular HGB Conc 29.6 g/dL (31.6-35.5); Mean Corpuscular Hemoglobin 23.1 pg (28.0-33.3); Mean Corpuscular Volume 77.9 fL (83.0-100.0); Mean Platelet Volume 11.4 fL (9.4-12.4); Platelet Count 257 K/mcL (140-400); Red Blood Count 4.38 M/mcL (4.19-5.50); Red Cell Distribution Width 16.2 % (11.5-14.5); White Blood Count 5.7 K/mcL (4.3-11.1)
[2020-09-26] MEDS: *HR* Enoxaparin 100 MG/ML SYRINGE SQ SCH (06:39)
[2020-09-26 06:45] LABS: BUN/Creatinine Ratio 7 (6-26); Blood Urea Nitrogen 4 mg/dL (8-23); Calcium 8.9 mg/dL (8.6-10.3); Carbon Dioxide 31 mEq/L (23-29); Chloride 103 mEq/L (98-107); Glucose 112 mg/dL (70-105); Magnesium 1.8 mg/dL (1.6-2.6); Osmolality,Calculated 284 (280-300); Sodium 138 mEq/L (136-145); eGFR For African Americans > 60 (> 60); eGFR For Non-African Americans > 60 (> 60)
[2020-09-26 06:47] VITALS: BP 149/81
[2020-09-26] MEDS ORDERED: Insulin LISPRO 300 UNITS/3 ML VIAL SUBQ SCH ×2 (07:30→21:00)
[2020-09-26] MEDS: Budesonide/Formoterol 160/4.5 1 PUFF INH IH SCH (07:40)
== END 2020-09-26 10:36 | disposition home or self-care (01) ==
LOC: EMEROOARM 02:20 → CDU 02:20 → SUATTDRO 05:59 → CDU 06:22 → 3ANU 17:58
PROVIDERS: ADMIT Internal Medicine; ATTEND Internal Medicine

== ENCOUNTER 2020-10-05 20:51 | Inpatient (IN) ==
[2020-10-05] MEDS ORDERED: Isovue-370 500 ML BOTTLE IVP ONE (21:23)
[2020-10-05] MEDS ORDERED: *HR* HYDROmorphone (PF) 1 MG/ML SYRINGE IVP ONE ×2 (21:24→22:38)
[2020-10-05] MEDS ORDERED: 0.9 % Sodium Chloride 1,000 ML IVC ONE (21:25)
[2020-10-05] MEDS ORDERED: Ondansetron 4 MG/2 ML VIAL IVP ONE ×2 (21:25→22:38)
[2020-10-05 21:45] LABS: Basophils # 0.1 K/mcL (0.0-0.2); Basophils % 0.5 %; Eosinophils # 0.1 K/mcL (0.0-0.6); Eosinophils % 0.6 %; Hemoglobin 11.3 g/dL (12.9-16.9); Immature Granulocytes % 0.5 % (0-4); Lymphocytes # 1.4 K/mcL (0.6-4.6); Lymphocytes % 11.1 %; Mean Corpuscular HGB Conc 29.7 g/dL (31.6-35.5); Mean Corpuscular Volume 77.2 fL (83.0-100.0); Mean Platelet Volume 11.5 fL (9.4-12.4); Monocytes # 0.9 K/mcL (0.0-1.3); Monocytes % 7.3 %; Neutrophils # 10.2 K/mcL (1.6-8.9); Platelet Count 319 K/mcL (140-400); Red Blood Count 4.92 M/mcL (4.19-5.50); Red Cell Distribution Width 16.7 % (11.5-14.5); White Blood Count 12.8 K/mcL (4.3-11.1)
[2020-10-05 21:56] LABS: INR 1.3; Prothrombin Time 14.6 Seconds (9.4-12.1)
[2020-10-05 21:59] LABS: Activated Partial Thrombo Time 27.2 Seconds (26.0-36.0)
[2020-10-05 22:06] LABS: Alanine Aminotransferase 50 Units/L (7-52); Albumin 4.3 g/dL (3.5-5.7); Albumin/Globulin Ratio 1.2 (1.1-2.2); Alkaline Phosphatase 98 Units/L (34-104); Aspartate Amino Transferase 37 Units/L (13-39); BUN/Creatinine Ratio 16 (6-26); Bilirubin,Direct 0.1 mg/dL (0.0-0.2); Bilirubin,Indirect 0.2 mg/dL (0.0-1.0); Bilirubin,Total 0.3 mg/dL (0.3-1.0); Blood Urea Nitrogen 11 mg/dL (8-23); Calcium 9.7 mg/dL (8.6-10.3); Carbon Dioxide 23 mEq/L (23-29); Chloride 106 mEq/L (98-107); Globulin 3.5 g/dL (2.4-3.5); Glucose 178 mg/dL (70-105); Lipase 25 Units/L (11-82); Osmolality,Calculated 292 (280-300); Potassium 3.9 mEq/L (3.5-5.1); Sodium 139 mEq/L (136-145); Total Protein 7.8 g/dL (6.4-8.9); eGFR For African Americans > 60 (> 60); eGFR For Non-African Americans > 60 (> 60)
[2020-10-06] MEDS ORDERED: *HR* HYDROmorphone (PF) 1 MG/ML SYRINGE IVP ONE (01:58)
[2020-10-06] MEDS ORDERED: Naloxone 0.4 MG/ML INJ IVP PRN (01:59)
[2020-10-06] MEDS ORDERED: D5% in Water 1,000 ML IVC PRN (02:12)
[2020-10-06] MEDS ORDERED: Dextrose Gel 15 GM/37.5 ML TUBE PO PRN ×2 (02:12)
[2020-10-06] MEDS ORDERED: *HR* Dextrose 50 % in Water (Vial) 50 ML VIAL IVP PRN (02:12)
[2020-10-06] MEDS ORDERED: *HR* Metoprolol 5 MG/5 ML VIAL IVP PRN (02:13)
[2020-10-06] MEDS ORDERED: DilTIAZem 50 MG/50 ML IV.SOLN IVC SCH (02:15)
[2020-10-06] MEDS: 0.9 % Sodium Chloride 1,000 ML IVC SCH ×2 (02:37→14:23)
[2020-10-06 02:57] LABS: Basophils % 0.3 %; Hematocrit 32.9 % (37.5-50.1); Hemoglobin 10.2 g/dL (12.9-16.9); Immature Granulocytes % 0.4 % (0-4); Lymphocytes # 1.2 K/mcL (0.6-4.6); Lymphocytes % 10.1 %; Mean Corpuscular Hemoglobin 23.8 pg (28.0-33.3); Mean Corpuscular Volume 76.9 fL (83.0-100.0); Monocytes # 0.7 K/mcL (0.0-1.3); Monocytes % 5.6 %; Neutrophils # 9.6 K/mcL (1.6-8.9); Platelet Count 274 K/mcL (140-400); Red Blood Count 4.28 M/mcL (4.19-5.50); Red Cell Distribution Width 16.7 % (11.5-14.5); Segmented Neutrophils % 83.6 %; White Blood Count 11.5 K/mcL (4.3-11.1)
[2020-10-06 03:19] LABS: BUN/Creatinine Ratio 15 (6-26); Blood Urea Nitrogen 9 mg/dL (8-23); Carbon Dioxide 23 mEq/L (23-29); Chloride 106 mEq/L (98-107); Glucose 171 mg/dL (70-105); Osmolality,Calculated 289 (280-300); Potassium 4.1 mEq/L (3.5-5.1); Sodium 138 mEq/L (136-145); eGFR For African Americans > 60 (> 60); eGFR For Non-African Americans > 60 (> 60)
[2020-10-06] MEDS: *HR* Enoxaparin 100 MG/ML SYRINGE SQ SCH ×2 (05:25→17:06)
[2020-10-06] MEDS: Insulin LISPRO 300 UNITS/3 ML VIAL SUBQ SCH ×4 (05:27→23:27)
[2020-10-06] MEDS ORDERED: Pantoprazole 40 MG VIAL IVP SCH (09:30)
[2020-10-06] MEDS: Ondansetron 4 MG/2 ML VIAL IVP PRN (14:18)
[2020-10-06] MEDS: *HR* Metoprolol 5 MG/5 ML VIAL IVP SCH ×2 (17:05→23:28)
[2020-10-06] MEDS: *HR* Promethazine 25 MG/ML VIAL IM PRN (19:57)
[2020-10-06] MEDS: Budesonide/Formoterol 160/4.5 1 PUFF INH IH SCH (20:29)
[2020-10-07] MEDS: 0.9 % Sodium Chloride 1,000 ML IVC SCH ×2 (02:26→12:38)
[2020-10-07 05:33] LABS: Basophils # 0.1 K/mcL (0.0-0.2); Eosinophils # 0.2 K/mcL (0.0-0.6); Eosinophils % 2.9 %; Hematocrit 33.3 % (37.5-50.1); Hemoglobin 9.9 g/dL (12.9-16.9); Immature Granulocytes % 0.4 % (0-4); Lymphocytes # 1.5 K/mcL (0.6-4.6); Lymphocytes % 22.1 %; Mean Corpuscular HGB Conc 29.7 g/dL (31.6-35.5); Mean Corpuscular Hemoglobin 23.1 pg (28.0-33.3); Mean Corpuscular Volume 77.6 fL (83.0-100.0); Mean Platelet Volume 11.1 fL (9.4-12.4); Monocytes # 0.7 K/mcL (0.0-1.3); Monocytes % 10.5 %; Neutrophils # 4.4 K/mcL (1.6-8.9); Platelet Count 263 K/mcL (140-400); Red Blood Count 4.29 M/mcL (4.19-5.50); Segmented Neutrophils % 63.1 %
[2020-10-07 05:49] LABS: BUN/Creatinine Ratio 14 (6-26); Blood Urea Nitrogen 10 mg/dL (8-23); Calcium 8.4 mg/dL (8.6-10.3); Carbon Dioxide 29 mEq/L (23-29); Chloride 106 mEq/L (98-107); Glucose 90 mg/dL (70-105); Osmolality,Calculated 291 (280-300); Potassium 3.8 mEq/L (3.5-5.1); Sodium 141 mEq/L (136-145); eGFR For African Americans > 60 (> 60); eGFR For Non-African Americans > 60 (> 60)
[2020-10-07] MEDS: *HR* Metoprolol 5 MG/5 ML VIAL IVP SCH ×4 (06:29→23:52)
[2020-10-07] MEDS: Insulin LISPRO 300 UNITS/3 ML VIAL SUBQ SCH ×4 (06:29→23:50)
[2020-10-07] MEDS: *HR* Enoxaparin 100 MG/ML SYRINGE SQ SCH ×2 (06:35→18:04)
[2020-10-07] MEDS: Budesonide/Formoterol 160/4.5 1 PUFF INH IH SCH ×2 (08:11→20:10)
[2020-10-07] MEDS: Pantoprazole 40 MG VIAL IVP SCH (10:16)
[2020-10-07] MEDS: Ondansetron 4 MG/2 ML VIAL IVP PRN (16:08)
[2020-10-07] MEDS: *HR* Promethazine 25 MG/ML VIAL IM PRN (18:26)
[2020-10-07] MEDS ORDERED: *HR* LORazepam 2 MG/ML VIAL IVP ONE (22:01)
[2020-10-08] MEDS: 0.9 % Sodium Chloride 1,000 ML IVC SCH ×2 (02:03→15:20)
[2020-10-08 05:50] LABS: Basophils # 0.1 K/mcL (0.0-0.2); Basophils % 0.6 %; Eosinophils # 0.3 K/mcL (0.0-0.6); Eosinophils % 3.3 %; Hematocrit 33.2 % (37.5-50.1); Hemoglobin 10.2 g/dL (12.9-16.9); Immature Granulocytes % 0.4 % (0-4); Lymphocytes # 1.5 K/mcL (0.6-4.6); Lymphocytes % 17.6 %; Mean Corpuscular HGB Conc 30.7 g/dL (31.6-35.5); Mean Corpuscular Hemoglobin 23.7 pg (28.0-33.3); Mean Corpuscular Volume 77.2 fL (83.0-100.0); Mean Platelet Volume 11.5 fL (9.4-12.4); Monocytes # 0.9 K/mcL (0.0-1.3); Monocytes % 10.8 %; Neutrophils # 5.6 K/mcL (1.6-8.9); Platelet Count 266 K/mcL (140-400); Red Cell Distribution Width 16.8 % (11.5-14.5); Segmented Neutrophils % 67.3 %; White Blood Count 8.3 K/mcL (4.3-11.1)
[2020-10-08] MEDS: Insulin LISPRO 300 UNITS/3 ML VIAL SUBQ SCH ×3 (05:58→16:14)
[2020-10-08 06:02] LABS: BUN/Creatinine Ratio 14 (6-26); Blood Urea Nitrogen 9 mg/dL (8-23); Calcium 8.6 mg/dL (8.6-10.3); Carbon Dioxide 27 mEq/L (23-29); Chloride 103 mEq/L (98-107); Glucose 72 mg/dL (70-105); Osmolality,Calculated 285 (280-300); Potassium 3.6 mEq/L (3.5-5.1); Sodium 139 mEq/L (136-145); eGFR For African Americans > 60 (> 60); eGFR For Non-African Americans > 60 (> 60)
[2020-10-08] MEDS: *HR* Enoxaparin 100 MG/ML SYRINGE SQ SCH (06:05)
[2020-10-08] MEDS: *HR* Metoprolol 5 MG/5 ML VIAL IVP SCH ×3 (06:05→17:32)
[2020-10-08] MEDS: Budesonide/Formoterol 160/4.5 1 PUFF INH IH SCH ×2 (07:41→19:36)
[2020-10-08] MEDS: Pantoprazole 40 MG VIAL IVP SCH (09:25)
[2020-10-08] MEDS: Apixaban 5 MG TABLET PO SCH (20:50)
[2020-10-08] MEDS: Metoprolol 100 MG TABLET PO SCH (20:50)
[2020-10-08] MEDS ORDERED: *HR* LORazepam 2 MG/ML VIAL IVP ONE (20:55)
[2020-10-09] MEDS: Insulin LISPRO 300 UNITS/3 ML VIAL SUBQ SCH ×3 (00:59→12:58)
[2020-10-09 07:20] VITALS: BP 159/83
[2020-10-09] MEDS: Budesonide/Formoterol 160/4.5 1 PUFF INH IH SCH (07:34)
[2020-10-09] MEDS ORDERED: DilTIAZem CD (24hr) 120 MG CAP.ER.24H PO SCH (09:00)
[2020-10-09] MEDS ORDERED: Isosorbide MONOnitrate (24 HR) 60 MG TAB.ER.24H PO SCH (09:00)
[2020-10-09] MEDS: Apixaban 5 MG TABLET PO SCH (09:45)
[2020-10-09] MEDS: Metoprolol 100 MG TABLET PO SCH (09:45)
[2020-10-09] MEDS ORDERED: Insulin LISPRO 300 UNITS/3 ML VIAL SUBQ SCH (21:00)
== END 2020-10-09 14:36 | disposition home or self-care (01) | DRG 389 ==
LOC: 3ANU 20:51 → EMEROOARM 20:51 → SUATTDRO 10-06 01:06 → 3ANU 10-06 01:42
PROVIDERS: ADMIT Family Medicine; ATTEND Internal Medicine

== ENCOUNTER 2020-11-05 08:38 | Observation (INO) ==
[2020-11-05 09:52] LABS: Hematocrit 38.6 % (37.5-50.1); Hemoglobin 11.6 g/dL (12.9-16.9); Mean Corpuscular HGB Conc 30.1 g/dL (31.6-35.5); Mean Corpuscular Hemoglobin 23.2 pg (28.0-33.3); Mean Corpuscular Volume 77.4 fL (83.0-100.0); Mean Platelet Volume 11.8 fL (9.4-12.4); Platelet Count 291 K/mcL (140-400); Red Blood Count 4.99 M/mcL (4.19-5.50); Red Cell Distribution Width 17.7 % (11.5-14.5); White Blood Count 12.7 K/mcL (4.3-11.1)
[2020-11-05 09:55] LABS: Bilirubin,Urine Negative (Negative); Blood,Urine Large (Negative); Clarity,Urine Clear (Clear); Color,Urine Yellow (Yellow); Glucose,Urine (UA) Normal (Normal); Ketones,Urine Trace mg/dL (Negative); Leukocyte Esterase,Urine Negative (Negative); Mucus,Urine Few per lpf (None-Few); Nitrite,Urine Negative (Negative); Protein,Urine 30 mg/dL (Neg-Trace); Specific Gravity,Urine > 1.030 (1.010-1.025); Urobilinogen,Urine Normal (Normal); WBC,Urine 0-3 per hpf (0-3)
[2020-11-05] MEDS ORDERED: Ondansetron 4 MG/2 ML VIAL IVP ONE (10:04)
[2020-11-05] MEDS ORDERED: *HR* FentaNYL (PF) 100 MCG/2 ML VIAL IVP ONE (10:04)
[2020-11-05 10:12] LABS: Alanine Aminotransferase 49 Units/L (7-52); Albumin 4.3 g/dL (3.5-5.7); Albumin/Globulin Ratio 1.3 (1.1-2.2); Alkaline Phosphatase 117 Units/L (34-104); Aspartate Amino Transferase 33 Units/L (13-39); BUN/Creatinine Ratio 14 (6-26); Bilirubin,Direct 0.1 mg/dL (0.0-0.2); Bilirubin,Indirect 0.3 mg/dL (0.0-1.0); Bilirubin,Total 0.4 mg/dL (0.3-1.0); Blood Urea Nitrogen 10 mg/dL (8-23); Calcium 9.5 mg/dL (8.6-10.3); Carbon Dioxide 26 mEq/L (23-29); Chloride 102 mEq/L (98-107); Globulin 3.2 g/dL (2.4-3.5); Glucose 134 mg/dL (70-105); Lipase 21 Units/L (11-82); Osmolality,Calculated 287 (280-300); Potassium 4.1 mEq/L (3.5-5.1); Sodium 138 mEq/L (136-145); Total Protein 7.5 g/dL (6.4-8.9); eGFR For African Americans > 60 (> 60); eGFR For Non-African Americans > 60 (> 60)
[2020-11-05] MEDS ORDERED: Ondansetron 4 MG/2 ML VIAL IVP PRN (11:37)
[2020-11-05] MEDS ORDERED: Naloxone 0.4 MG/ML INJ IVP PRN (11:37)
[2020-11-05] MEDS ORDERED: Dextrose Gel 15 GM/37.5 ML TUBE PO PRN ×2 (11:39)
[2020-11-05] MEDS ORDERED: D5% in Water 1,000 ML IVC PRN (11:39)
[2020-11-05] MEDS ORDERED: *HR* Dextrose 50 % in Water (Vial) 50 ML VIAL IVP PRN (11:39)
[2020-11-05] MEDS ORDERED: Ringers Solution, Lactated 1,000 ML IVC SCH (11:45)
[2020-11-05] MEDS: Pantoprazole 40 MG VIAL IVP SCH (12:11)
[2020-11-05] MEDS: Insulin LISPRO 300 UNITS/3 ML VIAL SUBQ SCH ×2 (12:43→17:07)
[2020-11-05] MEDS ORDERED: *HR* Heparin 5,000 UNIT/ML VIAL IVP ONE (13:45)
[2020-11-05] MEDS ORDERED: *HR* Heparin 5,000 UNIT/ML VIAL IVP PRN ×2 (13:45)
[2020-11-05 14:26] LABS: Hematocrit 36.1 % (37.5-50.1); Hemoglobin 10.9 g/dL (12.9-16.9); Mean Corpuscular HGB Conc 30.2 g/dL (31.6-35.5); Mean Corpuscular Hemoglobin 23.6 pg (28.0-33.3); Mean Corpuscular Volume 78.1 fL (83.0-100.0); Mean Platelet Volume 11.4 fL (9.4-12.4); Platelet Count 260 K/mcL (140-400); Red Blood Count 4.62 M/mcL (4.19-5.50); Red Cell Distribution Width 17.6 % (11.5-14.5); White Blood Count 11.4 K/mcL (4.3-11.1)
[2020-11-05 14:30] LABS: Heparin anti-factor XA UFH 0.54 IU/mL (0.30-0.70); INR 1.5; Prothrombin Time 16.7 Seconds (9.4-12.1)
[2020-11-05] MEDS: Heparin 25,000UNIT/250ML 1/2NS 25,000 UNIT/250 ML IV.SOLN IVC SCH (15:32)
[2020-11-05] MEDS: *HR* Metoprolol 5 MG/5 ML VIAL IVP SCH ×2 (17:15→23:31)
[2020-11-06] MEDS: Insulin LISPRO 300 UNITS/3 ML VIAL SUBQ SCH ×4 (00:48→17:45)
[2020-11-06] MEDS: *HR* Metoprolol 5 MG/5 ML VIAL IVP SCH ×4 (04:52→22:25)
[2020-11-06 06:04] LABS: Basophils # 0.1 K/mcL (0.0-0.2); Basophils % 0.9 %; Eosinophils # 0.2 K/mcL (0.0-0.6); Eosinophils % 3.2 %; Hematocrit 35.4 % (37.5-50.1); Hemoglobin 10.6 g/dL (12.9-16.9); Immature Granulocytes % 0.3 % (0-4); Lymphocytes # 1.7 K/mcL (0.6-4.6); Lymphocytes % 24.8 %; Mean Corpuscular HGB Conc 29.9 g/dL (31.6-35.5); Mean Corpuscular Hemoglobin 23.2 pg (28.0-33.3); Mean Corpuscular Volume 77.5 fL (83.0-100.0); Mean Platelet Volume 11.6 fL (9.4-12.4); Monocytes # 0.8 K/mcL (0.0-1.3); Neutrophils # 4.2 K/mcL (1.6-8.9); Platelet Count 231 K/mcL (140-400); Red Blood Count 4.57 M/mcL (4.19-5.50); Red Cell Distribution Width 17.6 % (11.5-14.5); Segmented Neutrophils % 59.8 %; White Blood Count 6.9 K/mcL (4.3-11.1)
[2020-11-06 06:28] LABS: BUN/Creatinine Ratio 17 (6-26); Blood Urea Nitrogen 11 mg/dL (8-23); Calcium 8.5 mg/dL (8.6-10.3); Carbon Dioxide 28 mEq/L (23-29); Chloride 102 mEq/L (98-107); Glucose 86 mg/dL (70-105); Magnesium 1.6 mg/dL (1.6-2.6); Osmolality,Calculated 285 (280-300); Phosphorous 3.5 mg/dL (2.7-4.5); Potassium 3.6 mEq/L (3.5-5.1); Sodium 138 mEq/L (136-145); eGFR For African Americans > 60 (> 60); eGFR For Non-African Americans > 60 (> 60)
[2020-11-06] MEDS: Pantoprazole 40 MG VIAL IVP SCH (07:51)
[2020-11-06] MEDS: Heparin 25,000UNIT/250ML 1/2NS 25,000 UNIT/250 ML IV.SOLN IVC SCH ×2 (08:24→13:40)
[2020-11-07] MEDS: Insulin LISPRO 300 UNITS/3 ML VIAL SUBQ SCH ×3 (02:15→10:22)
[2020-11-07] MEDS: Heparin 25,000UNIT/250ML 1/2NS 25,000 UNIT/250 ML IV.SOLN IVC SCH (03:34)
[2020-11-07 04:36] LABS: Basophils # 0.1 K/mcL (0.0-0.2); Basophils % 0.9 %; Eosinophils # 0.3 K/mcL (0.0-0.6); Eosinophils % 3.9 %; Hematocrit 35.8 % (37.5-50.1); Hemoglobin 10.6 g/dL (12.9-16.9); Immature Granulocytes % 0.3 % (0-4); Lymphocytes # 1.6 K/mcL (0.6-4.6); Lymphocytes % 25.1 %; Mean Corpuscular HGB Conc 29.6 g/dL (31.6-35.5); Mean Corpuscular Hemoglobin 23.1 pg (28.0-33.3); Mean Corpuscular Volume 78.2 fL (83.0-100.0); Mean Platelet Volume 11.6 fL (9.4-12.4); Monocytes # 0.9 K/mcL (0.0-1.3); Monocytes % 13.9 %; Neutrophils # 3.5 K/mcL (1.6-8.9); Platelet Count 246 K/mcL (140-400); Red Blood Count 4.58 M/mcL (4.19-5.50); Red Cell Distribution Width 17.6 % (11.5-14.5); Segmented Neutrophils % 55.9 %; White Blood Count 6.3 K/mcL (4.3-11.1)
[2020-11-07 04:53] LABS: BUN/Creatinine Ratio 12 (6-26); Blood Urea Nitrogen 7 mg/dL (8-23); Calcium 8.6 mg/dL (8.6-10.3); Carbon Dioxide 27 mEq/L (23-29); Chloride 101 mEq/L (98-107); Glucose 103 mg/dL (70-105); Osmolality,Calculated 288 (280-300); Potassium 3.6 mEq/L (3.5-5.1); Sodium 140 mEq/L (136-145); eGFR For African Americans > 60 (> 60); eGFR For Non-African Americans > 60 (> 60)
[2020-11-07] MEDS: *HR* Metoprolol 5 MG/5 ML VIAL IVP SCH ×2 (05:00→10:22)
[2020-11-07 07:16] VITALS: BP 154/78
[2020-11-07] MEDS: Pantoprazole 40 MG VIAL IVP SCH (08:05)
== END 2020-11-07 11:12 | disposition home or self-care (01) ==
LOC: EMEROOARM 08:38 → 3ANU 08:38 → SUATTDRO 12:03 → 3ANU 13:04
PROVIDERS: ADMIT Internal Medicine; ATTEND Internal Medicine

== ENCOUNTER 2020-11-17 15:13 | Observation (INO) ==
[2020-11-17] MEDS ORDERED: 0.9 % Sodium Chloride 1,000 ML IVC ONE (15:43)
[2020-11-17] MEDS ORDERED: Ondansetron 4 MG/2 ML VIAL IVP ONE ×2 (15:43→21:01)
[2020-11-17] MEDS ORDERED: Morphine Sulfate 2 MG/ML SYRINGE IVP ONE (15:43)
[2020-11-17 16:16] LABS: Basophils % 0.3 %; Eosinophils % 0.2 %; Hematocrit 37.5 % (37.5-50.1); Hemoglobin 11.6 g/dL (12.9-16.9); Immature Granulocytes % 0.3 % (0-4); Lymphocytes # 1.4 K/mcL (0.6-4.6); Mean Corpuscular HGB Conc 30.9 g/dL (31.6-35.5); Mean Corpuscular Hemoglobin 23.9 pg (28.0-33.3); Mean Corpuscular Volume 77.3 fL (83.0-100.0); Mean Platelet Volume 11.6 fL (9.4-12.4); Monocytes # 0.9 K/mcL (0.0-1.3); Monocytes % 7.1 %; Neutrophils # 9.6 K/mcL (1.6-8.9); Platelet Count 317 K/mcL (140-400); Red Blood Count 4.85 M/mcL (4.19-5.50); Red Cell Distribution Width 17.2 % (11.5-14.5); Segmented Neutrophils % 80.1 %
[2020-11-17 16:33] LABS: Alanine Aminotransferase 44 Units/L (7-52); Albumin 4.3 g/dL (3.5-5.7); Albumin/Globulin Ratio 1.3 (1.1-2.2); Alkaline Phosphatase 102 Units/L (34-104); Aspartate Amino Transferase 30 Units/L (13-39); BUN/Creatinine Ratio 13 (6-26); Bilirubin,Total 0.4 mg/dL (0.3-1.0); Blood Urea Nitrogen 9 mg/dL (8-23); Calcium 9.7 mg/dL (8.6-10.3); Carbon Dioxide 27 mEq/L (23-29); Chloride 101 mEq/L (98-107); Globulin 3.3 g/dL (2.4-3.5); Glucose 178 mg/dL (70-105); Osmolality,Calculated 287 (280-300); Potassium 3.9 mEq/L (3.5-5.1); Sodium 137 mEq/L (136-145); Total Protein 7.6 g/dL (6.4-8.9); Troponin I < 0.03 ng/mL (< 0.04); eGFR For African Americans > 60 (> 60); eGFR For Non-African Americans > 60 (> 60)
[2020-11-17 16:52] LABS: INR 1.3; Prothrombin Time 15.2 Seconds (9.4-12.1)
[2020-11-17 16:54] LABS: Activated Partial Thrombo Time 28.7 Seconds (26.0-36.0)
[2020-11-17] MEDS ORDERED: *HR* HYDROmorphone (PF) 1 MG/ML SYRINGE IVP ONE ×3 (17:33→21:01)
[2020-11-17] MEDS ORDERED: Ondansetron 4 MG/2 ML VIAL IVP PRN (17:52)
[2020-11-17] MEDS ORDERED: Naloxone 0.4 MG/ML INJ IVP PRN (17:52)
[2020-11-17] MEDS ORDERED: Melatonin 3 MG TABLET PO PRN (17:52)
[2020-11-17] MEDS ORDERED: D5% in Water 1,000 ML IVC PRN (17:53)
[2020-11-17] MEDS ORDERED: Dextrose Gel 15 GM/37.5 ML TUBE PO PRN ×2 (17:53)
[2020-11-17] MEDS ORDERED: *HR* Dextrose 50 % in Water (Vial) 50 ML VIAL IVP PRN (17:53)
[2020-11-17] MEDS ORDERED: Nitroglycerin 0.4 MG TAB.SUBL SL PRN (17:56)
[2020-11-17] MEDS ORDERED: *HR* Metoprolol 5 MG/5 ML VIAL IVP SCH (18:00)
[2020-11-17] MEDS ORDERED: Enoxaparin Weight Dosing SQ SCH ×2 (18:30→18:45)
[2020-11-17] MEDS ORDERED: Morphine Sulfate 2 MG/ML SYRINGE IVP PRN (18:43)
[2020-11-17] MEDS ORDERED: *HR* OxyCODONE Oral Soln 5 MG/5 ML UD.LIQ PO PRN (18:44)
[2020-11-17] MEDS: Ondansetron 4 MG/2 ML VIAL IVP PRN (19:37)
[2020-11-17 19:54] LABS: Bacteria,Urine Few per hpf (None-Few); Bilirubin,Urine Negative (Negative); Blood,Urine Negative (Negative); Clarity,Urine Clear (Clear); Color,Urine Yellow (Yellow); Glucose,Urine (UA) 30 mg/dL (Normal); Ketones,Urine Negative (Negative); Leukocyte Esterase,Urine Negative (Negative); Mucus,Urine Few per lpf (None-Few); Nitrite,Urine Negative (Negative); PH,Urine 6.5 pH Units (5.0-8.0); Protein,Urine 30 mg/dL (Neg-Trace); RBC,Urine 0-3 per hpf (0-3); Specific Gravity,Urine 1.028 (1.010-1.025); Urobilinogen,Urine Normal (Normal); WBC,Urine 0-3 per hpf (0-3)
[2020-11-17] MEDS: Budesonide/Formoterol 160/4.5 1 PUFF INH IH SCH (21:23)
[2020-11-17] MEDS: *HR* Enoxaparin 100 MG/ML SYRINGE SQ SCH (22:23)
[2020-11-17] MEDS ORDERED: *HR* Promethazine 25 MG/ML VIAL IM PRN (22:28)
[2020-11-17] MEDS: *HR* Metoprolol 5 MG/5 ML VIAL IVP SCH (23:36)
[2020-11-18 01:39] LABS: Hematocrit 35.6 % (37.5-50.1); Hemoglobin 10.9 g/dL (12.9-16.9); Mean Corpuscular HGB Conc 30.6 g/dL (31.6-35.5); Mean Corpuscular Hemoglobin 23.5 pg (28.0-33.3); Mean Corpuscular Volume 76.7 fL (83.0-100.0); Mean Platelet Volume 11.8 fL (9.4-12.4); Platelet Count 306 K/mcL (140-400); Red Blood Count 4.64 M/mcL (4.19-5.50); Red Cell Distribution Width 17.1 % (11.5-14.5); White Blood Count 15.8 K/mcL (4.3-11.1)
[2020-11-18 01:55] LABS: BUN/Creatinine Ratio 15 (6-26); Blood Urea Nitrogen 9 mg/dL (8-23); Calcium 9.2 mg/dL (8.6-10.3); Carbon Dioxide 27 mEq/L (23-29); Chloride 101 mEq/L (98-107); Glucose 150 mg/dL (70-105); Magnesium 1.6 mg/dL (1.6-2.6); Osmolality,Calculated 286 (280-300); Potassium 3.9 mEq/L (3.5-5.1); Sodium 137 mEq/L (136-145); eGFR For African Americans > 60 (> 60); eGFR For Non-African Americans > 60 (> 60)
[2020-11-18] MEDS: *HR* Enoxaparin 100 MG/ML SYRINGE SQ SCH ×2 (05:55→17:37)
[2020-11-18] MEDS: *HR* Metoprolol 5 MG/5 ML VIAL IVP SCH ×4 (05:55→23:30)
[2020-11-18] MEDS ORDERED: Enoxaparin Weight Dosing SQ SCH (06:00)
[2020-11-18] MEDS: Budesonide/Formoterol 160/4.5 1 PUFF INH IH SCH ×2 (07:26→20:02)
[2020-11-18] MEDS: Ondansetron 4 MG/2 ML VIAL IVP PRN (13:06)
[2020-11-18] MEDS ORDERED: E-Z-PAQUE (BARIUM SULF) SUSP 1 BOTTLE PO ONE (14:22)
[2020-11-18] MEDS ORDERED: *HR* Enoxaparin 100 MG/ML SYRINGE SQ SCH (18:45)
[2020-11-19 02:08] LABS: Basophils % 0.7 %; Eosinophils # 0.1 K/mcL (0.0-0.6); Eosinophils % 2.1 %; Hematocrit 33.6 % (37.5-50.1); Hemoglobin 10.4 g/dL (12.9-16.9); Immature Granulocytes % 0.2 % (0-4); Lymphocytes # 1.5 K/mcL (0.6-4.6); Lymphocytes % 24.3 %; Mean Corpuscular Hemoglobin 23.8 pg (28.0-33.3); Mean Corpuscular Volume 76.9 fL (83.0-100.0); Mean Platelet Volume 11.6 fL (9.4-12.4); Monocytes % 16.9 %; Neutrophils # 3.4 K/mcL (1.6-8.9); Platelet Count 256 K/mcL (140-400); Red Blood Count 4.37 M/mcL (4.19-5.50); Segmented Neutrophils % 55.8 %
[2020-11-19 02:10] LABS: White Blood Count 6.1 K/mcL (4.3-11.1)
[2020-11-19 02:28] LABS: BUN/Creatinine Ratio 20 (6-26); Blood Urea Nitrogen 13 mg/dL (8-23); Calcium 8.7 mg/dL (8.6-10.3); Carbon Dioxide 29 mEq/L (23-29); Chloride 102 mEq/L (98-107); Glucose 98 mg/dL (70-105); Osmolality,Calculated 286 (280-300); Potassium 3.8 mEq/L (3.5-5.1); Sodium 138 mEq/L (136-145); eGFR For African Americans > 60 (> 60); eGFR For Non-African Americans > 60 (> 60)
[2020-11-19] MEDS: *HR* Metoprolol 5 MG/5 ML VIAL IVP SCH (05:25)
[2020-11-19] MEDS: *HR* Enoxaparin 100 MG/ML SYRINGE SQ SCH (05:26)
[2020-11-19] MEDS: Budesonide/Formoterol 160/4.5 1 PUFF INH IH SCH ×2 (07:28→19:45)
[2020-11-19] MEDS: Ondansetron 4 MG/2 ML VIAL IVP PRN (09:30)
[2020-11-19] MEDS: cephALEXin 500 MG CAPSULE PO SCH ×2 (11:42→20:47)
[2020-11-19] MEDS: Insulin LISPRO 300 UNITS/3 ML VIAL SUBQ SCH (18:05)
[2020-11-19] MEDS: Apixaban 5 MG TABLET PO SCH (20:45)
[2020-11-19] MEDS: Metoprolol 100 MG TABLET PO SCH (20:45)
[2020-11-19] MEDS: Gabapentin 300 MG CAPSULE PO SCH (20:46)
[2020-11-19] MEDS ORDERED: Insulin LISPRO 300 UNITS/3 ML VIAL SUBQ SCH (21:00)
[2020-11-20 03:04] LABS: Basophils # 0.1 K/mcL (0.0-0.2); Basophils % 1.1 %; Eosinophils # 0.1 K/mcL (0.0-0.6); Hematocrit 35.2 % (37.5-50.1); Hemoglobin 10.9 g/dL (12.9-16.9); Immature Granulocytes % 0.2 % (0-4); Lymphocytes # 1.3 K/mcL (0.6-4.6); Lymphocytes % 23.6 %; Mean Corpuscular Volume 77.5 fL (83.0-100.0); Mean Platelet Volume 11.2 fL (9.4-12.4); Monocytes # 0.8 K/mcL (0.0-1.3); Monocytes % 15.6 %; Neutrophils # 3.1 K/mcL (1.6-8.9); Platelet Count 259 K/mcL (140-400); Red Blood Count 4.54 M/mcL (4.19-5.50); Red Cell Distribution Width 16.9 % (11.5-14.5); Segmented Neutrophils % 57.5 %; White Blood Count 5.4 K/mcL (4.3-11.1)
[2020-11-20 03:19] LABS: BUN/Creatinine Ratio 16 (6-26); Blood Urea Nitrogen 10 mg/dL (8-23); Carbon Dioxide 27 mEq/L (23-29); Chloride 102 mEq/L (98-107); Glucose 106 mg/dL (70-105); Osmolality,Calculated 283 (280-300); Potassium 3.8 mEq/L (3.5-5.1); Sodium 137 mEq/L (136-145); eGFR For African Americans > 60 (> 60); eGFR For Non-African Americans > 60 (> 60)
[2020-11-20] MEDS: Budesonide/Formoterol 160/4.5 1 PUFF INH IH SCH (07:47)
[2020-11-20 08:28] VITALS: BP 152/86; PULSE 69; TEMP 97.6; O2SAT 95
[2020-11-20] MEDS ORDERED: Aspirin Enteric Coated 81 MG Tablet PO SCH (09:00)
[2020-11-20] MEDS ORDERED: DilTIAZem CD (24hr) 120 MG CAP.ER.24H PO SCH (09:00)
[2020-11-20] MEDS ORDERED: Isosorbide MONOnitrate (24 HR) 60 MG TAB.ER.24H PO SCH (09:00)
[2020-11-20] MEDS: Insulin LISPRO 300 UNITS/3 ML VIAL SUBQ SCH (09:40)
[2020-11-20] MEDS: Apixaban 5 MG TABLET PO SCH (09:50)
[2020-11-20] MEDS: cephALEXin 500 MG CAPSULE PO SCH (09:50)
[2020-11-20] MEDS: Metoprolol 100 MG TABLET PO SCH (09:50)
[2020-11-20] MEDS: Gabapentin 300 MG CAPSULE PO SCH (09:51)
== END 2020-11-20 11:01 | disposition home or self-care (01) ==
LOC: EMEROOARM 15:13 → 3ANU 15:13 → SUATTDRO 21:08 → 3ANU 21:45
PROVIDERS: ADMIT Family Medicine; ATTEND Internal Medicine

== ENCOUNTER 2020-12-23 03:56 | Inpatient (IN) ==
[2020-12-23] MEDS ORDERED: Ondansetron 4 MG/2 ML VIAL IVP ONE (04:07)
[2020-12-23] MEDS ORDERED: 0.9 % Sodium Chloride 1,000 ML IVC ONE (04:07)
[2020-12-23 04:32] LABS: Basophils % 0.2 %; Eosinophils % 0.1 %; Hematocrit 41.8 % (37.5-50.1); Hemoglobin 13.1 g/dL (12.9-16.9); Immature Granulocytes % 0.4 % (0-4); Lymphocytes # 1.1 K/mcL (0.6-4.6); Lymphocytes % 7.9 %; Mean Corpuscular HGB Conc 31.3 g/dL (31.6-35.5); Mean Corpuscular Hemoglobin 24.9 pg (28.0-33.3); Mean Corpuscular Volume 79.5 fL (83.0-100.0); Mean Platelet Volume 11.3 fL (9.4-12.4); Monocytes # 0.7 K/mcL (0.0-1.3); Monocytes % 5.3 %; Neutrophils # 11.5 K/mcL (1.6-8.9); Platelet Count 271 K/mcL (140-400); Red Blood Count 5.26 M/mcL (4.19-5.50); Red Cell Distribution Width 19.7 % (11.5-14.5); Segmented Neutrophils % 86.1 %; White Blood Count 13.3 K/mcL (4.3-11.1)
[2020-12-23] MEDS ORDERED: Morphine Sulfate 2 MG/ML SYRINGE IVP ONE ×2 (04:33→05:58)
[2020-12-23 04:49] LABS: Bilirubin,Urine Negative (Negative); Blood,Urine Negative (Negative); Clarity,Urine Clear (Clear); Color,Urine Yellow (Yellow); Glucose,Urine (UA) 150 mg/dL (Normal); Ketones,Urine Trace mg/dL (Negative); Leukocyte Esterase,Urine Negative (Negative); Mucus,Urine Few per lpf (None-Few); Nitrite,Urine Negative (Negative); PH,Urine 6.5 pH Units (5.0-8.0); Protein,Urine 30 mg/dL (Neg-Trace); RBC,Urine 0-3 per hpf (0-3); Urobilinogen,Urine Normal (Normal); WBC,Urine 0-3 per hpf (0-3)
[2020-12-23 04:56] LABS: Alanine Aminotransferase 41 Units/L (7-52); Albumin 4.4 g/dL (3.5-5.7); Albumin/Globulin Ratio 1.3 (1.1-2.2); Alkaline Phosphatase 97 Units/L (34-104); Aspartate Amino Transferase 28 Units/L (13-39); BUN/Creatinine Ratio 17 (6-26); Bilirubin,Direct 0.1 mg/dL (0.0-0.2); Bilirubin,Indirect 0.3 mg/dL (0.0-1.0); Bilirubin,Total 0.4 mg/dL (0.3-1.0); Blood Urea Nitrogen 12 mg/dL (8-23); Calcium 9.4 mg/dL (8.6-10.3); Carbon Dioxide 27 mEq/L (23-29); Chloride 102 mEq/L (98-107); Globulin 3.3 g/dL (2.4-3.5); Glucose 191 mg/dL (70-105); Lipase 12 Units/L (11-82); Osmolality,Calculated 293 (280-300); Potassium 4.1 mEq/L (3.5-5.1); Sodium 139 mEq/L (136-145); Total Protein 7.7 g/dL (6.4-8.9); Troponin I < 0.03 ng/mL (< 0.04); eGFR For African Americans > 60 (> 60); eGFR For Non-African Americans > 60 (> 60)
[2020-12-23] MEDS ORDERED: Naloxone 0.4 MG/ML INJ IVP PRN (07:39)
[2020-12-23] MEDS ORDERED: *HR* Promethazine 25 MG/ML VIAL IM PRN (08:36)
[2020-12-23] MEDS ORDERED: Acetaminophen 325 MG TABLET PO PRN (08:37)
[2020-12-23] MEDS: Ringers Solution, Lactated 1,000 ML IVC SCH ×2 (08:56→17:57)
[2020-12-23] MEDS ORDERED: D5% in Water 1,000 ML IVC PRN (09:07)
[2020-12-23] MEDS ORDERED: Dextrose Gel 15 GM/37.5 ML TUBE PO PRN ×2 (09:07)
[2020-12-23] MEDS ORDERED: *HR* Dextrose 50 % in Water (Vial) 50 ML VIAL IVP PRN (09:07)
[2020-12-23] MEDS: Pantoprazole 40 MG VIAL IVP SCH (09:12)
[2020-12-23] MEDS: Ondansetron 4 MG/2 ML VIAL IVP PRN ×2 (09:19→22:48)
[2020-12-23] MEDS ORDERED: Isovue-370 500 ML BOTTLE IVP ONE (09:35)
[2020-12-23] MEDS: Morphine Sulfate 2 MG/ML SYRINGE IVP PRN ×2 (10:20→19:08)
[2020-12-23] MEDS: Insulin LISPRO 300 UNITS/3 ML VIAL SUBQ SCH ×3 (12:17→23:55)
[2020-12-23] MEDS: *HR* Metoprolol 5 MG/5 ML VIAL IVP SCH ×3 (12:20→22:47)
[2020-12-23] MEDS: Ketorolac 30 MG/ML VIAL IVP PRN ×2 (13:03→22:48)
[2020-12-23] MEDS: *HR* Heparin 5,000 UNIT/ML VIAL SQ SCH (17:59)
[2020-12-23] MEDS: Budesonide/Formoterol 160/4.5 1 PUFF INH IH SCH (22:33)
[2020-12-24] MEDS: Morphine Sulfate 2 MG/ML SYRINGE IVP PRN ×5 (00:41→19:44)
[2020-12-24 01:58] LABS: Basophils % 0.2 %; Eosinophils % 0.2 %; Hematocrit 39.1 % (37.5-50.1); Hemoglobin 12.4 g/dL (12.9-16.9); Immature Granulocytes % 0.4 % (0-4); Lymphocytes # 0.7 K/mcL (0.6-4.6); Lymphocytes % 6.1 %; Mean Corpuscular HGB Conc 31.7 g/dL (31.6-35.5); Mean Corpuscular Hemoglobin 25.4 pg (28.0-33.3); Mean Platelet Volume 11.7 fL (9.4-12.4); Monocytes # 1.2 K/mcL (0.0-1.3); Monocytes % 10.6 %; Neutrophils # 9.3 K/mcL (1.6-8.9); Platelet Count 225 K/mcL (140-400); Red Blood Count 4.89 M/mcL (4.19-5.50); Red Cell Distribution Width 19.9 % (11.5-14.5); Segmented Neutrophils % 82.5 %; White Blood Count 11.2 K/mcL (4.3-11.1)
[2020-12-24 02:16] LABS: BUN/Creatinine Ratio 22 (6-26); Blood Urea Nitrogen 16 mg/dL (8-23); Calcium 8.7 mg/dL (8.6-10.3); Carbon Dioxide 25 mEq/L (23-29); Chloride 103 mEq/L (98-107); Glucose 133 mg/dL (70-105); Osmolality,Calculated 289 (280-300); Potassium 3.8 mEq/L (3.5-5.1); Sodium 138 mEq/L (136-145); eGFR For African Americans > 60 (> 60); eGFR For Non-African Americans > 60 (> 60)
[2020-12-24] MEDS: Ringers Solution, Lactated 1,000 ML IVC SCH ×2 (04:33→14:56)
[2020-12-24] MEDS: Ketorolac 30 MG/ML VIAL IVP PRN (06:28)
[2020-12-24] MEDS: *HR* Metoprolol 5 MG/5 ML VIAL IVP SCH ×3 (06:29→17:11)
[2020-12-24] MEDS: Insulin LISPRO 300 UNITS/3 ML VIAL SUBQ SCH ×3 (06:30→16:57)
[2020-12-24] MEDS: *HR* Heparin 5,000 UNIT/ML VIAL SQ SCH ×2 (06:33→17:10)
[2020-12-24] MEDS: Pantoprazole 40 MG VIAL IVP SCH (08:34)
[2020-12-24] MEDS: Budesonide/Formoterol 160/4.5 1 PUFF INH IH SCH ×2 (10:51→19:56)
[2020-12-24] MEDS: Ondansetron 4 MG/2 ML VIAL IVP PRN (12:28)
[2020-12-24] MEDS ORDERED: Chloraseptic Spray 177 ML BOTTLE MM PRN (15:20)
[2020-12-25] MEDS: *HR* Metoprolol 5 MG/5 ML VIAL IVP SCH ×4 (00:15→17:27)
[2020-12-25] MEDS: Morphine Sulfate 2 MG/ML SYRINGE IVP PRN ×2 (00:16→05:01)
[2020-12-25] MEDS: Ringers Solution, Lactated 1,000 ML IVC SCH ×2 (00:17→10:25)
[2020-12-25] MEDS: Insulin LISPRO 300 UNITS/3 ML VIAL SUBQ SCH ×5 (00:18→20:40)
[2020-12-25] MEDS: Ketorolac 30 MG/ML VIAL IVP PRN (02:07)
[2020-12-25] MEDS: *HR* Heparin 5,000 UNIT/ML VIAL SQ SCH ×2 (05:39→17:26)
[2020-12-25 06:24] LABS: Basophils # 0.1 K/mcL (0.0-0.2); Basophils % 1.2 %; Eosinophils # 0.2 K/mcL (0.0-0.6); Eosinophils % 4.4 %; Hemoglobin 11.1 g/dL (12.9-16.9); Lymphocytes # 1.3 K/mcL (0.6-4.6); Lymphocytes % 31.7 %; Mean Corpuscular HGB Conc 31.7 g/dL (31.6-35.5); Mean Corpuscular Hemoglobin 25.6 pg (28.0-33.3); Mean Corpuscular Volume 80.6 fL (83.0-100.0); Monocytes # 0.9 K/mcL (0.0-1.3); Monocytes % 22.4 %; Neutrophils # 1.7 K/mcL (1.6-8.9); Platelet Count 182 K/mcL (140-400); Red Blood Count 4.34 M/mcL (4.19-5.50); Red Cell Distribution Width 19.9 % (11.5-14.5); Segmented Neutrophils % 40.3 %
[2020-12-25 06:26] LABS: White Blood Count 4.1 K/mcL (4.3-11.1)
[2020-12-25 06:30] LABS: INR 1.5
[2020-12-25 06:33] LABS: Activated Partial Thrombo Time 101.5 Seconds (26.0-36.0)
[2020-12-25 06:46] LABS: BUN/Creatinine Ratio 26 (6-26); Blood Urea Nitrogen 17 mg/dL (8-23); Calcium 8.1 mg/dL (8.6-10.3); Carbon Dioxide 24 mEq/L (23-29); Chloride 108 mEq/L (98-107); Glucose 116 mg/dL (70-105); Osmolality,Calculated 293 (280-300); Potassium 3.7 mEq/L (3.5-5.1); Sodium 140 mEq/L (136-145); eGFR For African Americans > 60 (> 60); eGFR For Non-African Americans > 60 (> 60)
[2020-12-25] MEDS: Budesonide/Formoterol 160/4.5 1 PUFF INH IH SCH ×2 (07:25→20:28)
[2020-12-25] MEDS: Pantoprazole 40 MG VIAL IVP SCH (10:25)
[2020-12-25] MEDS ORDERED: Nitroglycerin 0.4 MG TAB.SUBL SL PRN (18:53)
[2020-12-25] MEDS: Gabapentin 300 MG CAPSULE PO SCH (20:44)
[2020-12-25] MEDS: Apixaban 5 MG TABLET PO SCH (20:44)
[2020-12-25] MEDS: Metoprolol 100 MG TABLET PO SCH (20:45)
[2020-12-26 01:16] LABS: Hematocrit 34.5 % (37.5-50.1); Mean Corpuscular HGB Conc 31.9 g/dL (31.6-35.5); Mean Corpuscular Hemoglobin 25.6 pg (28.0-33.3); Mean Corpuscular Volume 80.4 fL (83.0-100.0); Mean Platelet Volume 11.2 fL (9.4-12.4); Platelet Count 191 K/mcL (140-400); Red Blood Count 4.29 M/mcL (4.19-5.50); Red Cell Distribution Width 19.5 % (11.5-14.5); White Blood Count 4.2 K/mcL (4.3-11.1)
[2020-12-26 01:34] LABS: Complement C3 112 mg/dL (87-200)
[2020-12-26 01:35] LABS: BUN/Creatinine Ratio 22 (6-26); Blood Urea Nitrogen 11 mg/dL (8-23); Calcium 8.5 mg/dL (8.6-10.3); Carbon Dioxide 26 mEq/L (23-29); Chloride 106 mEq/L (98-107); Glucose 123 mg/dL (70-105); Osmolality,Calculated 289 (280-300); Potassium 3.5 mEq/L (3.5-5.1); Sodium 139 mEq/L (136-145); eGFR For African Americans > 60 (> 60); eGFR For Non-African Americans > 60 (> 60)
[2020-12-26 02:23] LABS: Hepatitis B Surface Antibody < 3.10 mIU/mL
[2020-12-26 02:35] LABS: Hepatitis B Surface Antigen Nonreactive (Nonreactive)
[2020-12-26] MEDS: Budesonide/Formoterol 160/4.5 1 PUFF INH IH SCH ×2 (07:38→22:10)
[2020-12-26] MEDS: DilTIAZem CD (24hr) 120 MG CAP.ER.24H PO SCH (08:53)
[2020-12-26] MEDS: Gabapentin 300 MG CAPSULE PO SCH ×2 (08:54→20:37)
[2020-12-26] MEDS: Insulin LISPRO 300 UNITS/3 ML VIAL SUBQ SCH ×4 (08:54→20:39)
[2020-12-26] MEDS: Aspirin Enteric Coated 81 MG Tablet PO SCH (08:54)
[2020-12-26] MEDS: Apixaban 5 MG TABLET PO SCH ×2 (08:54→20:38)
[2020-12-26] MEDS: Isosorbide MONOnitrate (24 HR) 60 MG TAB.ER.24H PO SCH (08:54)
[2020-12-26] MEDS: Metoprolol 100 MG TABLET PO SCH ×2 (08:54→20:37)
[2020-12-26] MEDS: Ondansetron 4 MG/2 ML VIAL IVP PRN (09:59)
[2020-12-27 06:58] LABS: Hematocrit 34.9 % (37.5-50.1); Hemoglobin 10.8 g/dL (12.9-16.9); Mean Corpuscular HGB Conc 30.9 g/dL (31.6-35.5); Mean Corpuscular Hemoglobin 25.2 pg (28.0-33.3); Mean Corpuscular Volume 81.4 fL (83.0-100.0); Mean Platelet Volume 11.2 fL (9.4-12.4); Platelet Count 161 K/mcL (140-400); Red Blood Count 4.29 M/mcL (4.19-5.50); Red Cell Distribution Width 19.7 % (11.5-14.5); White Blood Count 5.3 K/mcL (4.3-11.1)
[2020-12-27 07:18] LABS: BUN/Creatinine Ratio 12 (6-26); Blood Urea Nitrogen 7 mg/dL (8-23); Calcium 8.7 mg/dL (8.6-10.3); Carbon Dioxide 27 mEq/L (23-29); Chloride 105 mEq/L (98-107); Glucose 120 mg/dL (70-105); Osmolality,Calculated 283 (280-300); Potassium 3.8 mEq/L (3.5-5.1); Sodium 137 mEq/L (136-145); eGFR For African Americans > 60 (> 60); eGFR For Non-African Americans > 60 (> 60)
[2020-12-27] MEDS: Insulin LISPRO 300 UNITS/3 ML VIAL SUBQ SCH ×3 (07:37→17:04)
[2020-12-27] MEDS: Aspirin Enteric Coated 81 MG Tablet PO SCH (09:26)
[2020-12-27] MEDS: Gabapentin 300 MG CAPSULE PO SCH (09:26)
[2020-12-27] MEDS: Metoprolol 100 MG TABLET PO SCH (09:26)
[2020-12-27] MEDS: Apixaban 5 MG TABLET PO SCH (09:26)
[2020-12-27] MEDS: Isosorbide MONOnitrate (24 HR) 60 MG TAB.ER.24H PO SCH (09:26)
[2020-12-27] MEDS: DilTIAZem CD (24hr) 120 MG CAP.ER.24H PO SCH (09:26)
[2020-12-27] MEDS: Budesonide/Formoterol 160/4.5 1 PUFF INH IH SCH (10:06)
[2020-12-27 15:27] VITALS: BP 142/69; PULSE 63; TEMP 97.7; O2SAT 94
[2020-12-28 08:40] LABS: Hepatitis B Core Ab Total NEGATIVE (Negative)
[2020-12-28 08:42] LABS: ANA IgG by ELISA NONE DETECTED (None Detected); Serine Protease-3 Antibody 2 AU/mL (0-19)
== END 2020-12-27 17:50 | disposition home or self-care (01) | DRG 389 ==
LOC: EMEROOARM 03:56 → 3ANU 03:56 → SUATTDRO 06:40 → 3ANU 07:46
PROVIDERS: ADMIT Student in an Organized Health Care Education/Training Program; ATTEND Internal Medicine

== ENCOUNTER 2021-01-07 14:51 | Observation (INO) ==
[2021-01-07 16:11] LABS: Basophils # 0.1 K/mcL (0.0-0.2); Basophils % 0.4 %; Eosinophils # 0.1 K/mcL (0.0-0.6); Eosinophils % 0.8 %; Hemoglobin 13.3 g/dL (12.9-16.9); Immature Granulocytes % 0.4 % (0-4); Lymphocytes # 1.7 K/mcL (0.6-4.6); Lymphocytes % 12.4 %; Mean Corpuscular HGB Conc 32.4 g/dL (31.6-35.5); Mean Corpuscular Hemoglobin 26.4 pg (28.0-33.3); Mean Corpuscular Volume 81.3 fL (83.0-100.0); Monocytes # 0.9 K/mcL (0.0-1.3); Monocytes % 6.5 %; Neutrophils # 11.1 K/mcL (1.6-8.9); Platelet Count 321 K/mcL (140-400); Red Blood Count 5.04 M/mcL (4.19-5.50); Red Cell Distribution Width 19.9 % (11.5-14.5); Segmented Neutrophils % 79.5 %; White Blood Count 13.9 K/mcL (4.3-11.1)
[2021-01-07 16:13] LABS: Bilirubin,Urine Negative (Negative); Blood,Urine Trace (Negative); Clarity,Urine Clear (Clear); Color,Urine Yellow (Yellow); Glucose,Urine (UA) Normal (Normal); Ketones,Urine Negative (Negative); Leukocyte Esterase,Urine Negative (Negative); Mucus,Urine Few per lpf (None-Few); Nitrite,Urine Negative (Negative); Protein,Urine 30 mg/dL (Neg-Trace); Specific Gravity,Urine > 1.030 (1.010-1.025); Squamous Epithelial Cell,Urine Few per hpf (None-Few); WBC,Urine 0-3 per hpf (0-3)
[2021-01-07 16:30] LABS: BUN/Creatinine Ratio 19 (6-26); Blood Urea Nitrogen 13 mg/dL (8-23); Calcium 9.6 mg/dL (8.6-10.3); Carbon Dioxide 27 mEq/L (23-29); Chloride 99 mEq/L (98-107); Glucose 143 mg/dL (70-105); Osmolality,Calculated 285 (280-300); Potassium 3.7 mEq/L (3.5-5.1); Sodium 136 mEq/L (136-145); eGFR For African Americans > 60 (> 60); eGFR For Non-African Americans > 60 (> 60)
[2021-01-07] MEDS ORDERED: Isovue-370 500 ML BOTTLE IVP ONE (18:13)
[2021-01-07 18:29] LABS: Alanine Aminotransferase 36 Units/L (7-52); Albumin 4.4 g/dL (3.5-5.7); Albumin/Globulin Ratio 1.4 (1.1-2.2); Alkaline Phosphatase 86 Units/L (34-104); Aspartate Amino Transferase 26 Units/L (13-39); Bilirubin,Direct 0.1 mg/dL (0.0-0.2); Bilirubin,Indirect 0.3 mg/dL (0.0-1.0); Bilirubin,Total 0.4 mg/dL (0.3-1.0); Globulin 3.2 g/dL (2.4-3.5); Lipase 49 Units/L (11-82); Total Protein 7.6 g/dL (6.4-8.9)
[2021-01-07] MEDS ORDERED: *HR* HYDROmorphone (PF) 1 MG/ML SYRINGE IVP ONE ×2 (18:39→20:13)
[2021-01-07] MEDS ORDERED: Ondansetron 4 MG/2 ML VIAL IVP ONE (18:39)
[2021-01-07] MEDS ORDERED: 0.9 % Sodium Chloride 1,000 ML IVC ONE (18:44)
[2021-01-07] MEDS ORDERED: *HR* FentaNYL (PF) 100 MCG/2 ML VIAL IVP ONE (21:22)
[2021-01-07] MEDS ORDERED: Melatonin 3 MG TABLET PO PRN (21:41)
[2021-01-07] MEDS ORDERED: Naloxone 0.4 MG/ML INJ IVP PRN (21:41)
[2021-01-07] MEDS ORDERED: Acetaminophen 325 MG TABLET PO PRN (21:41)
[2021-01-07] MEDS ORDERED: Metoclopramide 10 MG/2 ML VIAL IVP ONE (21:44)
[2021-01-07] MEDS ORDERED: 0.9 % Sodium Chloride 1,000 ML IVC SCH (21:45)
[2021-01-07] MEDS: Ondansetron 4 MG/2 ML VIAL IVP PRN (23:00)
[2021-01-07] MEDS ORDERED: D5% in Water 1,000 ML IVC PRN (23:15)
[2021-01-07] MEDS ORDERED: Dextrose Gel 15 GM/37.5 ML TUBE PO PRN ×2 (23:15)
[2021-01-07] MEDS ORDERED: *HR* Dextrose 50 % in Water (Vial) 50 ML VIAL IVP PRN (23:15)
[2021-01-08] MEDS: Insulin LISPRO 300 UNITS/3 ML VIAL SUBQ SCH ×5 (00:30→23:20)
[2021-01-08 03:43] LABS: Hematocrit 38.8 % (37.5-50.1); Hemoglobin 12.4 g/dL (12.9-16.9); Mean Corpuscular Hemoglobin 25.8 pg (28.0-33.3); Mean Corpuscular Volume 80.8 fL (83.0-100.0); Mean Platelet Volume 11.1 fL (9.4-12.4); Platelet Count 287 K/mcL (140-400); Red Cell Distribution Width 19.5 % (11.5-14.5); White Blood Count 13.1 K/mcL (4.3-11.1)
[2021-01-08 04:02] LABS: BUN/Creatinine Ratio 17 (6-26); Blood Urea Nitrogen 10 mg/dL (8-23); Carbon Dioxide 26 mEq/L (23-29); Chloride 101 mEq/L (98-107); Glucose 142 mg/dL (70-105); Osmolality,Calculated 285 (280-300); Potassium 3.7 mEq/L (3.5-5.1); Sodium 137 mEq/L (136-145); eGFR For African Americans > 60 (> 60); eGFR For Non-African Americans > 60 (> 60)
[2021-01-08] MEDS: Ondansetron 4 MG/2 ML VIAL IVP PRN ×2 (09:44→17:53)
[2021-01-08] MEDS: *HR* Metoprolol 5 MG/5 ML VIAL IVP SCH (18:46)
[2021-01-08] MEDS ORDERED: Dicyclomine 20 MG/2 ML AMPUL IM PRN (18:52)
[2021-01-08] MEDS: Budesonide/Formoterol 160/4.5 1 PUFF INH IH SCH (19:44)
[2021-01-08 20:43] LABS: Hematocrit 40.2 % (37.5-50.1); Hemoglobin 13.1 g/dL (12.9-16.9)
[2021-01-08] MEDS ORDERED: Prochlorperazine 10 MG/2 ML VIAL IVP PRN (20:58)
[2021-01-09 06:14] LABS: Basophils # 0.1 K/mcL (0.0-0.2); Basophils % 0.7 %; Eosinophils # 0.2 K/mcL (0.0-0.6); Eosinophils % 2.6 %; Hematocrit 38.8 % (37.5-50.1); Hemoglobin 12.5 g/dL (12.9-16.9); Immature Granulocytes % 0.4 % (0-4); Lymphocytes # 1.5 K/mcL (0.6-4.6); Lymphocytes % 18.2 %; Mean Corpuscular HGB Conc 32.2 g/dL (31.6-35.5); Mean Corpuscular Hemoglobin 26.4 pg (28.0-33.3); Mean Corpuscular Volume 81.9 fL (83.0-100.0); Mean Platelet Volume 11.4 fL (9.4-12.4); Monocytes # 0.7 K/mcL (0.0-1.3); Neutrophils # 5.5 K/mcL (1.6-8.9); Platelet Count 297 K/mcL (140-400); Red Blood Count 4.74 M/mcL (4.19-5.50); Red Cell Distribution Width 19.6 % (11.5-14.5); Segmented Neutrophils % 69.1 %
[2021-01-09 06:30] LABS: BUN/Creatinine Ratio 18 (6-26); Blood Urea Nitrogen 11 mg/dL (8-23); Carbon Dioxide 27 mEq/L (23-29); Chloride 103 mEq/L (98-107); Glucose 105 mg/dL (70-105); Osmolality,Calculated 286 (280-300); Potassium 3.8 mEq/L (3.5-5.1); Sodium 138 mEq/L (136-145); eGFR For African Americans > 60 (> 60); eGFR For Non-African Americans > 60 (> 60)
[2021-01-09] MEDS: *HR* Metoprolol 5 MG/5 ML VIAL IVP SCH ×4 (06:31→17:19)
[2021-01-09] MEDS: Insulin LISPRO 300 UNITS/3 ML VIAL SUBQ SCH ×2 (06:35→14:00)
[2021-01-09] MEDS: Budesonide/Formoterol 160/4.5 1 PUFF INH IH SCH ×2 (07:43→21:27)
[2021-01-09] MEDS: Pantoprazole 40 MG VIAL IVP SCH (08:01)
[2021-01-09 10:10] LABS: Calcium 8.9 mg/dL (8.6-10.3)
[2021-01-09] MEDS ORDERED: Insulin LISPRO 300 UNITS/3 ML VIAL SUBQ SCH ×2 (16:33→21:00)
[2021-01-09] MEDS: Benzocaine/Menthol 56 GM AEROSOL SPRAY TP PRN (17:58)
[2021-01-10 01:35] LABS: Basophils # 0.1 K/mcL (0.0-0.2); Basophils % 1.1 %; Eosinophils # 0.2 K/mcL (0.0-0.6); Eosinophils % 3.5 %; Hematocrit 38.6 % (37.5-50.1); Hemoglobin 12.2 g/dL (12.9-16.9); Immature Granulocytes % 0.3 % (0-4); Lymphocytes # 1.4 K/mcL (0.6-4.6); Lymphocytes % 21.3 %; Mean Corpuscular HGB Conc 31.6 g/dL (31.6-35.5); Mean Corpuscular Hemoglobin 25.5 pg (28.0-33.3); Mean Corpuscular Volume 80.6 fL (83.0-100.0); Mean Platelet Volume 11.3 fL (9.4-12.4); Monocytes # 0.7 K/mcL (0.0-1.3); Monocytes % 10.6 %; Neutrophils # 4.1 K/mcL (1.6-8.9); Platelet Count 277 K/mcL (140-400); Red Blood Count 4.79 M/mcL (4.19-5.50); Red Cell Distribution Width 19.1 % (11.5-14.5); Segmented Neutrophils % 63.2 %; White Blood Count 6.5 K/mcL (4.3-11.1)
[2021-01-10 01:47] LABS: BUN/Creatinine Ratio 15 (6-26); Blood Urea Nitrogen 9 mg/dL (8-23); Carbon Dioxide 24 mEq/L (23-29); Chloride 102 mEq/L (98-107); Glucose 155 mg/dL (70-105); Osmolality,Calculated 284 (280-300); Potassium 3.6 mEq/L (3.5-5.1); Sodium 136 mEq/L (136-145); eGFR For African Americans > 60 (> 60); eGFR For Non-African Americans > 60 (> 60)
[2021-01-10] MEDS: *HR* Metoprolol 5 MG/5 ML VIAL IVP SCH ×2 (02:03→07:16)
[2021-01-10] MEDS: Pantoprazole 40 MG VIAL IVP SCH (08:02)
[2021-01-10] MEDS: Benzocaine/Menthol 56 GM AEROSOL SPRAY TP PRN (08:02)
[2021-01-10] MEDS: Budesonide/Formoterol 160/4.5 1 PUFF INH IH SCH (08:12)
[2021-01-10 08:18] VITALS: BP 146/83; PULSE 64; TEMP 97.8; O2SAT 92
== END 2021-01-10 11:46 | disposition home or self-care (01) ==
LOC: 3ANU 14:51 → EMEROOARM 14:51 → SUATTDRO 21:25 → 3ANU 22:20 → 3BNU 01-09 23:35
PROVIDERS: ADMIT Internal Medicine; ATTEND Internal Medicine

== ENCOUNTER 2021-03-30 17:07 | Observation (INO) ==
[2021-03-30 19:21] LABS: Basophils # 0.1 K/mcL (0.0-0.2); Basophils % 0.6 %; Eosinophils # 0.1 K/mcL (0.0-0.6); Eosinophils % 0.8 %; Hematocrit 43.3 % (37.5-50.1); Hemoglobin 14.1 g/dL (12.9-16.9); Immature Granulocytes % 0.3 % (0-4); Lymphocytes # 1.4 K/mcL (0.6-4.6); Lymphocytes % 12.4 %; Mean Corpuscular HGB Conc 32.6 g/dL (31.6-35.5); Mean Corpuscular Hemoglobin 28.4 pg (28.0-33.3); Mean Corpuscular Volume 87.3 fL (83.0-100.0); Mean Platelet Volume 11.1 fL (9.4-12.4); Monocytes # 0.9 K/mcL (0.0-1.3); Monocytes % 7.4 %; Neutrophils # 9.1 K/mcL (1.6-8.9); Platelet Count 243 K/mcL (140-400); Red Blood Count 4.96 M/mcL (4.19-5.50); Red Cell Distribution Width 15.6 % (11.5-14.5); Segmented Neutrophils % 78.5 %; White Blood Count 11.6 K/mcL (4.3-11.1)
[2021-03-30 19:41] LABS: Alanine Aminotransferase 49 Units/L (7-52); Albumin 4.2 g/dL (3.5-5.7); Albumin/Globulin Ratio 1.4 (1.1-2.2); Alkaline Phosphatase 91 Units/L (34-104); Amylase 17 Units/L (29-103); Aspartate Amino Transferase 29 Units/L (13-39); BUN/Creatinine Ratio 16 (6-26); Bilirubin,Direct 0.1 mg/dL (0.0-0.2); Bilirubin,Indirect 0.2 mg/dL (0.0-1.0); Bilirubin,Total 0.3 mg/dL (0.3-1.0); Blood Urea Nitrogen 11 mg/dL (8-23); Calcium 9.4 mg/dL (8.6-10.3); Carbon Dioxide 28 mEq/L (23-29); Chloride 100 mEq/L (98-107); Globulin 2.9 g/dL (2.4-3.5); Glucose 134 mg/dL (70-105); Lipase 22 Units/L (11-82); Osmolality,Calculated 285 (280-300); Potassium 3.9 mEq/L (3.5-5.1); Sodium 137 mEq/L (136-145); Total Protein 7.1 g/dL (6.4-8.9); eGFR For African Americans > 60 (> 60); eGFR For Non-African Americans > 60 (> 60)
[2021-03-30] MEDS ORDERED: *HR* FentaNYL (PF) 100 MCG/2 ML VIAL IVP STA ×2 (20:05→21:27)
[2021-03-30] MEDS ORDERED: 0.9 % Sodium Chloride 1,000 ML IVC ONE (20:05)
[2021-03-30] MEDS ORDERED: Ondansetron 4 MG/2 ML VIAL IVP ONE (20:05)
[2021-03-30 20:49] LABS: Bilirubin,Urine Negative (Negative); Blood,Urine Negative (Negative); Clarity,Urine Clear (Clear); Color,Urine Light-Yellow (Yellow); Glucose,Urine (UA) Normal (Normal); Ketones,Urine Negative (Negative); Leukocyte Esterase,Urine Negative (Negative); Nitrite,Urine Negative (Negative); PH,Urine 6.5 pH Units (5.0-8.0); Protein,Urine Trace mg/dL (Neg-Trace); Specific Gravity,Urine 1.025 (1.010-1.025)
[2021-03-30] MEDS ORDERED: Naloxone 0.4 MG/ML INJ IVP PRN (22:25)
[2021-03-30] MEDS ORDERED: Ondansetron 4 MG/2 ML VIAL IVP PRN (22:25)
[2021-03-30] MEDS ORDERED: Dextrose Gel 15 GM/37.5 ML TUBE PO PRN ×2 (22:31)
[2021-03-30] MEDS ORDERED: *HR* Dextrose 50 % in Water (Syg) 50 ML SYRINGE IVP PRN (22:31)
[2021-03-30] MEDS ORDERED: D5% in Water 1,000 ML IVC PRN (22:31)
[2021-03-30] MEDS: 0.9 % Sodium Chloride 1,000 ML IVC SCH (22:41)
[2021-03-30 23:41] LABS: Influenza A PCR Negative (Negative); Influenza B PCR Negative (Negative); Resp. Syncytial Virus PCR Negative (Negative)
[2021-03-30 23:43] LABS: SARS-CoV-2 by PCR (In House) Negative (Negative)
[2021-03-31] MEDS: Insulin LISPRO 300 UNITS/3 ML VIAL SUBQ SCH ×4 (02:52→16:52)
[2021-03-31] MEDS: *HR* HYDROmorphone (PF) 1 MG/ML SYRINGE IVP PRN ×2 (03:38→12:45)
[2021-03-31 07:25] LABS: Basophils # 0.1 K/mcL (0.0-0.2); Basophils % 0.7 %; Eosinophils # 0.1 K/mcL (0.0-0.6); Eosinophils % 1.6 %; Hematocrit 40.5 % (37.5-50.1); Hemoglobin 13.3 g/dL (12.9-16.9); Immature Granulocytes % 0.2 % (0-4); Lymphocytes # 1.6 K/mcL (0.6-4.6); Lymphocytes % 19.5 %; Mean Corpuscular HGB Conc 32.8 g/dL (31.6-35.5); Mean Corpuscular Hemoglobin 28.8 pg (28.0-33.3); Mean Corpuscular Volume 87.7 fL (83.0-100.0); Mean Platelet Volume 11.5 fL (9.4-12.4); Monocytes # 0.8 K/mcL (0.0-1.3); Monocytes % 9.7 %; Neutrophils # 5.6 K/mcL (1.6-8.9); Platelet Count 237 K/mcL (140-400); Red Blood Count 4.62 M/mcL (4.19-5.50); Segmented Neutrophils % 68.3 %; White Blood Count 8.2 K/mcL (4.3-11.1)
[2021-03-31 07:33] LABS: INR 1.2; Prothrombin Time 13.2 Seconds (9.4-12.1)
[2021-03-31 08:01] LABS: BUN/Creatinine Ratio 17 (6-26); Blood Urea Nitrogen 10 mg/dL (8-23); Calcium 8.7 mg/dL (8.6-10.3); Carbon Dioxide 26 mEq/L (23-29); Chloride 103 mEq/L (98-107); Glucose 111 mg/dL (70-105); Magnesium 1.7 mg/dL (1.6-2.6); Osmolality,Calculated 286 (280-300); Potassium 3.7 mEq/L (3.5-5.1); Sodium 138 mEq/L (136-145); eGFR For African Americans > 60 (> 60); eGFR For Non-African Americans > 60 (> 60)
[2021-03-31] MEDS ORDERED: *HR* Metoprolol 5 MG/5 ML VIAL IVP PRN (10:54)
[2021-03-31] MEDS: 0.9 % Sodium Chloride 1,000 ML IVC SCH (13:10)
[2021-03-31] MEDS: Pantoprazole 40 MG VIAL IVP SCH (18:16)
[2021-03-31] MEDS ORDERED: Chloraseptic Spray 177 ML BOTTLE MM PRN (18:17)
[2021-04-01] MEDS: Insulin LISPRO 300 UNITS/3 ML VIAL SUBQ SCH ×4 (02:24→23:00)
[2021-04-01 02:25] LABS: Basophils # 0.1 K/mcL (0.0-0.2); Basophils % 0.6 %; Eosinophils # 0.2 K/mcL (0.0-0.6); Hematocrit 40.6 % (37.5-50.1); Hemoglobin 13.3 g/dL (12.9-16.9); Immature Granulocytes % 0.3 % (0-4); Lymphocytes # 1.3 K/mcL (0.6-4.6); Lymphocytes % 14.3 %; Mean Corpuscular HGB Conc 32.8 g/dL (31.6-35.5); Mean Corpuscular Hemoglobin 28.6 pg (28.0-33.3); Mean Corpuscular Volume 87.3 fL (83.0-100.0); Mean Platelet Volume 11.7 fL (9.4-12.4); Monocytes # 0.8 K/mcL (0.0-1.3); Monocytes % 8.8 %; Neutrophils # 6.7 K/mcL (1.6-8.9); Platelet Count 214 K/mcL (140-400); Red Blood Count 4.65 M/mcL (4.19-5.50); Red Cell Distribution Width 15.9 % (11.5-14.5)
[2021-04-01 02:38] LABS: BUN/Creatinine Ratio 15 (6-26); Blood Urea Nitrogen 9 mg/dL (8-23); Calcium 8.7 mg/dL (8.6-10.3); Carbon Dioxide 27 mEq/L (23-29); Chloride 102 mEq/L (98-107); Glucose 102 mg/dL (70-105); Magnesium 1.7 mg/dL (1.6-2.6); Osmolality,Calculated 281 (280-300); Phosphorous 3.3 mg/dL (2.7-4.5); Potassium 3.8 mEq/L (3.5-5.1); Sodium 136 mEq/L (136-145); eGFR For African Americans > 60 (> 60); eGFR For Non-African Americans > 60 (> 60)
[2021-04-01] MEDS ORDERED: *HR* Labetalol 20 MG/4 ML SYRINGE IVP ONE (02:52)
[2021-04-01] MEDS: Pantoprazole 40 MG VIAL IVP SCH ×2 (04:59→16:05)
[2021-04-01] MEDS ORDERED: 0.9 % Sodium Chloride 1,000 ML IVC SCH (08:45)
[2021-04-01] MEDS ORDERED: Acetaminophen 325 MG TABLET PO PRN (09:53)
[2021-04-01] MEDS: 0.9 % Sodium Chloride 1,000 ML IVC SCH (10:37)
[2021-04-01] MEDS: DilTIAZem CD (24hr) 120 MG CAP.ER.24H PO SCH (10:40)
[2021-04-01] MEDS: Isosorbide MONOnitrate (24 HR) 60 MG TAB.ER.24H PO SCH (10:40)
[2021-04-01] MEDS: Apixaban 5 MG TABLET PO SCH ×2 (10:40→22:10)
[2021-04-01] MEDS: Budesonide/Formoterol 160/4.5 1 PUFF INH IH SCH ×2 (12:00→21:13)
[2021-04-01] MEDS: Metoprolol 100 MG TABLET PO SCH (22:10)
[2021-04-01] MEDS: Gabapentin 300 MG CAPSULE PO SCH (22:10)
[2021-04-02 01:40] LABS: Basophils # 0.1 K/mcL (0.0-0.2); Basophils % 0.6 %; Eosinophils # 0.2 K/mcL (0.0-0.6); Eosinophils % 2.1 %; Hematocrit 41.4 % (37.5-50.1); Hemoglobin 13.5 g/dL (12.9-16.9); Immature Granulocytes % 0.1 % (0-4); Lymphocytes # 1.4 K/mcL (0.6-4.6); Mean Corpuscular HGB Conc 32.6 g/dL (31.6-35.5); Mean Corpuscular Hemoglobin 28.3 pg (28.0-33.3); Mean Corpuscular Volume 86.8 fL (83.0-100.0); Mean Platelet Volume 11.8 fL (9.4-12.4); Monocytes # 0.9 K/mcL (0.0-1.3); Neutrophils # 5.3 K/mcL (1.6-8.9); Platelet Count 233 K/mcL (140-400); Red Blood Count 4.77 M/mcL (4.19-5.50); Red Cell Distribution Width 15.8 % (11.5-14.5); Segmented Neutrophils % 68.2 %; White Blood Count 7.8 K/mcL (4.3-11.1)
[2021-04-02 01:59] LABS: BUN/Creatinine Ratio 11 (6-26); Blood Urea Nitrogen 7 mg/dL (8-23); Calcium 9.1 mg/dL (8.6-10.3); Carbon Dioxide 28 mEq/L (23-29); Chloride 101 mEq/L (98-107); Glucose 115 mg/dL (70-105); Osmolality,Calculated 283 (280-300); Potassium 3.7 mEq/L (3.5-5.1); Sodium 137 mEq/L (136-145); eGFR For African Americans > 60 (> 60); eGFR For Non-African Americans > 60 (> 60)
[2021-04-02 02:40] VITALS: PULSE 57
[2021-04-02] MEDS: Pantoprazole 40 MG VIAL IVP SCH (05:55)
[2021-04-02] MEDS: 0.9 % Sodium Chloride 1,000 ML IVC SCH (05:57)
[2021-04-02 06:59] VITALS: BP 170/85; TEMP 98.3; O2SAT 96
[2021-04-02] MEDS: Budesonide/Formoterol 160/4.5 1 PUFF INH IH SCH (08:08)
[2021-04-02] MEDS ORDERED: Aspirin Enteric Coated 81 MG Tablet PO SCH (09:00)
[2021-04-02] MEDS: Insulin LISPRO 300 UNITS/3 ML VIAL SUBQ SCH (09:28)
[2021-04-02] MEDS: Gabapentin 300 MG CAPSULE PO SCH (10:01)
[2021-04-02] MEDS: Apixaban 5 MG TABLET PO SCH (10:01)
[2021-04-02] MEDS: DilTIAZem CD (24hr) 120 MG CAP.ER.24H PO SCH (10:02)
[2021-04-02] MEDS: Isosorbide MONOnitrate (24 HR) 60 MG TAB.ER.24H PO SCH (10:02)
[2021-04-02] MEDS: Metoprolol 100 MG TABLET PO SCH (10:02)
== END 2021-04-02 11:29 | disposition home or self-care (01) ==
LOC: 3BNU 17:07 → EMEROOARM 17:07 → SUATTDRO 03-31 00:13 → 3BNU 03-31 01:50
PROVIDERS: ADMIT Student in an Organized Health Care Education/Training Program; ATTEND Internal Medicine

== ENCOUNTER 2021-04-15 12:50 | Inpatient (IN) ==
[2021-04-15] MEDS ORDERED: *HR* FentaNYL (PF) 100 MCG/2 ML VIAL IVP ONE ×3 (13:13→22:36)
[2021-04-15] MEDS ORDERED: Ondansetron 4 MG/2 ML VIAL IVP ONE ×3 (13:13→21:14)
[2021-04-15 13:21] LABS: Basophils % 0.2 %; Hematocrit 45.4 % (37.5-50.1); Immature Granulocytes % 0.3 % (0-4); Lymphocytes # 0.9 K/mcL (0.6-4.6); Mean Corpuscular Hemoglobin 28.4 pg (28.0-33.3); Mean Platelet Volume 11.2 fL (9.4-12.4); Monocytes # 1.7 K/mcL (0.0-1.3); Monocytes % 11.5 %; Neutrophils # 12.3 K/mcL (1.6-8.9); Platelet Count 282 K/mcL (140-400); Red Blood Count 5.28 M/mcL (4.19-5.50); Red Cell Distribution Width 14.6 % (11.5-14.5)
[2021-04-15 13:51] LABS: Bilirubin,Urine Negative (Negative); Blood,Urine Small (Negative); Clarity,Urine Clear (Clear); Color,Urine Yellow (Yellow); Glucose,Urine (UA) 200 mg/dL (Normal); Hyaline Casts,Urine Few per lpf (None Seen); Ketones,Urine 10 mg/dL (Negative); Leukocyte Esterase,Urine Negative (Negative); Mucus,Urine Few per lpf (None-Few); Nitrite,Urine Negative (Negative); Protein,Urine 100 mg/dL (Neg-Trace); Specific Gravity,Urine > 1.030 (1.010-1.025); Squamous Epithelial Cell,Urine Few per hpf (None-Few); Urobilinogen,Urine Normal (Normal); WBC,Urine 0-3 per hpf (0-3)
[2021-04-15 14:45] LABS: Alanine Aminotransferase 50 Units/L (7-52); Albumin 4.3 g/dL (3.5-5.7); Albumin/Globulin Ratio 1.3 (1.1-2.2); Alkaline Phosphatase 90 Units/L (34-104); Aspartate Amino Transferase 25 Units/L (13-39); BUN/Creatinine Ratio 17 (6-26); Bilirubin,Direct 0.1 mg/dL (0.0-0.2); Bilirubin,Indirect 0.5 mg/dL (0.0-1.0); Bilirubin,Total 0.6 mg/dL (0.3-1.0); Blood Urea Nitrogen 11 mg/dL (8-23); Calcium 9.1 mg/dL (8.6-10.3); Carbon Dioxide 26 mEq/L (23-29); Chloride 97 mEq/L (98-107); Globulin 3.3 g/dL (2.4-3.5); Glucose 202 mg/dL (70-105); Lipase < 3 Units/L (11-82); Osmolality,Calculated 283 (280-300); Sodium 134 mEq/L (136-145); Total Protein 7.6 g/dL (6.4-8.9); eGFR For African Americans > 60 (> 60); eGFR For Non-African Americans > 60 (> 60)
[2021-04-15] MEDS ORDERED: *HR* HYDROmorphone (PF) 1 MG/ML SYRINGE IVP ONE ×2 (15:51→18:00)
[2021-04-16] MEDS ORDERED: *HR* Promethazine 25 MG/ML VIAL IM PRN (02:37)
[2021-04-16] MEDS ORDERED: Naloxone 0.4 MG/ML INJ IVP PRN (02:37)
[2021-04-16] MEDS ORDERED: *HR* Dextrose 50 % in Water (Syg) 50 ML SYRINGE IVP PRN (02:45)
[2021-04-16] MEDS ORDERED: D5% in Water 1,000 ML IVC PRN (02:45)
[2021-04-16] MEDS ORDERED: Dextrose Gel 15 GM/37.5 ML TUBE PO PRN ×2 (02:45)
[2021-04-16] MEDS: 0.9 % Sodium Chloride 1,000 ML IVC SCH ×2 (03:45→17:54)
[2021-04-16] MEDS: Ondansetron 4 MG/2 ML VIAL IVP PRN (03:46)
[2021-04-16] MEDS ORDERED: *HR* HYDROmorphone (PF) 1 MG/ML SYRINGE IVP ONE (05:59)
[2021-04-16] MEDS: Insulin LISPRO 300 UNITS/3 ML VIAL SUBQ SCH ×4 (06:11→23:44)
[2021-04-16 06:36] LABS: Hematocrit 44.9 % (37.5-50.1); Hemoglobin 15.1 g/dL (12.9-16.9); Mean Corpuscular HGB Conc 33.6 g/dL (31.6-35.5); Mean Corpuscular Hemoglobin 29.3 pg (28.0-33.3); Platelet Count 309 K/mcL (140-400); Red Blood Count 5.16 M/mcL (4.19-5.50); Red Cell Distribution Width 14.6 % (11.5-14.5); White Blood Count 10.3 K/mcL (4.3-11.1)
[2021-04-16 06:50] LABS: BUN/Creatinine Ratio 22 (6-26); Blood Urea Nitrogen 16 mg/dL (8-23); Carbon Dioxide 26 mEq/L (23-29); Chloride 97 mEq/L (98-107); Glucose 202 mg/dL (70-105); Osmolality,Calculated 289 (280-300); Potassium 3.7 mEq/L (3.5-5.1); Sodium 136 mEq/L (136-145); eGFR For African Americans > 60 (> 60); eGFR For Non-African Americans > 60 (> 60)
[2021-04-16] MEDS: Budesonide/Formoterol 160/4.5 1 PUFF INH IH SCH ×2 (08:33→21:06)
[2021-04-16] MEDS: *HR* Metoprolol 5 MG/5 ML VIAL IVP SCH ×4 (08:35→23:24)
[2021-04-16] MEDS: Pantoprazole 40 MG VIAL IVP SCH (08:35)
[2021-04-16] MEDS: *HR* Heparin 5,000 UNIT/ML VIAL SQ SCH ×2 (12:34→23:24)
[2021-04-16] MEDS: Hyoscyamine SL 0.125 MG TAB.SUBL SL SCH ×2 (16:44→20:48)
[2021-04-17] MEDS ORDERED: *HR* Metoprolol 5 MG/5 ML VIAL IVP ONE (02:20)
[2021-04-17] MEDS: *HR* Metoprolol 5 MG/5 ML VIAL IVP SCH ×2 (06:19→11:24)
[2021-04-17] MEDS: *HR* Heparin 5,000 UNIT/ML VIAL SQ SCH ×3 (06:19→21:06)
[2021-04-17] MEDS: 0.9 % Sodium Chloride 1,000 ML IVC SCH ×2 (06:19→21:05)
[2021-04-17] MEDS: Insulin LISPRO 300 UNITS/3 ML VIAL SUBQ SCH ×3 (06:20→18:05)
[2021-04-17] MEDS: Pantoprazole 40 MG VIAL IVP SCH (07:18)
[2021-04-17] MEDS: Hyoscyamine SL 0.125 MG TAB.SUBL SL SCH ×3 (07:18→21:06)
[2021-04-17] MEDS: Budesonide/Formoterol 160/4.5 1 PUFF INH IH SCH ×2 (08:03→21:48)
[2021-04-17 10:23] LABS: Basophils # 0.1 K/mcL (0.0-0.2); Basophils % 1.2 %; Eosinophils # 0.1 K/mcL (0.0-0.6); Eosinophils % 1.8 %; Hematocrit 43.5 % (37.5-50.1); Hemoglobin 13.9 g/dL (12.9-16.9); Immature Granulocytes % 0.2 % (0-4); Lymphocytes # 1.2 K/mcL (0.6-4.6); Lymphocytes % 20.4 %; Mean Corpuscular Hemoglobin 28.7 pg (28.0-33.3); Mean Corpuscular Volume 89.9 fL (83.0-100.0); Mean Platelet Volume 11.9 fL (9.4-12.4); Monocytes % 15.6 %; Neutrophils # 3.7 K/mcL (1.6-8.9); Platelet Count 254 K/mcL (140-400); Red Blood Count 4.84 M/mcL (4.19-5.50); Red Cell Distribution Width 14.9 % (11.5-14.5); Segmented Neutrophils % 60.8 %; White Blood Count 6.1 K/mcL (4.3-11.1)
[2021-04-17 10:44] LABS: BUN/Creatinine Ratio 24 (6-26); Blood Urea Nitrogen 14 mg/dL (8-23); Calcium 8.8 mg/dL (8.6-10.3); Carbon Dioxide 24 mEq/L (23-29); Chloride 105 mEq/L (98-107); Glucose 128 mg/dL (70-105); Osmolality,Calculated 290 (280-300); Potassium 3.6 mEq/L (3.5-5.1); Sodium 139 mEq/L (136-145); eGFR For African Americans > 60 (> 60); eGFR For Non-African Americans > 60 (> 60)
[2021-04-17 10:47] LABS: Phosphorous 2.8 mg/dL (2.7-4.5)
[2021-04-17] MEDS ORDERED: *HR* Metoprolol 5 MG/5 ML VIAL IVP PRN (12:37)
[2021-04-17] MEDS: Apixaban 5 MG TABLET PO SCH ×2 (13:17→21:06)
[2021-04-17] MEDS: Metoprolol 100 MG TABLET PO SCH ×2 (13:17→21:06)
[2021-04-17] MEDS: Aspirin Enteric Coated 81 MG Tablet PO SCH (13:17)
[2021-04-17] MEDS: DilTIAZem CD (24hr) 120 MG CAP.ER.24H PO SCH (13:17)
[2021-04-17] MEDS ORDERED: *HR* HYDROmorphone (PF) 1 MG/ML SYRINGE IVP ONE ×2 (15:59→19:54)
[2021-04-17] MEDS ORDERED: Isovue-370 500 ML BOTTLE IVP ONE (16:38)
[2021-04-17] MEDS ORDERED: Chloraseptic Spray 177 ML BOTTLE MM PRN (20:51)
[2021-04-17] MEDS: Gabapentin 300 MG CAPSULE PO SCH (21:06)
[2021-04-17] MEDS ORDERED: Acetaminophen IV 1,000 MG/100 ML BAG IVPB ONE (22:30)
[2021-04-18] MEDS: Insulin LISPRO 300 UNITS/3 ML VIAL SUBQ SCH ×4 (01:02→17:44)
[2021-04-18 01:58] LABS: Basophils % 0.5 %; Eosinophils # 0.1 K/mcL (0.0-0.6); Eosinophils % 0.8 %; Hematocrit 43.3 % (37.5-50.1); Hemoglobin 14.5 g/dL (12.9-16.9); Immature Granulocytes % 0.3 % (0-4); Lymphocytes # 1.1 K/mcL (0.6-4.6); Lymphocytes % 15.2 %; Mean Corpuscular HGB Conc 33.5 g/dL (31.6-35.5); Mean Corpuscular Hemoglobin 29.7 pg (28.0-33.3); Mean Corpuscular Volume 88.7 fL (83.0-100.0); Mean Platelet Volume 11.6 fL (9.4-12.4); Monocytes # 1.2 K/mcL (0.0-1.3); Monocytes % 15.8 %; Platelet Count 304 K/mcL (140-400); Red Blood Count 4.88 M/mcL (4.19-5.50); Red Cell Distribution Width 14.6 % (11.5-14.5); Segmented Neutrophils % 67.4 %; White Blood Count 7.4 K/mcL (4.3-11.1)
[2021-04-18 02:16] LABS: BUN/Creatinine Ratio 19 (6-26); Blood Urea Nitrogen 12 mg/dL (8-23); Calcium 9.1 mg/dL (8.6-10.3); Carbon Dioxide 24 mEq/L (23-29); Chloride 103 mEq/L (98-107); Glucose 147 mg/dL (70-105); Magnesium 1.9 mg/dL (1.6-2.6); Osmolality,Calculated 288 (280-300); Phosphorous 3.6 mg/dL (2.7-4.5); Potassium 3.5 mEq/L (3.5-5.1); Sodium 138 mEq/L (136-145); eGFR For African Americans > 60 (> 60); eGFR For Non-African Americans > 60 (> 60)
[2021-04-18] MEDS: *HR* Heparin 5,000 UNIT/ML VIAL SQ SCH ×3 (07:22→22:57)
[2021-04-18] MEDS: Gabapentin 300 MG CAPSULE PO SCH ×2 (08:49→20:14)
[2021-04-18] MEDS: Apixaban 5 MG TABLET PO SCH ×2 (08:49→21:13)
[2021-04-18] MEDS: DilTIAZem CD (24hr) 120 MG CAP.ER.24H PO SCH (08:49)
[2021-04-18] MEDS: Aspirin Enteric Coated 81 MG Tablet PO SCH (08:49)
[2021-04-18] MEDS: Metoprolol 100 MG TABLET PO SCH (08:49)
[2021-04-18] MEDS: Hyoscyamine SL 0.125 MG TAB.SUBL SL SCH ×3 (08:52→20:13)
[2021-04-18] MEDS: Pantoprazole 40 MG VIAL IVP SCH (08:52)
[2021-04-18] MEDS: 0.9 % Sodium Chloride 1,000 ML IVC SCH (10:28)
[2021-04-18] MEDS: Ondansetron 4 MG/2 ML VIAL IVP PRN (11:08)
[2021-04-18] MEDS: Budesonide/Formoterol 160/4.5 1 PUFF INH IH SCH ×2 (11:18→20:40)
[2021-04-18] MEDS: *HR* Metoprolol 5 MG/5 ML VIAL IVP SCH ×3 (13:23→23:01)
[2021-04-18] MEDS ORDERED: Acetaminophen IV 1,000 MG/100 ML BAG IVPB ONE (13:37)
[2021-04-18] MEDS ORDERED: *HR* Enoxaparin 100 MG/ML SYRINGE SQ ONE (22:00)
[2021-04-18] MEDS ORDERED: *HR* LORazepam 2 MG/ML VIAL IVP ONE (23:56)
[2021-04-19] MEDS: Insulin LISPRO 300 UNITS/3 ML VIAL SUBQ SCH ×4 (00:06→18:29)
[2021-04-19 02:47] LABS: Basophils % 0.6 %; Eosinophils # 0.1 K/mcL (0.0-0.6); Eosinophils % 1.6 %; Hematocrit 41.9 % (37.5-50.1); Hemoglobin 13.4 g/dL (12.9-16.9); Immature Granulocytes % 0.1 % (0-4); Lymphocytes # 1.4 K/mcL (0.6-4.6); Lymphocytes % 19.6 %; Mean Corpuscular Hemoglobin 28.7 pg (28.0-33.3); Mean Corpuscular Volume 89.7 fL (83.0-100.0); Mean Platelet Volume 11.6 fL (9.4-12.4); Monocytes # 0.8 K/mcL (0.0-1.3); Monocytes % 11.2 %; Neutrophils # 4.7 K/mcL (1.6-8.9); Platelet Count 263 K/mcL (140-400); Red Blood Count 4.67 M/mcL (4.19-5.50); Red Cell Distribution Width 14.9 % (11.5-14.5); Segmented Neutrophils % 66.9 %
[2021-04-19 03:00] LABS: BUN/Creatinine Ratio 19 (6-26); Blood Urea Nitrogen 11 mg/dL (8-23); Calcium 8.7 mg/dL (8.6-10.3); Carbon Dioxide 21 mEq/L (23-29); Chloride 112 mEq/L (98-107); Glucose 104 mg/dL (70-105); Magnesium 1.8 mg/dL (1.6-2.6); Osmolality,Calculated 294 (280-300); Potassium 3.5 mEq/L (3.5-5.1); Sodium 142 mEq/L (136-145); eGFR For African Americans > 60 (> 60); eGFR For Non-African Americans > 60 (> 60)
[2021-04-19] MEDS: 0.9 % Sodium Chloride 1,000 ML IVC SCH ×3 (03:22→18:59)
[2021-04-19] MEDS: *HR* Heparin 5,000 UNIT/ML VIAL SQ SCH (05:34)
[2021-04-19] MEDS: *HR* Metoprolol 5 MG/5 ML VIAL IVP SCH ×3 (05:38→18:59)
[2021-04-19] MEDS: Budesonide/Formoterol 160/4.5 1 PUFF INH IH SCH ×2 (07:17→21:01)
[2021-04-19] MEDS: DilTIAZem CD (24hr) 120 MG CAP.ER.24H PO SCH (09:46)
[2021-04-19] MEDS: Gabapentin 300 MG CAPSULE PO SCH ×3 (09:46→21:14)
[2021-04-19] MEDS: Hyoscyamine SL 0.125 MG TAB.SUBL SL SCH ×3 (09:48→21:11)
[2021-04-19] MEDS: Pantoprazole 40 MG VIAL IVP SCH (09:48)
[2021-04-19] MEDS ORDERED: Acetaminophen IV 1,000 MG/100 ML BAG IVPB ONE ×2 (13:35→19:45)
[2021-04-19] MEDS ORDERED: *HR* LORazepam 2 MG/ML VIAL IVP ONE (19:47)
[2021-04-20] MEDS: Insulin LISPRO 300 UNITS/3 ML VIAL SUBQ SCH ×4 (00:01→18:00)
[2021-04-20] MEDS: *HR* Metoprolol 5 MG/5 ML VIAL IVP SCH ×4 (00:01→17:51)
[2021-04-20 03:06] LABS: Basophils # 0.1 K/mcL (0.0-0.2); Basophils % 1.1 %; Eosinophils # 0.3 K/mcL (0.0-0.6); Eosinophils % 3.8 %; Hematocrit 43.4 % (37.5-50.1); Immature Granulocytes % 1.1 % (0-4); Lymphocytes # 1.7 K/mcL (0.6-4.6); Lymphocytes % 22.6 %; Mean Corpuscular HGB Conc 32.3 g/dL (31.6-35.5); Mean Corpuscular Hemoglobin 28.8 pg (28.0-33.3); Mean Corpuscular Volume 89.3 fL (83.0-100.0); Mean Platelet Volume 11.5 fL (9.4-12.4); Monocytes # 0.6 K/mcL (0.0-1.3); Monocytes % 8.5 %; Neutrophils # 4.8 K/mcL (1.6-8.9); Platelet Count 261 K/mcL (140-400); Red Blood Count 4.86 M/mcL (4.19-5.50); Red Cell Distribution Width 14.6 % (11.5-14.5); Segmented Neutrophils % 62.9 %; White Blood Count 7.6 K/mcL (4.3-11.1)
[2021-04-20 03:21] LABS: BUN/Creatinine Ratio 17 (6-26); Blood Urea Nitrogen 10 mg/dL (8-23); Calcium 8.9 mg/dL (8.6-10.3); Carbon Dioxide 21 mEq/L (23-29); Chloride 107 mEq/L (98-107); Glucose 88 mg/dL (70-105); Magnesium 1.6 mg/dL (1.6-2.6); Osmolality,Calculated 288 (280-300); Phosphorous 3.8 mg/dL (2.7-4.5); Potassium 3.4 mEq/L (3.5-5.1); Sodium 140 mEq/L (136-145); eGFR For African Americans > 60 (> 60); eGFR For Non-African Americans > 60 (> 60)
[2021-04-20] MEDS: 0.9 % Sodium Chloride 1,000 ML IVC SCH ×2 (03:23→11:42)
[2021-04-20] MEDS ORDERED: *HR* HYDROmorphone (PF) 1 MG/ML SYRINGE IVP ONE (03:27)
[2021-04-20] MEDS: *HR* Heparin 5,000 UNIT/ML VIAL SQ SCH ×2 (06:06→13:34)
[2021-04-20] MEDS: Budesonide/Formoterol 160/4.5 1 PUFF INH IH SCH ×2 (07:38→20:19)
[2021-04-20] MEDS: Pantoprazole 40 MG VIAL IVP SCH (10:44)
[2021-04-20] MEDS: DilTIAZem CD (24hr) 120 MG CAP.ER.24H PO SCH (10:47)
[2021-04-20] MEDS: Hyoscyamine SL 0.125 MG TAB.SUBL SL SCH ×3 (10:47→21:22)
[2021-04-20] MEDS: Gabapentin 300 MG CAPSULE PO SCH ×2 (10:47→21:22)
[2021-04-20] MEDS ORDERED: *HR* Heparin 5,000 UNIT/ML VIAL IVP PRN ×2 (15:40)
[2021-04-20] MEDS ORDERED: *HR* Heparin 5,000 UNIT/ML VIAL IVP ONE (15:40)
[2021-04-20] MEDS ORDERED: Heparin 25,000UNIT/250ML 1/2NS 25,000 UNIT/250 ML IV.SOLN IVC SCH (15:45)
[2021-04-20] MEDS: 0.9 % Sodium Chloride w KCl 20 MEQ/1,000 ML MLS IVC SCH (17:52)
[2021-04-20] MEDS: Heparin 25,000 UNIT/250 ML 25,000 UNIT/250 ML IV.SOLN IVC SCH (17:55)
[2021-04-20] MEDS ORDERED: *HR* LORazepam 2 MG/ML VIAL IVP ONE (22:23)
[2021-04-21] MEDS: *HR* Metoprolol 5 MG/5 ML VIAL IVP SCH ×4 (00:16→17:16)
[2021-04-21] MEDS: Insulin LISPRO 300 UNITS/3 ML VIAL SUBQ SCH ×4 (00:17→17:06)
[2021-04-21 01:34] LABS: Hemoglobin 13.4 g/dL (12.9-16.9); Mean Corpuscular HGB Conc 33.5 g/dL (31.6-35.5); Mean Corpuscular Hemoglobin 29.7 pg (28.0-33.3); Mean Corpuscular Volume 88.7 fL (83.0-100.0); Mean Platelet Volume 11.8 fL (9.4-12.4); Platelet Count 245 K/mcL (140-400); Red Blood Count 4.51 M/mcL (4.19-5.50); Red Cell Distribution Width 14.6 % (11.5-14.5); White Blood Count 7.9 K/mcL (4.3-11.1)
[2021-04-21 01:47] LABS: INR 1.3; Prothrombin Time 14.6 Seconds (9.4-12.1)
[2021-04-21 01:48] LABS: BUN/Creatinine Ratio 16 (6-26); Blood Urea Nitrogen 8 mg/dL (8-23); Calcium 8.3 mg/dL (8.6-10.3); Carbon Dioxide 17 mEq/L (23-29); Chloride 106 mEq/L (98-107); Glucose 82 mg/dL (70-105); Osmolality,Calculated 279 (280-300); Potassium 3.4 mEq/L (3.5-5.1); Sodium 136 mEq/L (136-145); eGFR For African Americans > 60 (> 60); eGFR For Non-African Americans > 60 (> 60)
[2021-04-21 01:49] LABS: Activated Partial Thrombo Time 36.3 Seconds (26.0-36.0)
[2021-04-21] MEDS: 0.9 % Sodium Chloride w KCl 20 MEQ/1,000 ML MLS IVC SCH ×3 (02:14→16:51)
[2021-04-21] MEDS: Budesonide/Formoterol 160/4.5 1 PUFF INH IH SCH ×2 (07:58→20:29)
[2021-04-21] MEDS: Gabapentin 300 MG CAPSULE PO SCH ×2 (08:58→19:55)
[2021-04-21] MEDS: Hyoscyamine SL 0.125 MG TAB.SUBL SL SCH ×3 (08:58→19:55)
[2021-04-21] MEDS: Isosorbide MONOnitrate (24 HR) 60 MG TAB.ER.24H PO SCH (08:58)
[2021-04-21] MEDS: DilTIAZem CD (24hr) 120 MG CAP.ER.24H PO SCH (08:58)
[2021-04-21] MEDS: Pantoprazole 40 MG VIAL IVP SCH (08:59)
[2021-04-21] MEDS: Heparin 25,000 UNIT/250 ML 25,000 UNIT/250 ML IV.SOLN IVC SCH (13:21)
[2021-04-21] MEDS ORDERED: Nitroglycerin 0.4 MG TAB.SUBL SL PRN (18:38)
[2021-04-21] MEDS ORDERED: *HR* HYDROcodone/Acet 5/325 mg TABLET PO PRN (18:38)
[2021-04-21] MEDS ORDERED: Ipratropium/Albuterol Neb 3 ML IH PRN (18:41)
[2021-04-21] MEDS: *HR* Metformin 500 MG TABLET PO SCH (19:55)
[2021-04-21] MEDS: Apixaban 5 MG TABLET PO SCH (19:55)
[2021-04-21] MEDS: traZODone 50 MG TABLET PO PRN (23:24)
[2021-04-21] MEDS: Ondansetron ODT 4 MG TAB.RAPDIS SL SCH (23:25)
[2021-04-22] MEDS: Insulin LISPRO 300 UNITS/3 ML VIAL SUBQ SCH ×4 (02:05→18:42)
[2021-04-22] MEDS: 0.9 % Sodium Chloride w KCl 20 MEQ/1,000 ML MLS IVC SCH ×2 (02:12→23:00)
[2021-04-22 02:59] LABS: Hematocrit 40.8 % (37.5-50.1); Hemoglobin 13.2 g/dL (12.9-16.9); Mean Corpuscular HGB Conc 32.4 g/dL (31.6-35.5); Mean Corpuscular Hemoglobin 28.9 pg (28.0-33.3); Mean Corpuscular Volume 89.3 fL (83.0-100.0); Mean Platelet Volume 11.1 fL (9.4-12.4); Platelet Count 252 K/mcL (140-400); Red Blood Count 4.57 M/mcL (4.19-5.50); Red Cell Distribution Width 14.4 % (11.5-14.5); White Blood Count 11.9 K/mcL (4.3-11.1)
[2021-04-22 03:09] LABS: INR 1.6; Prothrombin Time 17.8 Seconds (9.4-12.1)
[2021-04-22 03:12] LABS: Activated Partial Thrombo Time 32.6 Seconds (26.0-36.0)
[2021-04-22 03:20] LABS: Magnesium 1.4 mg/dL (1.6-2.6); Phosphorous 3.5 mg/dL (2.7-4.5)
[2021-04-22 03:21] LABS: BUN/Creatinine Ratio 12 (6-26); Blood Urea Nitrogen 6 mg/dL (8-23); Calcium 8.8 mg/dL (8.6-10.3); Carbon Dioxide 17 mEq/L (23-29); Chloride 104 mEq/L (98-107); Glucose 89 mg/dL (70-105); Osmolality,Calculated 275 (280-300); Potassium 3.9 mEq/L (3.5-5.1); Sodium 134 mEq/L (136-145); eGFR For African Americans > 60 (> 60); eGFR For Non-African Americans > 60 (> 60)
[2021-04-22] MEDS: Ondansetron ODT 4 MG TAB.RAPDIS SL SCH ×3 (06:16→18:42)
[2021-04-22] MEDS: Budesonide/Formoterol 160/4.5 1 PUFF INH IH SCH ×2 (07:31→20:35)
[2021-04-22] MEDS: *HR* Metformin 500 MG TABLET PO SCH ×2 (09:15→21:05)
[2021-04-22] MEDS: Gabapentin 300 MG CAPSULE PO SCH ×2 (09:15→21:05)
[2021-04-22] MEDS: Hyoscyamine SL 0.125 MG TAB.SUBL SL SCH ×3 (09:15→21:06)
[2021-04-22] MEDS: Multivit/Ca/Min/Fe/FA 1 TAB TABLET PO SCH (09:15)
[2021-04-22] MEDS: Apixaban 5 MG TABLET PO SCH ×2 (09:16→21:06)
[2021-04-22] MEDS: Aspirin 81 MG TAB.CHEW PO SCH (09:16)
[2021-04-22] MEDS: Pantoprazole 40 MG VIAL IVP SCH (09:17)
[2021-04-22] MEDS: Isosorbide MONOnitrate (24 HR) 60 MG TAB.ER.24H PO SCH (09:17)
[2021-04-22] MEDS: DilTIAZem CD (24hr) 120 MG CAP.ER.24H PO SCH (09:17)
[2021-04-22] MEDS ORDERED: *HR* Metoprolol 5 MG/5 ML VIAL IVP ONE (11:14)
[2021-04-22] MEDS: *HR* Metoprolol 5 MG/5 ML VIAL IVP SCH (11:26)
[2021-04-22] MEDS ORDERED: *HR* Metoprolol 5 MG/5 ML VIAL IVP PRN (12:26)
[2021-04-22] MEDS: Metoprolol 100 MG TABLET PO SCH ×2 (12:39→21:05)
[2021-04-22] MEDS ORDERED: Magnesium Oxide 400 MG TABLET PO SCH (21:00)
[2021-04-22] MEDS: traZODone 50 MG TABLET PO PRN (21:05)
[2021-04-23] MEDS ORDERED: traZODone 50 MG TABLET PO ONE (00:45)
[2021-04-23] MEDS: Insulin LISPRO 300 UNITS/3 ML VIAL SUBQ SCH (00:55)
[2021-04-23 04:09] LABS: Hematocrit 42.8 % (37.5-50.1); Hemoglobin 14.1 g/dL (12.9-16.9); Mean Corpuscular HGB Conc 32.9 g/dL (31.6-35.5); Mean Corpuscular Hemoglobin 29.6 pg (28.0-33.3); Mean Corpuscular Volume 89.9 fL (83.0-100.0); Mean Platelet Volume 11.2 fL (9.4-12.4); Platelet Count 253 K/mcL (140-400); Red Blood Count 4.76 M/mcL (4.19-5.50); Red Cell Distribution Width 14.6 % (11.5-14.5); White Blood Count 8.4 K/mcL (4.3-11.1)
[2021-04-23 04:27] LABS: BUN/Creatinine Ratio 13 (6-26); Blood Urea Nitrogen 7 mg/dL (8-23); Calcium 8.9 mg/dL (8.6-10.3); Carbon Dioxide 23 mEq/L (23-29); Chloride 104 mEq/L (98-107); Glucose 164 mg/dL (70-105); Osmolality,Calculated 282 (280-300); Potassium 3.6 mEq/L (3.5-5.1); Sodium 135 mEq/L (136-145); eGFR For African Americans > 60 (> 60); eGFR For Non-African Americans > 60 (> 60)
[2021-04-23] MEDS: Aspirin 81 MG TAB.CHEW PO SCH (08:46)
[2021-04-23] MEDS: DilTIAZem CD (24hr) 120 MG CAP.ER.24H PO SCH (08:46)
[2021-04-23] MEDS: *HR* Metformin 500 MG TABLET PO SCH (08:46)
[2021-04-23] MEDS: Metoprolol 100 MG TABLET PO SCH (08:46)
[2021-04-23] MEDS: Gabapentin 300 MG CAPSULE PO SCH (08:46)
[2021-04-23] MEDS: Apixaban 5 MG TABLET PO SCH (08:47)
[2021-04-23] MEDS: Hyoscyamine SL 0.125 MG TAB.SUBL SL SCH (08:47)
[2021-04-23] MEDS: Isosorbide MONOnitrate (24 HR) 60 MG TAB.ER.24H PO SCH (08:47)
[2021-04-23] MEDS: Multivit/Ca/Min/Fe/FA 1 TAB TABLET PO SCH (08:47)
[2021-04-23 10:14] VITALS: BP 108/74; PULSE 77; TEMP 97.9; O2SAT 92
[2021-04-23] MEDS: Budesonide/Formoterol 160/4.5 1 PUFF INH IH SCH (11:10)
[2021-04-23] MEDS ORDERED: traZODone 50 MG TABLET PO PRN (21:00)
== END 2021-04-23 12:00 | disposition home or self-care (01) | DRG 389 ==
LOC: 3BNU 12:50 → EMEROOARM 12:50 → SUATTDRO 04-16 01:37 → 3ANU 04-16 01:50 → SUATTDRO 04-16 15:21
PROVIDERS: ADMIT Internal Medicine; ATTEND Family Medicine

== ENCOUNTER 2021-06-16 12:45 | Observation (INO) ==
[2021-06-16] MEDS ORDERED: Ondansetron 4 MG/2 ML VIAL IVP ONE (14:13)
[2021-06-16] MEDS ORDERED: 0.9 % Sodium Chloride 1,000 ML IVC ONE ×2 (14:13→16:52)
[2021-06-16] MEDS ORDERED: Morphine Sulfate 2 MG/ML SYRINGE IVP ONE (14:13)
[2021-06-16] MEDS ORDERED: Isovue-370 500 ML BOTTLE IVP ONE (14:15)
[2021-06-16 15:02] LABS: Basophils % 0.3 %; Eosinophils % 0.2 %; Hematocrit 39.4 % (37.5-50.1); Hemoglobin 12.9 g/dL (12.9-16.9); Immature Granulocytes % 0.3 % (0-4); Lymphocytes # 1.2 K/mcL (0.6-4.6); Lymphocytes % 8.9 %; Mean Corpuscular HGB Conc 32.7 g/dL (31.6-35.5); Mean Corpuscular Hemoglobin 29.5 pg (28.0-33.3); Mean Platelet Volume 11.8 fL (9.4-12.4); Monocytes # 1.1 K/mcL (0.0-1.3); Platelet Count 249 K/mcL (140-400); Red Blood Count 4.38 M/mcL (4.19-5.50); Segmented Neutrophils % 82.3 %; White Blood Count 13.4 K/mcL (4.3-11.1)
[2021-06-16 15:15] LABS: INR 1.3; Prothrombin Time 14.8 Seconds (9.4-12.1)
[2021-06-16 15:18] LABS: Activated Partial Thrombo Time 27.9 Seconds (26.0-36.0)
[2021-06-16 15:28] LABS: Alanine Aminotransferase 48 Units/L (7-52); Albumin 4.3 g/dL (3.5-5.7); Albumin/Globulin Ratio 1.4 (1.1-2.2); Alkaline Phosphatase 81 Units/L (34-104); Amylase 14 Units/L (29-103); Aspartate Amino Transferase 32 Units/L (13-39); BUN/Creatinine Ratio 14 (6-26); Bilirubin,Indirect 0.5 mg/dL (0.0-1.0); Bilirubin,Total 0.5 mg/dL (0.3-1.0); Blood Urea Nitrogen 8 mg/dL (8-23); Calcium 9.6 mg/dL (8.6-10.3); Carbon Dioxide 27 mEq/L (23-29); Chloride 100 mEq/L (98-107); Glucose 150 mg/dL (70-105); Lipase 15 Units/L (11-82); Osmolality,Calculated 283 (280-300); Potassium 4.5 mEq/L (3.5-5.1); Sodium 136 mEq/L (136-145); Total Protein 7.3 g/dL (6.4-8.9); eGFR For African Americans > 60 (> 60); eGFR For Non-African Americans > 60 (> 60)
[2021-06-16] MEDS ORDERED: Naloxone 0.4 MG/ML INJ IVP PRN (17:35)
[2021-06-16] MEDS ORDERED: *HR* Dextrose 50 % in Water (Syg) 50 ML SYRINGE IVP PRN (17:46)
[2021-06-16] MEDS ORDERED: Dextrose Gel 15 GM/37.5 ML TUBE PO PRN ×2 (17:46)
[2021-06-16] MEDS ORDERED: D5% in Water 1,000 ML IVC PRN (17:46)
[2021-06-16] MEDS: Insulin LISPRO 300 UNITS/3 ML VIAL SUBQ SCH (21:10)
[2021-06-16] MEDS ORDERED: *HR* LORazepam 2 MG/ML VIAL IVP ONE (21:35)
[2021-06-17] MEDS: Insulin LISPRO 300 UNITS/3 ML VIAL SUBQ SCH ×3 (01:07→13:08)
[2021-06-17] MEDS: 0.9 % Sodium Chloride 1,000 ML IVC SCH ×3 (01:11→21:16)
[2021-06-17 05:21] LABS: Basophils % 0.4 %; Eosinophils # 0.2 K/mcL (0.0-0.6); Eosinophils % 2.2 %; Hematocrit 36.8 % (37.5-50.1); Hemoglobin 11.9 g/dL (12.9-16.9); Immature Granulocytes % 0.3 % (0-4); Lymphocytes # 1.5 K/mcL (0.6-4.6); Lymphocytes % 15.9 %; Mean Corpuscular HGB Conc 32.3 g/dL (31.6-35.5); Mean Corpuscular Hemoglobin 29.5 pg (28.0-33.3); Mean Corpuscular Volume 91.3 fL (83.0-100.0); Mean Platelet Volume 11.8 fL (9.4-12.4); Monocytes # 1.1 K/mcL (0.0-1.3); Monocytes % 11.9 %; Neutrophils # 6.5 K/mcL (1.6-8.9); Platelet Count 217 K/mcL (140-400); Red Blood Count 4.03 M/mcL (4.19-5.50); Red Cell Distribution Width 13.2 % (11.5-14.5); Segmented Neutrophils % 69.3 %; White Blood Count 9.4 K/mcL (4.3-11.1)
[2021-06-17 05:30] LABS: BUN/Creatinine Ratio 18 (6-26); Blood Urea Nitrogen 10 mg/dL (8-23); Calcium 8.5 mg/dL (8.6-10.3); Carbon Dioxide 28 mEq/L (23-29); Chloride 103 mEq/L (98-107); Glucose 120 mg/dL (70-105); Osmolality,Calculated 280 (280-300); Potassium 3.7 mEq/L (3.5-5.1); Sodium 135 mEq/L (136-145); eGFR For African Americans > 60 (> 60); eGFR For Non-African Americans > 60 (> 60)
[2021-06-17] MEDS ORDERED: Ipratropium/Albuterol Neb 3 ML IH PRN (17:17)
[2021-06-17] MEDS ORDERED: *HR* LORazepam 0.5 MG TABLET PO ONE (23:56)
[2021-06-18] MEDS ORDERED: *HR* LORazepam 2 MG/ML VIAL IVP ONE (00:09)
[2021-06-18] MEDS: Insulin LISPRO 300 UNITS/3 ML VIAL SUBQ SCH ×6 (00:20→17:51)
[2021-06-18 00:56] LABS: Basophils % 0.5 %; Eosinophils # 0.3 K/mcL (0.0-0.6); Eosinophils % 4.6 %; Hematocrit 35.5 % (37.5-50.1); Hemoglobin 11.6 g/dL (12.9-16.9); Immature Granulocytes % 0.2 % (0-4); Lymphocytes # 1.6 K/mcL (0.6-4.6); Lymphocytes % 25.7 %; Mean Corpuscular HGB Conc 32.7 g/dL (31.6-35.5); Mean Corpuscular Hemoglobin 29.9 pg (28.0-33.3); Mean Corpuscular Volume 91.5 fL (83.0-100.0); Monocytes # 0.7 K/mcL (0.0-1.3); Monocytes % 12.1 %; Neutrophils # 3.5 K/mcL (1.6-8.9); Platelet Count 210 K/mcL (140-400); Red Blood Count 3.88 M/mcL (4.19-5.50); Red Cell Distribution Width 13.2 % (11.5-14.5); Segmented Neutrophils % 56.9 %; White Blood Count 6.1 K/mcL (4.3-11.1)
[2021-06-18 01:17] LABS: BUN/Creatinine Ratio 16 (6-26); Blood Urea Nitrogen 8 mg/dL (8-23); Calcium 8.2 mg/dL (8.6-10.3); Carbon Dioxide 27 mEq/L (23-29); Chloride 105 mEq/L (98-107); Glucose 92 mg/dL (70-105); Osmolality,Calculated 284 (280-300); Potassium 3.6 mEq/L (3.5-5.1); Sodium 138 mEq/L (136-145); eGFR For African Americans > 60 (> 60); eGFR For Non-African Americans > 60 (> 60)
[2021-06-18] MEDS: 0.9 % Sodium Chloride 1,000 ML IVC SCH (05:09)
[2021-06-18] MEDS ORDERED: Sennosides 8.6 MG TABLET PO PRN (10:32)
[2021-06-18] MEDS ORDERED: Melatonin 3 MG TABLET PO PRN (14:10)
[2021-06-19 06:37] VITALS: BP 159/76; PULSE 64; TEMP 97.7; O2SAT 95
[2021-06-19 07:23] LABS: Basophils # 0.1 K/mcL (0.0-0.2); Basophils % 0.8 %; Eosinophils # 0.2 K/mcL (0.0-0.6); Eosinophils % 3.2 %; Hematocrit 38.1 % (37.5-50.1); Hemoglobin 12.7 g/dL (12.9-16.9); Immature Granulocytes % 0.3 % (0-4); Lymphocytes # 1.4 K/mcL (0.6-4.6); Lymphocytes % 20.8 %; Mean Corpuscular HGB Conc 33.3 g/dL (31.6-35.5); Mean Corpuscular Volume 90.1 fL (83.0-100.0); Monocytes # 0.8 K/mcL (0.0-1.3); Monocytes % 12.6 %; Neutrophils # 4.2 K/mcL (1.6-8.9); Platelet Count 244 K/mcL (140-400); Red Blood Count 4.23 M/mcL (4.19-5.50); Red Cell Distribution Width 12.9 % (11.5-14.5); Segmented Neutrophils % 62.3 %; White Blood Count 6.7 K/mcL (4.3-11.1)
[2021-06-19 07:44] LABS: BUN/Creatinine Ratio 10 (6-26); Blood Urea Nitrogen 5 mg/dL (8-23); Calcium 9.2 mg/dL (8.6-10.3); Carbon Dioxide 26 mEq/L (23-29); Chloride 104 mEq/L (98-107); Glucose 149 mg/dL (70-105); Osmolality,Calculated 282 (280-300); Potassium 3.9 mEq/L (3.5-5.1); Sodium 136 mEq/L (136-145); eGFR For African Americans > 60 (> 60); eGFR For Non-African Americans > 60 (> 60)
[2021-06-19] MEDS: Insulin LISPRO 300 UNITS/3 ML VIAL SUBQ SCH (07:54)
== END 2021-06-19 12:55 | disposition home or self-care (01) ==
LOC: EMEROOARM 12:45 → 4WAOSI 12:45
PROVIDERS: ADMIT Internal Medicine; ATTEND Internal Medicine

== ENCOUNTER 2022-02-01 08:54 | Observation (INO) ==
[2022-02-01 09:29] LABS: Basophils # 0.1 K/mcL (0.0-0.2); Basophils % 0.2 %; Hematocrit 41.4 % (37.5-50.1); Hemoglobin 13.5 g/dL (12.9-16.9); Immature Granulocytes % 0.3 % (0-4); Lymphocytes # 1.1 K/mcL (0.6-4.6); Lymphocytes % 5.5 %; Mean Corpuscular HGB Conc 32.6 g/dL (31.6-35.5); Mean Corpuscular Hemoglobin 27.8 pg (28.0-33.3); Mean Corpuscular Volume 85.4 fL (83.0-100.0); Mean Platelet Volume 11.3 fL (9.4-12.4); Monocytes # 1.5 K/mcL (0.0-1.3); Monocytes % 7.3 %; Neutrophils # 17.3 K/mcL (1.6-8.9); Platelet Count 285 K/mcL (140-400); Red Blood Count 4.85 M/mcL (4.19-5.50); Red Cell Distribution Width 14.1 % (11.5-14.5); Segmented Neutrophils % 86.7 %
[2022-02-01] MEDS ORDERED: Iopamidol - 370 500 ML MLS IVP ONE (09:32)
[2022-02-01] MEDS ORDERED: *HR* HYDROmorphone (PF) 1 MG/ML SYRINGE IVP ONE ×2 (09:34→12:36)
[2022-02-01] MEDS ORDERED: Prochlorperazine 10 MG/2 ML VIAL IVP STA (09:34)
[2022-02-01 09:50] LABS: Alanine Aminotransferase 29 Units/L (7-52); Albumin 4.3 g/dL (3.5-5.7); Albumin/Globulin Ratio 1.2 (1.1-2.2); Alkaline Phosphatase 91 Units/L (34-104); Amylase 11 Units/L (29-103); Aspartate Amino Transferase 23 Units/L (13-39); BUN/Creatinine Ratio 15 (6-26); Bilirubin,Direct 0.1 mg/dL (0.0-0.2); Bilirubin,Indirect 0.4 mg/dL (0.0-1.0); Bilirubin,Total 0.5 mg/dL (0.3-1.0); Blood Urea Nitrogen 11 mg/dL (8-23); Calcium 9.8 mg/dL (8.6-10.3); Carbon Dioxide 29 mEq/L (23-29); Chloride 98 mEq/L (98-107); Globulin 3.7 g/dL (2.4-3.5); Glucose 160 mg/dL (70-105); Lipase 10 Units/L (11-82); Osmolality,Calculated 283 (280-300); Potassium 4.1 mEq/L (3.5-5.1); Sodium 135 mEq/L (136-145)
[2022-02-01 10:31] LABS: Bilirubin,Urine Negative (Negative); Blood,Urine Moderate (Negative); Clarity,Urine Clear (Clear); Color,Urine Yellow (Yellow); Glucose,Urine (UA) 30 mg/dL (Normal); Ketones,Urine Negative (Negative); Leukocyte Esterase,Urine Negative (Negative); Mucus,Urine Few per lpf (None-Few); Nitrite,Urine Negative (Negative); PH,Urine 8.5 pH Units (5.0-8.0); Protein,Urine 70 mg/dL (Neg-Trace); RBC,Urine TNTC per hpf (0-3); Specific Gravity,Urine > 1.030 (1.010-1.025); Urobilinogen,Urine Normal (Normal); WBC,Urine 0-3 per hpf (0-3)
[2022-02-01] MEDS ORDERED: Ondansetron 4 MG/2 ML VIAL IVP PRN (14:37)
[2022-02-01] MEDS ORDERED: Naloxone 0.4 MG/ML INJ IVP PRN (14:37)
[2022-02-01] MEDS ORDERED: Dextrose Gel 15 GM/37.5 ML TUBE PO PRN ×2 (15:02)
[2022-02-01] MEDS ORDERED: *HR* Dextrose 50 % in Water (Syg) 50 ML SYRINGE IVP PRN (15:02)
[2022-02-01] MEDS ORDERED: D5% in Water 1,000 ML IVC PRN (15:02)
[2022-02-01 16:39] LABS: Troponin I < 0.03 ng/mL (< 0.04)
[2022-02-01] MEDS: 0.9 % Sodium Chloride 1,000 ML IVC SCH (17:12)
[2022-02-01] MEDS: MetroNIDAZOLE 500 MG/100 ML 500 MG/100 ML BAG IVPB SCH (17:12)
[2022-02-01] MEDS: *HR* Metoprolol 5 MG/5 ML VIAL IVP SCH ×2 (17:32→23:40)
[2022-02-01] MEDS: Insulin LISPRO 300 UNITS/3 ML VIAL SUBQ SCH (18:44)
[2022-02-01] MEDS: *HR* Heparin 5,000 UNIT/ML VIAL SQ SCH (23:39)
[2022-02-02] MEDS: MetroNIDAZOLE 500 MG/100 ML 500 MG/100 ML BAG IVPB SCH ×2 (00:07→08:36)
[2022-02-02] MEDS: Budesonide/Formoterol 160/4.5 1 PUFF INH IH SCH ×3 (00:09→22:32)
[2022-02-02] MEDS: Insulin LISPRO 300 UNITS/3 ML VIAL SUBQ SCH ×4 (03:05→17:34)
[2022-02-02 03:17] LABS: Basophils % 0.2 %; Eosinophils % 0.3 %; Hematocrit 40.2 % (37.5-50.1); Hemoglobin 12.6 g/dL (12.9-16.9); Immature Granulocytes % 0.2 % (0-4); Lymphocytes # 1.2 K/mcL (0.6-4.6); Lymphocytes % 10.5 %; Mean Corpuscular HGB Conc 31.3 g/dL (31.6-35.5); Mean Corpuscular Hemoglobin 27.3 pg (28.0-33.3); Mean Platelet Volume 11.5 fL (9.4-12.4); Monocytes # 1.6 K/mcL (0.0-1.3); Monocytes % 14.3 %; Neutrophils # 8.4 K/mcL (1.6-8.9); Platelet Count 253 K/mcL (140-400); Red Blood Count 4.62 M/mcL (4.19-5.50); Red Cell Distribution Width 14.6 % (11.5-14.5); Segmented Neutrophils % 74.5 %; White Blood Count 11.2 K/mcL (4.3-11.1)
[2022-02-02 03:39] LABS: BUN/Creatinine Ratio 21 (6-26); Blood Urea Nitrogen 14 mg/dL (8-23); Calcium 8.6 mg/dL (8.6-10.3); Carbon Dioxide 26 mEq/L (23-29); Chloride 102 mEq/L (98-107); Glucose 107 mg/dL (70-105); Osmolality,Calculated 285 (280-300); Sodium 137 mEq/L (136-145)
[2022-02-02] MEDS: 0.9 % Sodium Chloride 1,000 ML IVC SCH (05:13)
[2022-02-02] MEDS: *HR* Heparin 5,000 UNIT/ML VIAL SQ SCH (05:14)
[2022-02-02] MEDS: *HR* Metoprolol 5 MG/5 ML VIAL IVP SCH (05:15)
[2022-02-02] MEDS: Pantoprazole 40 MG VIAL IVP SCH (08:37)
[2022-02-02] MEDS ORDERED: *HR* Metoprolol 5 MG/5 ML VIAL IVP PRN (12:12)
[2022-02-02] MEDS: Isosorbide MONOnitrate (24 HR) 60 MG TAB.ER.24H PO SCH (15:53)
[2022-02-02] MEDS: DilTIAZem CD (24hr) 120 MG CAP.ER.24H PO SCH (15:54)
[2022-02-02] MEDS: Gabapentin 300 MG CAPSULE PO SCH (21:07)
[2022-02-02] MEDS: Metoprolol 100 MG TABLET PO SCH (21:07)
[2022-02-02] MEDS: Apixaban 5 MG TABLET PO SCH (21:08)
[2022-02-02] MEDS ORDERED: MOM Conc 10 ML UD.LIQ PO ONE (23:56)
[2022-02-03] MEDS: Melatonin 3 MG TABLET PO PRN ×2 (00:56→20:47)
[2022-02-03] MEDS: Insulin LISPRO 300 UNITS/3 ML VIAL SUBQ SCH ×4 (01:12→19:29)
[2022-02-03 02:09] LABS: Basophils # 0.1 K/mcL (0.0-0.2); Basophils % 1.2 %; Eosinophils # 0.3 K/mcL (0.0-0.6); Eosinophils % 5.1 %; Immature Granulocytes % 0.2 % (0-4); Lymphocytes # 1.5 K/mcL (0.6-4.6); Lymphocytes % 26.4 %; Mean Corpuscular HGB Conc 31.4 g/dL (31.6-35.5); Mean Corpuscular Hemoglobin 27.6 pg (28.0-33.3); Mean Corpuscular Volume 87.7 fL (83.0-100.0); Mean Platelet Volume 11.4 fL (9.4-12.4); Monocytes # 0.8 K/mcL (0.0-1.3); Monocytes % 13.8 %; Platelet Count 231 K/mcL (140-400); Red Blood Count 3.99 M/mcL (4.19-5.50); Red Cell Distribution Width 14.7 % (11.5-14.5); Segmented Neutrophils % 53.3 %; White Blood Count 5.6 K/mcL (4.3-11.1)
[2022-02-03] MEDS: Budesonide/Formoterol 160/4.5 1 PUFF INH IH SCH ×2 (08:19→20:16)
[2022-02-03] MEDS: Aspirin Enteric Coated 81 MG Tablet PO SCH (08:23)
[2022-02-03] MEDS: Gabapentin 300 MG CAPSULE PO SCH ×2 (08:23→20:47)
[2022-02-03] MEDS: Pantoprazole 40 MG VIAL IVP SCH (08:23)
[2022-02-03] MEDS: Apixaban 5 MG TABLET PO SCH ×2 (08:24→20:47)
[2022-02-03] MEDS: Isosorbide MONOnitrate (24 HR) 60 MG TAB.ER.24H PO SCH (08:24)
[2022-02-03] MEDS: Metoprolol 100 MG TABLET PO SCH ×2 (08:24→20:47)
[2022-02-03] MEDS: DilTIAZem CD (24hr) 120 MG CAP.ER.24H PO SCH (08:24)
[2022-02-03] MEDS ORDERED: Isosorbide MONOnitrate (24 HR) 60 MG TAB.ER.24H PO SCH (09:00)
[2022-02-03] MEDS ORDERED: DilTIAZem CD (24hr) 120 MG CAP.ER.24H PO SCH (09:00)
[2022-02-03] MEDS ORDERED: MOM Conc 10 ML UD.LIQ PO ONE ×2 (14:36→20:21)
[2022-02-03] MEDS: *HR* Heparin 5,000 UNIT/ML VIAL SQ SCH (19:28)
[2022-02-03] MEDS: *HR* Metoprolol 5 MG/5 ML VIAL IVP SCH (19:30)
[2022-02-04] MEDS: Insulin LISPRO 300 UNITS/3 ML VIAL SUBQ SCH ×2 (00:49→05:53)
[2022-02-04] MEDS: Budesonide/Formoterol 160/4.5 1 PUFF INH IH SCH (07:44)
[2022-02-04 07:47] VITALS: O2SAT 95
[2022-02-04] MEDS: Aspirin Enteric Coated 81 MG Tablet PO SCH (08:52)
[2022-02-04] MEDS: Metoprolol 100 MG TABLET PO SCH (08:52)
[2022-02-04] MEDS: DilTIAZem CD (24hr) 120 MG CAP.ER.24H PO SCH (08:53)
[2022-02-04] MEDS: Apixaban 5 MG TABLET PO SCH (08:53)
[2022-02-04] MEDS: Isosorbide MONOnitrate (24 HR) 60 MG TAB.ER.24H PO SCH (08:53)
[2022-02-04] MEDS: Gabapentin 300 MG CAPSULE PO SCH (08:53)
[2022-02-04] MEDS ORDERED: polyethylene glycoL 3350 17 GM POWD.PACK PO SCH (09:00)
[2022-02-04 10:33] VITALS: BP 147/92; PULSE 55; TEMP 97.9
== END 2022-02-04 11:13 | disposition home or self-care (01) ==
LOC: EMEROOARM 08:54 → 3ANU 08:54 → SUATTDRO 14:48 → 3ANU 15:31
PROVIDERS: ADMIT General Practice; ATTEND Internal Medicine